=== PATIENT | female | born 1945 | race Caucasian/White ===

== ENCOUNTER → 2016-12-11 | Outpatient (CLI) | payer OTHER ==
[~2016-12-11] MED LIST: ASPI-113 PO; CEPH500C2 PO; CHOL100010 PO; COLC0.6T54 PO; DOCU-94 PO; DOXY100C76 PO; FURO80TA63 PO; HYDR-5688 PO; HYDR50TA3 PO; METO100T14 PO; OXYC-57 PO; POTA8CAP6 PO; SENN1TAB77 PO
[2016-12-11 12:27] LABS: CHOLESTEROL/HDL RATIO 3.4
[2016-12-11 12:33] LABS: BLOOD UREA NITROGEN 32 mg/dl (7-18); BUN/CREATININE RATIO 24.2 (10-20); CALCIUM 10.7 mg/dl (8.5-10.1); CARBON DIOXIDE 30 mmol/L (21-32); CHLORIDE 108 mmol/L (98-107); GLUCOSE 94 mg/dl (70-99); POTASSIUM 4.4 mmol/L (3.5-5.1); SODIUM 143 mmol/L (136-145)
[2016-12-11 12:39] LABS: MAGNESIUM 2.4 mg/dl (1.8-2.4); THYROID STIMULATING HORMONE 1.45 uIu/ml (0.300-4.500)
[2016-12-11 13:05] LABS: ESTIMATED AVERAGE GLUCOSE 91 mg/dl; HA1C FLAG Normal (Normal)
== END | disposition home or self-care (01) ==
LOC: C.LABPBG 08:52
PROVIDERS: ATTEND Family Medicine
DX: I25.10 Atherosclerotic heart disease of native coronary artery without angina pectoris (principal); I10 Essential (primary) hypertension; E66.9 Obesity, unspecified; R06.09 Other forms of dyspnea; I50.42 Chronic combined systolic (congestive) and diastolic (congestive) heart failure; E87.6 Hypokalemia; R73.9 Hyperglycemia, unspecified

== ENCOUNTER 2017-01-27 06:41 | Emergency (ER) | payer OTHER ==
[~2017-01-27] VITALS: Ht 152.4 cm; Wt 81.6 kg
[~2017-01-27 06:41] MED LIST changes: -CEPH500C2 PO; -DOCU-94 PO; -DOXY100C76 PO; -OXYC-57 PO; -SENN1TAB77 PO
[2017-01-27 06:50] VITALS: TEMP 36.7; Ht 152.4 cm; Wt 81.6 kg
[2017-01-27] MEDS ORDERED: MoRPHine SULFATE 4 MG/ML 1 ML CARP\\VIAL IV STA (06:58)
[2017-01-27] MEDS ORDERED: CEFTRIAXONE SOD INJ 1 GM ADDVIAL IV STA (06:58)
[2017-01-27] MEDS ORDERED: SODIUM CHLORIDE 0.9% 500ML 500 ML IV STA (06:58)
[2017-01-27] MEDS ORDERED: DOXYCYCLINE HYCLATE 100 MG CAP PO STA (06:58)
[2017-01-27] MEDS ORDERED: ONDANSETRON INJ 2 MG/ML 2 ML VIAL IV STA (06:58)
--- NOTE | 2017-01-27 06:59 | EMERGENCY ROOM VISIT NOTE ---
History Report prepared by Colt: Teri Marte Under the Supervision of: Dr. Chriss Gibbs M.D. First contact with patient: 06:53 Chief Complaint: ELBOW PAIN/INJURY Stated Complaint: RIGHT ELBOW PAIN History of Present Illness The patient is a 71 year old female who presents to the Emergency Room with complaints of persistent right elbow pain that began four days ago. She currently rates her discomfort as a 10/10 in severity. The patient states that her pain began [place] and since then has worsened. She denies any injury to the area. The patient states that movement of her elbow worsens her pain. She states that she has hydrocodone on hand for her chronic back pain, noting that she has taken those for her discomfort. The patient denies ever seeing an orthopedic doctor in the past. Source of History: patient Onset: four days ago Position: elbow (right) Symptom Intensity: 10/10 Timing: worsening, other (persistent) Modifying Factors (Worsening): movement (of right elebow) Review of Systems See HPI for pertinent positives & negatives. A total of 10 systems reviewed and were otherwise negative. Past Medical & Surgical Medical Problems: (1) CAD (coronary artery disease) (2) Dyslipidemia (3) GERD (gastroesophageal reflux disease) (4) Heart disease (5) History of coronary artery stent placement (6) HTN (hypertension) (7) Hypertension Nos (8) Osteoarthritis Surgical Problems: (1) History of arthroscopy of right shoulder (2) History of cholecystectomy (3) Hx of CABG Family History Cancer Diabetes mellitus Heart disease Hypertension Social History Smoking Status: Former Smoker Alcohol Use: none Housing Status: lives alone Occupation Status: employed Current/Historical Medications Scheduled Aspirin Enteric Coated (Ecotrin Or Generic), 325 MG PO DAILY Cephalexin Monohydrate (Keflex), 500 MG PO QID Cholecalciferol (Vitamin D), 2,000 INTER.UNIT PO DAILY Docusate Sodium (Colace), 1 CAP PO BID Doxycycline Monohydrate (Monodox), 100 MG PO BID Furosemide (Lasix), 40 MG PO DAILY Hydrochlorothiazide (Hctz), 1 TAB PO DAILY Metoprolol Tartrate (Lopressor) (Lopressor), 100 MG PO DAILY Potassium Chloride (Klor-Con Ext Rel), 20 MEQ PO DAILY Sennosides (Senokot), 8.6 MG PO HS Scheduled PRN Colchicine (Colchicine), 0.6 MG PO DIRECTED PRN for gout Hydrocodone/Acetaminophen 5MG/325MG ([place] 5MG/325MG), 1 TAB PO Q6H PRN for Pain Oxycodone/Acetaminophen 5MG/325MG (Percocet 5MG/325MG), 1-2 TAB PO Q4H PRN for Pain Allergies Coded Allergies: Sulfa Drugs (Verified Allergy, Mild, 03/11/16) Sulfamethoxazole (Verified Allergy, Mild, 03/11/16) Trimethoprim (Verified Allergy, Mild, 03/11/16) Latex1 -Allergic Contact Dermititis (Verified Adverse Reaction, Intermediate, "COUGH, SWEAT", 03/11/16) Physical Exam Vital Signs Date Time Temp Pulse Resp B/P Pulse Ox O2 Delivery O2 Flow Rate FiO2 01/27/17 08:56 64 20 182/81 94 01/27/17 08:00 58 20 135/95 95 Room Air 01/27/17 07:40 62 20 205/88 97 Room Air 01/27/17 06:50 36.7 67 16 182/94 99 Room Air Physical Exam GENERAL: Patient is a healthy-appearing well-nourished HEAD: Normocephalic atraumatic EYES: Ocular movements intact pupils equal and react to light OROPHARYNX mucous membranes are moist no exudates present no erythema or edema present NECK: Supple no nuchal rigidity CHEST: Good equal expansion LUNGS: Clear and equal to auscultation CARDIAC: Normal S1 and S2 ABDOMEN: Soft nontender no guarding BACK: No CVA tenderness EXTREMITIES: 2 inch area of redness to the olecranon bursa, but no evidence of fluctuance or evidence of an abscess to be drained. NEURO: Patient is following commands is answering questions appropriately. Alert and oriented x3 Cranial Nerves 2-12 grossly intact Medical Decision & Procedures ER Provider Diagnostic Interpretation: X-ray results as stated below per interpretation by me and the radiologist: RIGHT ELBOW 3 VIEWS CLINICAL HISTORY: Right elbow pain of several days' duration. FINDINGS: 3 views of the right elbow are obtained. No prior studies are available for comparison at the time of dictation. The skeletal structures are osteopenic. No acute fracture is identified. The joint spaces appear preserved. There are small enthesophytes arising from the humeral epicondyles. No joint effusion is identified. There is calcification of the distal triceps tendon at its insertion. Soft tissue edema is present dorsally. IMPRESSION: 1. Soft tissue swelling with no radiographic evidence of acute fracture. 2. Osteopenia and mild degenerative change as above. Electronically signed by: Johnny Willis M.D. 01/27/2017 7:42 AM Dictated Date/Time: 01/27/2017 7:41 AM Laboratory Results 01/27/17 07:10 Red Blood Count 5.38, Mean Corpuscular Volume 89.6, Mean Corpuscular Hemoglobin 30.3, Mean Corpuscular Hemoglobin Concent 33.8, Mean Platelet Volume 11.5, Neutrophils (%) (Auto) 75.9, Lymphocytes (%) (Auto) 12.6, Monocytes (%) (Auto) 10.3, Eosinophils (%) (Auto) 0.7, Basophils (%) (Auto) 0.2, Neutrophils # (Auto ) 8.90, Lymphocytes # (Auto) 1.48, Monocytes # (Auto) 1.21, Eosinophils # (Auto ) 0.08, Basophils # (Auto) 0.02 01/27/17 07:10 Test 01/27/17 07:10 White Blood Count 11.73 K/uL (4.8-10.8) Red Blood Count 5.38 M/uL (4.2-5.4) Hemoglobin 16.3 g/dL (12.0-16.0) Hematocrit 48.2 % (37-47) Mean Corpuscular Volume 89.6 fL (80-100) Mean Corpuscular Hemoglobin 30.3 pg (25-34) Mean Corpuscular Hemoglobin Concent 33.8 g/dl (32-36) Platelet Count 296 K/uL (130-400) Mean Platelet Volume 11.5 fL (7.4-10.4) Neutrophils (%) (Auto) 75.9 % Lymphocytes (%) (Auto) 12.6 % Monocytes (%) (Auto) 10.3 % Eosinophils (%) (Auto) 0.7 % Basophils (%) (Auto) 0.2 % Neutrophils # (Auto) 8.90 K/uL (1.4-6.5) Lymphocytes # (Auto) 1.48 K/uL (1.2-3.4) Monocytes # (Auto) 1.21 K/uL (0.11-0.59) Eosinophils # (Auto) 0.08 K/uL (0-0.5) Basophils # (Auto) 0.02 K/uL (0-0.2) RDW Standard Deviation 41.9 fL (36.4-46.3) RDW Coefficient of Variation 12.9 % (11.5-14.5) Immature Granulocyte % (Auto) 0.3 % Immature Granulocyte # (Auto) 0.04 K/uL (0.00-0.02) Erythrocyte Sedimentation Rate 8 mm/hr (0-21) Anion Gap 5.0 mmol/L (3-11) Est Creatinine Clear Calc Drug Dose 38.1 ml/min Estimated GFR () 48.1 Estimated GFR (Non- 41.5 BUN/Creatinine Ratio 27.4 (10-20) Uric Acid 10.1 mg/dl (2.6-7.2) Calcium Level 10.5 mg/dl (8.5-10.1) Total Bilirubin 0.8 mg/dl (0.2-1) Direct Bilirubin 0.2 mg/dl (0-0.2) Aspartate Amino Transf (AST/SGOT) 16 U/L (15-37) Alanine Aminotransferase (ALT/SGPT) 25 U/L (12-78) Alkaline Phosphatase 116 U/L (45-117) C-Reactive Protein 10.90 mg/dl (0-0.29) Total Protein 7.6 gm/dl (6.4-8.2) Albumin 3.3 gm/dl (3.4-5.0) Thyroid Stimulating Hormone (TSH) 1.230 uIu/ml (0.300-4.500) Lyme Disease IgG Antibody NEG (NEG) Anti-Streptolysin O Antibody Screen NEG IU/ml (<200 IU) Labs reviewed by ED physician. Medications Administered Medications (Trade) Dose Ordered Sig/Andrew Route Start Time Stop Time Status Last Admin Dose Admin Ceftriaxone Sodium (Rocephin Inj) 1 gm NOW STAT IV 01/27/17 06:58 01/27/17 07:02 DC 01/27/17 07:46 1 GM Doxycycline Hyclate 100 mg 100 mg ONE STAT PO 01/27/17 06:58 01/27/17 07:02 DC 01/27/17 07:57 100 MG Sodium Chloride (Nss 500ml) 500 ml @ 999 mls/hr Q31M STAT IV 01/27/17 06:58 01/27/17 07:28 DC 01/27/17 06:58 999 MLS/HR Morphine Sulfate (MoRPHine SULFATE INJ) 4 mg NOW STAT IV 01/27/17 06:58 01/27/17 07:02 DC 01/27/17 07:42 4 MG Ondansetron HCl (Zofran Inj) 4 mg NOW STAT IV 01/27/17 06:58 01/27/17 07:02 DC 01/27/17 07:41 4 MG ED Course 0654: Past medical records reviewed. The patient was evaluated in room A11B. A complete history and physical examination was performed. 0658: Ordered Zofran Inj 4 mg IV, Morphine Sulfate 4 mg IV, Sodium Chloride 500 ml @ 999 mls/hr IV, Vibramycin Cap 100 mg PO, Rocephin Inj 1 gm IV. 0805: I reevaluated the patient and she is resting comfortably. I discussed all the exam findings with her and I discussed the treatment plan. She verbalized complete understanding and agreement. She is ready to go home. Medical Decision Differential diagnosis: Etiologies such as cellulitis, abscess, MRSA infection, DVT, necrotizing fasciitis, dermatitis, drug eruption, as well as others were entertained. This is a 71-year-old female who presents emergency department complaining of right elbow pain. Patient has an area of cellulitis to the left elbow and I do not believe has a septic joint and she has full range of motion of the elbow. She does have a slight elevation in her white blood cell count however her ESR is normal. Based on these findings I will start the patient on Rocephin and doxycycline as she is allergic to Bactrim. The patient's x-rays do not show any evidence of fracture dislocation subluxation. Based on these findings I felt that the patient can be placed in a sling and I strongly recommended that the patient follow-up with orthopedics this week. Impression Primary Impression: Elbow pain, right Scribe Attestation The scribe's documentation has been prepared under my direction and personally reviewed by me in its entirety. I confirm that the note above accurately reflects all work, treatment, procedures, and medical decision making performed by me. Departure Information Dispostion Home / Self-Care Prescriptions Docusate Sodium (COLACE) 100 Mg Cap 1 CAP PO BID for 10 Days, #20 CAP Prov: Chriss Gibbs MD 01/27/17 Sennosides (SENOKOT) 8.6 Mg Tab 8.6 MG PO HS for 10 Days, #10 TAB Prov: Chriss Gibbs MD 01/27/17 Oxycodone/Acetaminophen 5MG/325MG (PERCOCET 5MG/325MG) Tab 1-2 TAB PO Q4H Y for Pain, #14 TAB Prov: Chriss Gibbs MD 01/27/17 Doxycycline Monohydrate (Monodox) 100 Mg Cap 100 MG PO BID for 10 Days, #20 CAP Prov: Chriss Gibbs MD 01/27/17 Cephalexin Monohydrate (KEFLEX) 500 Mg Cap 500 MG PO QID for 10 Days, #40 CAP Prov: Chriss Gibbs MD 01/27/17 Referrals Sabina Lilly MD (PCP) Forms HOME CARE DOCUMENTATION FORM, IMPORTANT VISIT INFORMATION, School Instructions, Work Instructions Patient Instructions Cellulitis - [facility], [facility] Additional Instructions Follow up with DR Sears's office this week You have been examined and treated today on an emergency basis only. This is not a substitute for, or an effort to provide, complete comprehensive medical care. It is impossible to recognize and treat all injuries or illnesses in a single emergency department visit. It is therefore important that you follow up closely with Dr Lilly. Call as soon as possible for an appointment. Thank you for your time and consideration. I look forward to speaking with you again soon. Please don't hesitate to call us if you have any questions.
[2017-01-27 07:22] LABS: BASO % 0.2 %; BASO ABS # 0.02 K/uL (0-0.2); COMPLETE YES; EOS % 0.7 %; HEMATOCRIT 48.2 % (37-47); IG% 0.3 %; LYMPH % 12.6 %; LYMPH ABS # 1.48 K/uL (1.2-3.4); MEAN CELL VOLUME 89.6 fL (80-100); MEAN CORPUSCULAR HEMOGLOBIN 30.3 pg (25-34); MEAN CORPUSCULAR HGB CONC 33.8 g/dl (32-36); MEAN PLATELET VOLUME 11.5 fL (7.4-10.4); MONO % 10.3 %; NEUT % 75.9 %; PLATELET COUNT 296 K/uL (130-400); RED BLOOD COUNT 5.38 M/uL (4.2-5.4); WHITE BLOOD COUNT 11.73 K/uL (4.8-10.8)
[2017-01-27 07:41] LABS: BUN/CREATININE RATIO 27.4 (10-20); CALCIUM 10.5 mg/dl (8.5-10.1); CREATININE 1.3 mg/dl (0.60-1.20); POTASSIUM 4.1 mmol/L (3.5-5.1); URIC ACID 10.1 mg/dl (2.6-7.2)
--- NOTE | 2017-01-27 07:44 | DIAGNOSTIC IMAGING REPORT ---
RIGHT ELBOW 3 VIEWS CLINICAL HISTORY: Right elbow pain of several days' duration. FINDINGS: 3 views of the right elbow are obtained. No prior studies are available for comparison at the time of dictation. The skeletal structures are osteopenic. No acute fracture is identified. The joint spaces appear preserved. There are small enthesophytes arising from the humeral epicondyles. No joint effusion is identified. There is calcification of the distal triceps tendon at its insertion. Soft tissue edema is present dorsally. IMPRESSION: 1. Soft tissue swelling with no radiographic evidence of acute fracture. 2. Osteopenia and mild degenerative change as above. Electronically signed by: Johnny Willis M.D. 01/27/2017 7:42 AM Dictated Date/Time: 01/27/2017 7:41 AM
[2017-01-27 07:51] LABS: C-REACTIVE PROTEIN 10.9 mg/dl (0-0.29); THYROID STIMULATING HORMONE 1.23 uIu/ml (0.300-4.500)
[2017-01-27] MEDS ORDERED: OXYC-57 PO (08:00)
[2017-01-27] MEDS ORDERED: CEPH500C2 PO (08:00)
[2017-01-27] MEDS ORDERED: DOXY100C76 PO (08:00)
[2017-01-27] MEDS ORDERED: DOCU-94 PO (08:02)
[2017-01-27] MEDS ORDERED: SENN1TAB77 PO (08:02)
[2017-01-27 08:14] LABS: ANTI-STREP O SCR: 5YRS OR > NEG IU/ml (<200 IU)
[2017-01-27 08:54] LABS: LYME DISEASE AB IGG NEG (NEG)
[2017-01-27 08:56] VITALS: BP 182/81; PULSE 64; O2SAT 94
[2017-01-27 09:17] LABS: LYME DISEASE AB IGM POS (NEG)
== END 2017-01-27 09:00 | disposition home or self-care (01) ==
LOC: C.EDB 06:42 → C.EDA 09:00
DX: M25.521 Pain in right elbow (principal); L03.114 Cellulitis of left upper limb; I25.10 Atherosclerotic heart disease of native coronary artery without angina pectoris; I10 Essential (primary) hypertension; M19.90 Unspecified osteoarthritis, unspecified site; Z95.1 Presence of aortocoronary bypass graft; Z98.61 Coronary angioplasty status; Z90.49 Acquired absence of other specified parts of digestive tract; Z98.890 Other specified postprocedural states; Z79.82 Long term (current) use of aspirin; Z79.899 Other long term (current) drug therapy

== ENCOUNTER → 2017-06-09 | Outpatient (CLI) | payer OTHER ==
[2017-06-09 18:13] LABS: ALT/SGPT 27 U/L (12-78); BLOOD UREA NITROGEN 30 mg/dl (7-18); BUN/CREATININE RATIO 22.8 (10-20); CALCIUM 11.2 mg/dl (8.5-10.1); CARBON DIOXIDE 27 mmol/L (21-32); CHLORIDE 103 mmol/L (98-107); GLUCOSE 94 mg/dl (70-99); POTASSIUM 3.1 mmol/L (3.5-5.1); SODIUM 140 mmol/L (136-145)
== END | disposition home or self-care (01) ==
LOC: C.LABPBG 15:48
PROVIDERS: ATTEND Podiatrist Foot & Ankle Surgery
DX: M10.072 Idiopathic gout, left ankle and foot (principal); I10 Essential (primary) hypertension; E87.6 Hypokalemia; R73.9 Hyperglycemia, unspecified

== ENCOUNTER → 2017-06-15 | Outpatient (CLI) | payer OTHER ==
[2017-06-15 12:01] LABS: CHOLESTEROL/HDL RATIO 3.6
== END | disposition home or self-care (01) ==
LOC: C.LABPBG 07:55
PROVIDERS: ATTEND Family Medicine
DX: I10 Essential (primary) hypertension (principal); E87.6 Hypokalemia; R73.9 Hyperglycemia, unspecified

== ENCOUNTER → 2017-07-22 | Outpatient (CLI) | payer OTHER ==
[2017-07-22 17:49] LABS: BLOOD UREA NITROGEN 26 mg/dl (7-18); BUN/CREATININE RATIO 19.6 (10-20); CREATININE 1.34 mg/dl (0.60-1.20)
== END | disposition home or self-care (01) ==
LOC: C.LABPBG 11:41
PROVIDERS: ATTEND Podiatrist Foot & Ankle Surgery
DX: M10.072 Idiopathic gout, left ankle and foot (principal); E87.6 Hypokalemia

== ENCOUNTER → 2017-07-23 | Outpatient (CLI) | payer OTHER | END | disposition home or self-care (01) | LOC: C.MAMM 09:22 | PROVIDERS: ATTEND Family Medicine | DX: M81.0 Age-related osteoporosis without current pathological fracture (principal) ==

== ENCOUNTER → 2017-07-23 | Outpatient (CLI) | payer OTHER ==
--- NOTE | 2017-07-23 10:57 | DIAGNOSTIC IMAGING REPORT ---
ULTRASOUND ABDOMINAL WALL CLINICAL HISTORY: Abdominal mass. COMPARISON STUDY: No priors. FINDINGS: Real-time grayscale sonography of the ventral abdominal wall is performed the indicator site of interest, located in the lower abdomen slightly right of midline. There is focal protuberance in this region which contains bowel loops. No discrete mass lesion is clearly identified and no focal hernia is seen. This likely represents laxity of the ventral abdominal wall with protrusion of abdominal contents. IMPRESSION: Suspect focal laxity of the abdominal wall at the indicated site of interest with protrusion of abdominal contents. Follow-up with a contrast-enhanced abdominal CT scan is recommended for further interrogation and to exclude underlying mass. Electronically signed by: Johnny Willis M.D. 07/23/2017 10:56 AM Dictated Date/Time: 07/23/2017 10:54 AM
== END | disposition home or self-care (01) ==
LOC: C.ULTR 10:16
PROVIDERS: ATTEND Family Medicine
DX: R19.00 Intra-abdominal and pelvic swelling, mass and lump, unspecified site (principal)

== ENCOUNTER → 2017-08-13 | Outpatient (CLI) | payer OTHER ==
[~2017-08-13] MED LIST changes: +OPTIRAY 320 IV PRN
--- NOTE | 2017-08-13 11:10 | DIAGNOSTIC IMAGING REPORT ---
ABDOMEN AND PELVIS CT WITH IV AND ORAL CONTRAST CT DOSE: 1082.19 mGy.cm HISTORY: Follow-up study to assess abdominal wall hernia AB MASS R/O ABDOMINAL HERNIA TECHNIQUE: Multiaxial CT images of the abdomen and pelvis were performed following the use of intravenous and oral contrast. A dose lowering technique was utilized adhering to the principles of ALARA. COMPARISON STUDY: Ultrasound of the abdomen 07/23/2017. FINDINGS: Subsegmental subpleural reticular opacities of the lung bases suggest areas of chronic scarring. Thin-walled cyst of the lung bases are also noted. There are patchy nodular opacities measuring up to 5 mm within the lung bases suspicious for pneumonitis. No pneumatosis or pneumoperitoneum identified. Imaged inferior cardiac chambers are mildly enlarged. Coronary arterial calcifications are noted. Prior cholecystectomy. The liver, spleen, and adrenal glands are within normal limits. There is moderate diffuse pancreatic atrophy. Nonspecific mildly prominent retroperitoneal lymph nodes are seen with a 7 mm short axis lymph node seen adjacent to the aorta on image 1:30 series 3 and retrocaval lymph node measuring 7 mm on image 113 series 3. There is moderate to severe atherosclerosis of the aorta with mild aortic tortuosity. Indeterminate 10 x 7 mm lesion of the lateral aspect interpolar left kidney appears to demonstrate internal enhancement. Nonobstructing 2 mm calculus of the inferior pole left kidney. Moderate scarring with parenchymal thinning involves interpolar right kidney. 3 mm calcification is seen adjacent to the area of probable scarring of the inferior pole kidney. No obstructive uropathy. The urinary bladder is within normal limits. Prior hysterectomy. Small sliding-type hiatal hernia. Moderate colonic diverticulosis without diverticulitis. The appendix is not seen and may be surgically absent. There is a large infraumbilical ventral midline abdominal wall hernia containing both mesenteric fat and nonobstructed loops of contrast-filled small bowel with diastases of the hernia sac measuring up to 4.3 x 5.2 cm. No associated inflammatory stranding. No acute soft tissue around the. The bones appear mildly demineralized. Multilevel degenerative changes of the spine. Lumbar levoscoliosis. IMPRESSION: 1. Large infraumbilical ventral midline abdominal wall hernia contains mesenteric fat and nonobstructed loops of contrast-filled small bowel. 2. Partially exophytic 10 x 7 mm lesion of the lateral aspect interpolar left kidney appears to demonstrate internal enhancement, suspicious for possible renal cell carcinoma. This could be confirmed with a follow-up renal protocol CT. 3. Patchy groundglass and nodular opacities of the lung bases, left greater then right are suspicious for pneumonitis. 4. Small sliding type hiatal hernia. 5. Moderate colonic diverticulosis without diverticulitis. 6. Prior hysterectomy and cholecystectomy. Electronically signed by: Ray Plata M.D. 08/13/2017 11:09 AM Dictated Date/Time: 08/13/2017 10:59 AM
== END | disposition home or self-care (01) ==
LOC: C.CTS 10:35
PROVIDERS: ATTEND Surgery
DX: R19.00 Intra-abdominal and pelvic swelling, mass and lump, unspecified site (principal); K43.9 Ventral hernia without obstruction or gangrene; K44.9 Diaphragmatic hernia without obstruction or gangrene; K57.90 Diverticulosis of intestine, part unspecified, without perforation or abscess without bleeding

== ENCOUNTER → 2017-08-24 | Outpatient (CLI) | payer OTHER ==
[~2017-08-24] MED LIST changes: -OPTIRAY 320 IV PRN
[2017-08-24 12:25] LABS: BASO % 0.9 %; BASO ABS # 0.08 K/uL (0-0.2); COMPLETE YES; HEMATOCRIT 46.7 % (37-47); IG% 0.2 %; LYMPH % 31.1 %; LYMPH ABS # 2.79 K/uL (1.2-3.4); MEAN CELL VOLUME 93.6 fL (80-100); MEAN CORPUSCULAR HEMOGLOBIN 31.3 pg (25-34); MEAN CORPUSCULAR HGB CONC 33.4 g/dl (32-36); MEAN PLATELET VOLUME 12.5 fL (7.4-10.4); MONO % 9.9 %; NEUT % 52.9 %; PLATELET COUNT 272 K/uL (130-400); RED BLOOD COUNT 4.99 M/uL (4.2-5.4); WHITE BLOOD COUNT 8.96 K/uL (4.8-10.8)
[2017-08-24 12:31] LABS: INR 0.9 (0.9-1.1); PARTIAL THROMBOPLASTIN RATIO 1.1; PROTHROMBIN TIME (PATIENT) 9.8 SECONDS (9.0-12.0)
[2017-08-24 12:39] LABS: URINE APPEARANCE CLOUDY (CLEAR); URINE COLOR DK YELLOW; URINE EPITHELIAL CELL AUTO >30 /lpf (0-5); URINE NITRITE NEG (NEG); URINE SPECIFIC GRAVITY 1.034 (1.000-1.030); UROBILINOGEN NEG (NEG)
[2017-08-24 12:44] LABS: MANUAL MICROSCOPIC REQUIRED? NO; REVIEW REQ? YES
[2017-08-24 12:45] LABS: URINE BILIRUBIN NEG (NEG)
[2017-08-24 12:56] LABS: BLOOD UREA NITROGEN 28 mg/dl (7-18); BUN/CREATININE RATIO 20.1 (10-20); CALCIUM 10.4 mg/dl (8.5-10.1); CARBON DIOXIDE 29 mmol/L (21-32); CHLORIDE 103 mmol/L (98-107); CREATININE 1.38 mg/dl (0.60-1.20); GLUCOSE 94 mg/dl (70-99); POTASSIUM 4.2 mmol/L (3.5-5.1); SODIUM 138 mmol/L (136-145)
== END | disposition home or self-care (01) ==
LOC: C.LABPBG 08:50
PROVIDERS: ATTEND Family Medicine
DX: Z01.818 Encounter for other preprocedural examination (principal)

== ENCOUNTER → 2018-01-15 | Outpatient (CLI) | payer OTHER ==
[~2018-01-15] MED LIST changes: -HYDR50TA3 PO; -POTA8CAP6 PO; +SPIR25TA PO
[2018-01-15 13:18] LABS: BLOOD UREA NITROGEN 25 mg/dl (7-18); CALCIUM 9.9 mg/dl (8.5-10.1); CARBON DIOXIDE 28 mmol/L (21-32); CREATININE 1.22 mg/dl (0.60-1.20); GLUCOSE 97 mg/dl (70-99); POTASSIUM 4.4 mmol/L (3.5-5.1); SODIUM 138 mmol/L (136-145)
[2018-01-15 14:00] LABS: ALT/SGPT 26 U/L (12-78); AST/SGOT 22 U/L (15-37); CHOLESTEROL 203 mg/dl (0-200); LDL CHOLESTEROL (DIRECT) 150 mg/dl
== END | disposition home or self-care (01) ==
LOC: C.LABPBG 08:46
PROVIDERS: ATTEND Internal Medicine Cardiovascular Disease
DX: I35.0 Nonrheumatic aortic (valve) stenosis (principal); I50.42 Chronic combined systolic (congestive) and diastolic (congestive) heart failure; E78.5 Hyperlipidemia, unspecified; I10 Essential (primary) hypertension

== ENCOUNTER → 2018-04-19 | Outpatient (CLI) | payer OTHER ==
--- NOTE | 2018-04-19 11:56 | DIAGNOSTIC IMAGING REPORT ---
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 TECHNIQUE: PET/CT was performed from the skull base through the proximal thighs following the intravenous administration of 10.879 mCi of F18-FDG. Blood glucose level 84 mg/dL. The injection was performed at 9:27 AM and imaging began at 10:[address] was performed for attenuation correction purposes and anatomic localization. COMPARISON: None. CT DOSE (mGy.cm): The estimated cumulative dose is 781.55. FINDINGS: Head and neck: No FDG-avid mass in the visualized portion of the head or neck. No FDG avid or enlarged lymph nodes in the neck. Surgical clips may be present in the region of the right cervical lymph node chain. Chest: Normal thyroid and thoracic inlet. Asymmetric parenchyma in the left breast (series 3 image 87). No evidence of a focal FDG avid mass. No FDG avid axillary, supraclavicular, hilar or mediastinal lymphadenopathy. Evaluation of the chito on anatomic imaging limited without intravenous contrast. Atherosclerosis of the aorta. Postsurgical changes of median sternotomy with coronary artery bypass grafting. Multichamber enlargement of the heart. Coronary artery calcification. No pericardial or pleural effusion. No FDG avid focal infiltrate or nodule. Mosaic attenuation suggest small airways disease. Scattered pulmonary cysts or emphysematous changes. Peripheral punctate nodularity in the left lower lobe, nonspecific and possibly postinfectious or postinflammatory. Less pronounced though similar changes evident in the right lower lobe. The largest focal nodule measures 4 mm (series 3 image 105). Airways patent. Abdomen and pelvis: Normal physiologic distribution of radiotracer in the gastrointestinal and genitourinary tracts. No FDG avid lymphadenopathy or mass lesion. Diverticulosis of the descending and sigmoid colon. Small hiatal hernia. Large small bowel containing ventral hernia with a relatively narrow neck. No bowel obstruction or associated inflammation to suggest strangulation. Atherosclerosis. Musculoskeletal: Focal FDG avidity at the origins of the hamstring muscle complex is, left greater than right, likely chronic injury. Asymmetric atrophy of right gluteal muscles. Degenerative changes of the spine. IMPRESSION: 1. Initial PET/CT demonstrates no focal FDG avidity to suggest a site of malignancy. No lymphadenopathy. 2. Nonspecific peripheral punctate nodularity in the bilateral lower lobes of the lungs, which may be postinfectious or postinflammatory. This could be followed with chest CT as clinically indicated. 3. Cardiomegaly with postsurgical changes of CABG. 4. Diverticulosis. 5. Large ventral hernia. Electronically signed by: Uriel Young M.D. 04/19/2018 11:54 AM Dictated Date/Time: 04/19/2018 11:44 AM
== END | disposition home or self-care (01) ==
LOC: C.PET 08:58
PROVIDERS: ATTEND Internal Medicine Hematology & Oncology
DX: C88.4 Extranodal marginal zone B-cell lymphoma of mucosa-associated lymphoid tissue [MALT-lymphoma] (principal)

== ENCOUNTER → 2018-04-22 | Outpatient (CLI) | payer OTHER ==
[2018-04-22 13:38] LABS: BASO % 0.8 %; BASO ABS # 0.05 K/uL (0-0.2); EOS % 3.2 %; HEMATOCRIT 45.1 % (37-47); HEMOGLOBIN 15.3 g/dL (12.0-16.0); IG# 0.01 K/uL (0.00-0.02); LYMPH % 30.2 %; LYMPH ABS # 1.91 K/uL (1.2-3.4); MEAN CELL VOLUME 93.2 fL (80-100); MEAN CORPUSCULAR HEMOGLOBIN 31.6 pg (25-34); MEAN CORPUSCULAR HGB CONC 33.9 g/dl (32-36); MEAN PLATELET VOLUME 12.7 fL (7.4-10.4); MONO % 10.1 %; MONO ABS # 0.64 K/uL (0.11-0.59); NEUT % 55.5 %; NEUT ABS # 3.51 K/uL (1.4-6.5); PLATELET COUNT 260 K/uL (130-400); RED CELL DISTRIBUTION WIDTH CV 13.8 % (11.5-14.5); WHITE BLOOD COUNT 6.32 K/uL (4.8-10.8)
[2018-04-22 13:49] LABS: ALBUMIN 3.5 gm/dl (3.4-5.0); ALKALINE PHOSPHATASE 92 U/L (45-117); ALT/SGPT 23 U/L (12-78); AST/SGOT 21 U/L (15-37); BLOOD UREA NITROGEN 36 mg/dl (7-18); CALCIUM 10.3 mg/dl (8.5-10.1); CARBON DIOXIDE 26 mmol/L (21-32); CREATININE 1.24 mg/dl (0.60-1.20); GLUCOSE 90 mg/dl (70-99); POTASSIUM 4.6 mmol/L (3.5-5.1); SODIUM 140 mmol/L (136-145); TOTAL PROTEIN 6.9 gm/dl (6.4-8.2)
== END | disposition home or self-care (01) ==
LOC: C.LABPBG 10:02
PROVIDERS: ATTEND Internal Medicine Hematology & Oncology
DX: C88.4 Extranodal marginal zone B-cell lymphoma of mucosa-associated lymphoid tissue [MALT-lymphoma] (principal)

== ENCOUNTER 2021-03-03 19:05 | Inpatient (IN) ==
--- NOTE | 2021-03-03 19:29 | Emergency Department Note ---
Impression & Plan Weakness, Debilitated, ELDON (acute kidney injury), Acute dehydration ED Provider Note NAME: GEMINI EDMONDS AGE: 75 SEX: F : 1945 ARRIVES VIA: Ambulance INFORMANT: [Patient][ems] ED PROVIDER(S): [Johnny Dhillon MD] CHIEF COMPLAINT: Weakness HISTORY OF PRESENT ILLNESS: Patient is a 75-year-old female who presents to the ER with about 2 weeks of weakness. Things have progressed to the point where she cannot even walk with her walker. The ambulance was called today. Patient denies any chest pain or shortness of breath. She has had some occasional nausea but there has been no vomiting. No diarrhea. No urinary complaints. She has not fallen, no syncope. The patient states that she is not sure why she is so weak. She states she does live alone. REVIEW OF SYSTEMS: See HPI for pertinent positives and negatives. A total of ten systems were reviewed and were otherwise negative. PMHx/PSHx: See Below SOCIAL HISTORY: See Below. PHYSICAL EXAM: GENERAL: Patient is in no acute distress. HEENT: No acute trauma, normocephalic atraumatic, mucous membranes moist, no nasal congestion, no scleral icterus. NECK: No stridor, no adenopathy, no meningismus, trachea is midline. LUNGS: Clear to auscultation bilaterally, no wheeze, no rhonchi, breath sounds equal. HEART: 2/6 systolic murmur, regular rate and rhythm. ABDOMEN: Soft, nontender, bowel sounds positive, nontender right sided abdominal wall hernia, no peritonitis. EXTREMITIES: No cyanosis or edema, full range of motion of all the joints without pain or difficulty, no signs for acute trauma. NEUROLOGIC: Oriented x 3, no acute motor or sensory deficits, no focal weakness. She does have pain in the left groin when she tries to lift her left leg but the left leg is not weak. SKIN: There is a erythematous yeast appearing rash in the groin creases, worse on the left. No jaundice, no diaphoresis. DIFFERENTIAL DIAGNOSIS: Infection, dehydration, metabolic abnormality, hypo/hyperglycemia, electrolyte disturbance, anemia, hypoxia, cardiac sources, intracerebral event, toxicologic issues, stroke, TIA, as well as other pathologies. EMERGENCY DEPARTMENT COURSE/PROCEDURES: ECG: Indication was weakness. The ECG shows a normal sinus rhythm with a right bundle branch block. The rate is 70. There is no ST elevation, no PVCs. QTC is 449. No old ECGs available for comparison. Continuous Cardiac Monitoring: An order was placed for continuous cardiac monitoring. The monitor shows a rate of 72 with normal sinus rhythm. MEDICAL DECISION MAKING: There is no leukocytosis or concerning anemia. There is a normal platelet count. There is a slight elevation to the creatinine consistent with some mild acute kidney injury. No significant electrolyte abnormality in need of emergent correction. No worrisome liver enzyme elevation. ECG shows a sinus rhythm, no acute ischemia. Cardiac enzyme testing x1 is not consistent with acute cardiac injury. Patient appears to be in a euthyroid state. Urinalysis does not show infection, some contamination was seen. Covid testing returned negative. Chest film did not show pneumonia or CHF. Brain CT shows no acute bleed or mass- effect. On exam, the patient is globally weak, no focal weakness found, no speech slur. The patient received IV saline, 1 L. The patient presents with progressive weakness over the last 1 to 2 weeks. She is now unable to get around even with a walker. She lives alone. As per our nursing staff, the patient was so weak, she could barely sit herself up in bed or even roll over in bed. The patient is not safe for discharge home. The cause for the profound weakness is unclear. Patient is likely going to require rehab. Possibly, inpatient rehab. I spoke to the patient and case assembler. The on-call hospitalist was consulted. Past Med/Surg History Medical History CAD (coronary artery disease) Cardiac murmur Chronic kidney disease Congestive heart failure Dyslipidemia GERD (gastroesophageal reflux disease) Gout Hypertension Lumbar radiculopathy Lumbar spinal stenosis MALT (mucosa associated lymphoid tissue) Osteoarthritis Surgical History Amputated toe of left foot History of cardiac cath 1995 [facility] - NO STENTS --> CABG History of carotid endarterectomy RT - 2016 - ULTRASOUND Q6M - LAST 12/2017 - NO ISSUES History of coronary artery bypass graft 1995 [facility] - NO ISSUES SINCE - FOLLOW DR. Cezar CAZARES History of lumpectomy of right breast (~2018) History of shoulder surgery Hx of cholecystectomy S/P REED-BSO Family History Brother Myocardial infarction Cardiac disorder Hypertension Grandmother Uterine cancer Uterine leiomyoma Daughter Breast cancer Denies family history of Ovarian cancer Prostate cancer Colorectal cancer Social History Smoking Status: Former smoker Age Started Using Tobacco: 18; Age Quit Using Tobacco: 50; packs per day: 1; Second Hand Exposure: No; Hx Alcohol Use: Yes Alcohol type: wine and hard liquor Alcohol Intake Frequency: Monthly or Less Hx Substance Use: No Preferred Language: Albanian Communication Ability: Effective Visual Impairment: Limited Hearing Ability: Normal Firewall Engineer Required: No Beliefs That Will Affect Care: None marital status: / Current Living Situation: Alone current occupational status: retired Other Information That Helps Us Care for You: No Feels Safe at Home: Yes Childhood Exposure to Second-Hand Smoke: Yes Dental Care, Regularly: Yes Physical Activity Frequency: Does not Exercise Seatbelt Use: always Sunscreen Use: Yes Assistive Devices: Cane, Denture - Upper, Denture - Lower and Glasses Allergies Allergies Allergy/AdvReac Type Severity Reaction Status Date / Time Sulfa (Sulfonamide Allergy Mild skin turns Verified 02/21/21 13:43 Antibiotics) red, itchy, throat swelling sulfamethoxazole Allergy Mild skin turns Verified 02/21/21 13:43 red trimethoprim Allergy Mild skin turns Verified 02/21/21 13:43 red atorvastatin Allergy Verified 02/21/21 13:43 grass pollen Allergy Verified 02/21/21 13:43 Home Meds Home Medications Medication Instructions Recorded Confirmed furosemide [Lasix] 40 mg PO QAM #0 03/29/07 03/03/21 cholecalciferol (vitamin D3) 2,000 unit PO QAM #0 08/04/11 03/03/21 [Vitamin D3] nitroglycerin 0.4 mg sublingual 0.4 mg SL Q5M PRN #25 tab 05/04/19 03/03/21 tablet allopurinol 300 mg tablet 300 mg PO QAM 06/29/19 03/03/21 aspirin 81 mg tablet,delayed 81 mg PO QAM 08/03/19 03/03/21 release cilostazol 100 mg PO BID 03/03/21 03/03/21 famotidine 40 mg PO HS 03/03/21 03/03/21 spironolactone 50 mg PO QAM 03/03/21 03/03/21 Previous Rx's Medication Instructions Recorded hydrocodone 5 mg-acetaminophen 325 1 tab PO Q6H PRN #90 tab 02/05/21 mg tablet metoprolol tartrate 50 mg tablet 50 mg PO BID #60 tab 03/01/21 Results & Data (ED) Vital Signs Vital Signs - 24 hr 03/03/21 19:19 03/03/21 19:27 03/03/21 21:00 Temperature 37.1 C Temperature Source Oral Pulse Rate 75 Pulse Rate [Apical] 70 Respiratory Rate 18 18 Respiratory Depth Normal Normal Blood Pressure 182/95 H Blood Pressure [Right Arm] 199/98 H Blood Pressure Mean 124 Blood Pressure Mean [Right Arm] 131 Pulse Oximetry 94 94 97 Oxygen Delivery Method Room Air Room Air Room Air Sepsis Recent Fever Within 48 Hours No Sepsis New/Unexplained Change in Mental Status N/A Sepsis Action Taken by Nursing No Action Required Home Medications Current Medication List: was personally reviewed by me Laboratory Data Attestation: I reviewed the patient's lab results. Result diagrams: 03/03/21 19:34 03/03/21 19:34 Lab Results 03/03/21 03/03/21 03/03/21 Range/Units 19:34 19:34 19:43 WBC 9.53 (4.8-10.8) K/uL RBC 4.51 (4.2-5.4) M/uL Hgb 15.2 (12.0-16.0) g/dL Hct 44.1 (37-47) % MCV 97.8 (80-100) fL MCH 33.7 (25-34) pg MCHC 34.5 (32-36) g/dL RDW Std Deviation 48.4 H (36.4-46.3) fL RDW Coeff of Phylicia 13.6 (11.5-14.5) % Plt Count 233 (130-400) K/uL MPV 12.0 H (7.4-10.4) fL Immature Gran % (Auto) 0.2 % Neut % (Auto) 74.5 % Lymph % (Auto) 11.6 % Luna % (Auto) 12.4 % Eos % (Auto) 1.0 % Baso % (Auto) 0.3 % Neut # (Auto) 7.09 H (1.4-6.5) K/uL Lymph # (Auto) 1.11 L (1.2-3.4) K/uL Luna # (Auto) 1.18 H (0.11-0.59) K/uL Eos # (Auto) 0.10 (0-0.5) K/uL Baso # (Auto) 0.03 (0-0.2) K/uL Immature Gran # (Auto) 0.02 (0.00-0.02) K/uL Sodium 138 (136-145) mmol/L Potassium 3.9 (3.5-5.1) mmol/L Chloride 104 (98-107) mmol/L Carbon Dioxide 29 (21-32) mmol/L Anion Gap 5.0 (3-11) BUN 27 H (7-18) mg/dl Creatinine 1.62 H (0.6-1.2) mg/dl Est Cr Clr Drug Dosing 28.4 ml/min Est GFR ( Amer) 35.9 ml/min Est GFR (Non-Af Amer) 30.9 ml/min BUN/Creatinine Ratio 16.5 (10-20) Glucose 114 H (70-99) mg/dl Calcium 10.8 H (8.5-10.1) mg/dl Magnesium 2.0 (1.8-2.4) mg/dl Total Bilirubin 1.2 H (0.2-1) mg/dl AST 18 (15-37) U/L ALT 15 (12-78) U/L Alkaline Phosphatase 101 (45-117) U/L Troponin I < 0.015 (0-0.045) ng/ml Total Protein 7.3 (6.4-8.2) gm/dl Albumin 3.7 (3.4-5.0) gm/dl Globulin 3.6 (2.5-4.0) gm/dl Albumin/Globulin Ratio 1.0 (0.9-2) TSH 2.880 (0.300-4.500) uIu/ml Urine Color Yellow Urine Appearance Clear (Clear) Urine pH 6.5 (4.5-7.5) Ur Specific [place] 1.011 (1.000-1.030) Urine Protein 3+ H (Negative) Urine Glucose (UA) Negative (Negative) Urine Ketones Negative (Negative) Urine Blood Trace H (Negative) Urine Nitrite Negative (Negative) Urine Bilirubin Negative (Negative) Urine Urobilinogen Negative (Negative) Ur Leukocyte Esterase Negative (Negative) Urine WBC (Auto) 1-5 (0-5) /hpf Urine RBC (Auto) 0-4 (0-4) /hpf U Hyaline Cast (Auto) 5-10 H (0-5) /lpf U Epithel Cells (Auto) >30 H (0-5) /lpf Urine Bacteria (Auto) Negative (Negative) Ur Renal Epithelial Cell Not Reportable COVID-19 Eval Order SARS-CoV-2 (PCR) (Negative) 03/03/21 03/03/21 Range/Units 21:43 21:43 WBC (4.8-10.8) K/uL RBC (4.2-5.4) M/uL Hgb (12.0-16.0) g/dL Hct (37-47) % MCV (80-100) fL MCH (25-34) pg MCHC (32-36) g/dL RDW Std Deviation (36.4-46.3) fL RDW Coeff of Phylicia (11.5-14.5) % Plt Count (130-400) K/uL MPV (7.4-10.4) fL Immature Gran % (Auto) % Neut % (Auto) % Lymph % (Auto) % Luna % (Auto) % Eos % (Auto) % Baso % (Auto) % Neut # (Auto) (1.4-6.5) K/uL Lymph # (Auto) (1.2-3.4) K/uL Luna # (Auto) (0.11-0.59) K/uL Eos # (Auto) (0-0.5) K/uL Baso # (Auto) (0-0.2) K/uL Immature Gran # (Auto) (0.00-0.02) K/uL Sodium (136-145) mmol/L Potassium (3.5-5.1) mmol/L Chloride (98-107) mmol/L Carbon Dioxide (21-32) mmol/L Anion Gap (3-11) BUN (7-18) mg/dl Creatinine (0.6-1.2) mg/dl Est Cr Clr Drug Dosing ml/min Est GFR ( Amer) ml/min Est GFR (Non-Af Amer) ml/min BUN/Creatinine Ratio (10-20) Glucose (70-99) mg/dl Calcium (8.5-10.1) mg/dl Magnesium (1.8-2.4) mg/dl Total Bilirubin (0.2-1) mg/dl AST (15-37) U/L ALT (12-78) U/L Alkaline Phosphatase (45-117) U/L Troponin I (0-0.045) ng/ml Total Protein (6.4-8.2) gm/dl Albumin (3.4-5.0) gm/dl Globulin (2.5-4.0) gm/dl Albumin/Globulin Ratio (0.9-2) TSH (0.300-4.500) uIu/ml Urine Color Urine Appearance (Clear) Urine pH (4.5-7.5) Ur Specific [place] (1.000-1.030) Urine Protein (Negative) Urine Glucose (UA) (Negative) Urine Ketones (Negative) Urine Blood (Negative) Urine Nitrite (Negative) Urine Bilirubin (Negative) Urine Urobilinogen (Negative) Ur Leukocyte Esterase (Negative) Urine WBC (Auto) (0-5) /hpf Urine RBC (Auto) (0-4) /hpf U Hyaline Cast (Auto) (0-5) /lpf U Epithel Cells (Auto) (0-5) /lpf Urine Bacteria (Auto) (Negative) Ur Renal Epithelial Cell COVID-19 Eval Order Covid19 at [facility] SARS-CoV-2 (PCR) NEGATIVE (Negative) Administered Medications Sodium Chloride (Nss 1000ml) 1,000 mls @ 80 mls/hr IV .[id number] SEVERO Stop: 03/04/21 12:45 Last Admin: 03/04/21 00:47 Dose: 80 mls/hr Documented by: [id number] Discontinued Medications Sodium Chloride (Nss) 500 mls @ 999 mls/hr IV .Q31M SEVERO Stop: 03/03/21 20:00 Last Infusion: 03/03/21 20:31 Dose: 0 mls/hr Documented by: [id number] Admin: 03/03/21 20:00 Dose: 999 mls/hr Documented by: [id number] Sodium Chloride (Nss 1000ml) 500 mls @ 999 mls/hr IV .Q31M ONE Stop: 03/03/21 21:35 Last Infusion: 03/03/21 21:45 Dose: 0 mls/hr Documented by: [id number] Admin: 03/03/21 21:14 Dose: 999 mls/hr Documented by: [id number] Metoprolol Tartrate (Metoprolol Tartrate 25 Mg Tab) 25 mg PO NOW STA Stop: 03/04/21 00:29 Last Admin: 03/04/21 00:47 Dose: 25 mg Documented by: [id number] Imaging Data Attestation: I personally reviewed and interpreted this imaging study as follows: My Impression: Chest x-ray: There are some chronic findings, I see no CHF or pneumonia. Radiologist's Impression: Brain CT: There is no acute intracranial hemorrhage. There is extensive small vessel ischemic change of the white matter. There are remote lacunar infarcts on the right. There is no mass-effect or midline shift. There is no evidence for large vessel acute infarct. Discharge Plan Visit Data Chief Complaint: Weakness Stated Complaint: weakness ED Provider: Johnny Dhillon Discharge Problem: Weakness, Debilitated, ELDON (acute kidney injury), Acute dehydration Patient Disposition: Admitted As Inpatient Condition: Fair Discharge Instructions Interventions: ED Discharge Assessment Last Done: 03/03/21 23:55
[2021-03-03] MEDS ORDERED: SODIUM CHLORIDE 0.9% 500 ML IV SCH (19:30)
[2021-03-03 20:14] LABS: Basophils # (auto) 0.03 K/uL (0-0.2); Basophils % (auto) 0.3 %; Hematocrit (blood only) 44.1 % (37-47); Hemoglobin 15.2 g/dL (12.0-16.0); Immature Granulocytes # (auto) 0.02 K/uL (0.00-0.02); Immature Granulocytes % (auto) 0.2 %; Lymphocytes # (auto) 1.11 K/uL (1.2-3.4); Lymphocytes % (auto) 11.6 %; Mean Corpuscular Hemoglobin 33.7 pg (25-34); Mean Corpuscular Hgb Conc 34.5 g/dL (32-36); Mean Corpuscular Volume 97.8 fL (80-100); Monocytes # (auto) 1.18 K/uL (0.11-0.59); Monocytes % (auto) 12.4 %; Neutrophils # (auto) 7.09 K/uL (1.4-6.5); Neutrophils % (auto) 74.5 %; Platelet Count 233 K/uL (130-400); RDW Coefficient of Variation 13.6 % (11.5-14.5); RDW Standard Deviation 48.4 fL (36.4-46.3); Red Blood Count 4.51 M/uL (4.2-5.4); White Blood Count 9.53 K/uL (4.8-10.8)
[2021-03-03 20:21] LABS: Appearance Urine Clear (Clear); Bacteria Urine Automated Negative (Negative); Bilirubin Urine Negative (Negative); Blood Urine Trace (Negative); Color Urine Yellow; Epithelial Cell Urine Auto >30 /lpf (0-5); Glucose Urine UA Negative (Negative); Ketones Urine Negative (Negative); Leukocyte Esterase Urine Negative (Negative); Nitrite Urine Negative (Negative); Protein Urine 3+ (Negative); RBC Urine Automated 0-4 /hpf (0-4); Specific Gravity Urine 1.011 (1.000-1.030); Urobilinogen Urine Negative (Negative); pH Urine 6.5 (4.5-7.5)
[2021-03-03 20:33] LABS: Alanine Aminotransferase 15 U/L (12-78); Albumin Level 3.7 gm/dl (3.4-5.0); Aspartate Aminotransferase 18 U/L (15-37); BUN Creatinine Ratio 16.5 (10-20); Blood Urea Nitrogen 27 mg/dl (7-18); Calcium 10.8 mg/dl (8.5-10.1); Carbon Dioxide 29 mmol/L (21-32); Chloride 104 mmol/L (98-107); Creatinine Clr Calc Pharmacy 28.4 ml/min; Est GFR (African American) 35.9 ml/min; Est GFR (Non-African American) 30.9 ml/min; Glucose 114 mg/dl (70-99); Potassium 3.9 mmol/L (3.5-5.1); Sodium 138 mmol/L (136-145)
[2021-03-03 20:44] LABS: Alkaline Phosphatase 101 U/L (45-117); Bilirubin,Total 1.2 mg/dl (0.2-1); Globulin 3.6 gm/dl (2.5-4.0); Total Protein 7.3 gm/dl (6.4-8.2); Troponin I < 0.015 ng/ml (0-0.045)
[2021-03-03] MEDS ORDERED: SODIUM CHLORIDE 0.9% 1000ML 500 ML IV ONE (21:05)
--- NOTE | 2021-03-03 22:33 | History & Physical Report ---
Date of Service March 03, 2021 Assessment & Plan (1) Weakness: Mrs. Thompson is a 75 yo woman with a PMHx of lumbar spinal stenosis and hyperparathyroidism who presents with progressive weakness. - Etiology uncertain: no apparent sign of infection. Hgb is normal, patient not anemic. Suspect this is secondary to deconditioning vs. sedation effects from increased narcotic use vs. hypercalcemia due to hyperparathyroidism. - Although patient had an elevated PTH level of 135 in 12/2020, along with elevated serum calcium level and low vitamin D level, it does not appear as though she has been completely worked up or diagnosed with hyperparathyroidism. I have ordered a phosphorus level. If low, patient should have a sestimibe scan. - I will order tylenol, hydrocodone and a K pad for her back pain. She likely needs to be re-evaluated by her pain management provider for a repeat injection - PT/OT ordered (2) Elevated serum creatinine: - Cr 1.62 on admission (baseline 1.2-09/09) - hx of underlying stage 3 CKD - gentle IV hydration - avoid renotoxic medications - repeat BMP in AM (3) Lumbar spinal stenosis: - follows with [facility] pain management- last injection was with Dr. Nael on 09/26/2020 - recommend patient be evaluated by Dr. Neal as an outpatient given report of increased discomfort recently - Tylenol, hydrocodone prn. K pad orderd (4) CAD (coronary artery disease): - continue home ASA, metoprolol, spironolactone (5) Elevated parathyroid hormone: - PTH last checked in 12/2020 at which time it was 135 - Vitamin D low in 12/2020 at 14 - Ca elevated to 10.8 on admission. - although it appears as though she has not been formally diagnosed, I suspect patient has hyperparathyroidism - check a phosphorus level - if low, patient should have a sestimibe scan - given associated low vitamin D, it is also possible hyperparathyroidism is secondary to her underlying kidney disease (6) Left groin pain: - differntial includes hip flexor muscle strain vs. L hip OA - Xrays ordered to assess for the latter - tylenol prn for discomfort. Topical voltaren gel is also an option (7) Low vitamin D level: - level was 14 in 12/4020 - recommend she start PO supplementation at 5,000 IU/daily (8) Leg length discrepancy: - history of - patient does not have a shoe lift: consider referral as outpatient to have one made (9) GERD (gastroesophageal reflux disease): - continue home famotidine DVT ppx: Heparin 5,000 units SQ q12 Dispo: Med/Surg Diet: Heart Healthy Code: DNR/DNI History of Present Illness Primary Care Provider: Sabina Lilly MD Mrs. Thompson is a 75 yo woman who presented to [facility] ED for progressive weakness over the past 7 days. She denies any inciting trigger or injury - but it has gotten to the point where she could no longer walk, even with the aid of her walker. She denies any preceding illness or cold symptoms. She does have a PMHx of lumbar spinal stenosis for which she follows with [facility] Pain Management. It sounds like her back pain has been more intense recently, as she is using her prn hydrocodone script nearly every 6 hours. She says she was evaluated by Dr. Shaw at [facility] who advised against a surgical intervention - he later sent her to somewhere in [place] for a second opinion, where the same recommendation was ultimately made. She also has a history of hyperparathyroidism - her next outpatient follow up visit is scheduled for May. She is supposed to be taking a vitamin D supplement (2,000 IU/daily) but when her first bottle ran out, she has not arranged to get a another (and thus has been without it for a period of time). She also reports a L groin pain - this just started in the last day or so. She thinks she pulled a muscle - it bothers her most when she changes positions. She does have a leg length discrepancy (R is shorter than L). Social Hx: She lives alone. In the ED, she was afebrile with a normal HR. Her CBC was normal. Blood cultures were drawn. Her UA showed no signs of infection. Her trop was undetectable. Her TSH was 2.8. Her creatinine was 1.62. Her electrolytes were WNL expect calcium, which was elevated to 10.8. Her CXR showed no signs of active disease. Head CT showed no acute bleeds, evidence of a remote lacunar infarct in the R basal ganglia, and extensive small vessel ischemic changes. She was given 1 liter of NSS. Allergies Allergy/AdvReac Type Severity Reaction Status Date / Time Sulfa (Sulfonamide Allergy Mild skin turns Verified 02/21/21 13:43 Antibiotics) red, itchy, throat swelling sulfamethoxazole Allergy Mild skin turns Verified 02/21/21 13:43 red trimethoprim Allergy Mild skin turns Verified 02/21/21 13:43 red atorvastatin Allergy Verified 02/21/21 13:43 grass pollen Allergy Verified 02/21/21 13:43 Home Medications Medication Instructions Recorded Confirmed Type furosemide [Lasix] 40 mg PO QAM #0 03/29/07 03/03/21 History cholecalciferol (vitamin D3) 2,000 unit PO QAM #0 08/04/11 03/03/21 History [Vitamin D3] nitroglycerin 0.4 mg sublingual 0.4 mg SL Q5M PRN #25 tab 05/04/19 03/03/21 History tablet allopurinol 300 mg tablet 300 mg PO QAM 06/29/19 03/03/21 History aspirin 81 mg tablet,delayed 81 mg PO QAM 08/03/19 03/03/21 History release hydrocodone 5 mg-acetaminophen 325 1 tab PO Q6H PRN #90 tab 02/05/21 03/03/21 Rx mg tablet metoprolol tartrate 50 mg tablet 50 mg PO BID #60 tab 03/01/21 03/03/21 Rx cilostazol 100 mg PO BID 03/03/21 03/03/21 History famotidine 40 mg PO HS 03/03/21 03/03/21 History spironolactone 50 mg PO QAM 03/03/21 03/03/21 History Past Med/Surg History Medical History (Updated 03/04/21 @ 18:34 by Chuck Eisenberg MD) CAD (coronary artery disease) Cardiac murmur Chronic kidney disease Congestive heart failure Dyslipidemia GERD (gastroesophageal reflux disease) Gout Hypertension Lumbar radiculopathy Lumbar spinal stenosis MALT (mucosa associated lymphoid tissue) Osteoarthritis Surgical History Amputated toe of left foot History of cardiac cath 1995 [facility] [place] - NO STENTS --> CABG History of carotid endarterectomy RT - 2016 - ULTRASOUND Q6M - LAST 12/2017 - NO ISSUES History of coronary artery bypass graft 1995 [facility] [place] - NO ISSUES SINCE - FOLLOW DR. Cezar CAZARES History of lumpectomy of right breast (~2018) History of shoulder surgery Hx of cholecystectomy S/P REED-BSO Family History Brother Myocardial infarction Cardiac disorder Hypertension Grandmother Uterine cancer Uterine leiomyoma Daughter Breast cancer Denies family history of Ovarian cancer Prostate cancer Colorectal cancer Social History Smoking Status: Former smoker Age Started Using Tobacco: 18; Age Quit Using Tobacco: 50; packs per day: 1; Second Hand Exposure: No; Hx Alcohol Use: Yes Alcohol type: wine and hard liquor Alcohol Intake Frequency: Monthly or Less Hx Substance Use: No Preferred Language: Ukrainian Communication Ability: Effective Visual Impairment: Limited Hearing Ability: Normal Room Service Manager Required: No Beliefs That Will Affect Care: None marital status: / Current Living Situation: Alone current occupational status: retired Other Information That Helps Us Care for You: No Feels Safe at Home: Yes Childhood Exposure to Second-Hand Smoke: Yes Dental Care, Regularly: Yes Physical Activity Frequency: Does not Exercise Seatbelt Use: always Sunscreen Use: Yes Assistive Devices: Denture - Upper, Denture - Lower and Walker Review of Systems Constitutional: + weakness; no fever, no chills and no sweats Ear, Nose, Mouth, Throat: no ear pain and no nasal congestion Respiratory: no cough Cardiovascular: no chest pain, no dyspnea and no syncope Gastrointestinal: no abdominal pain, no nausea, no vomiting and no diarrhea/loose stools Physical Exam Constitutional: WD/WN, vitals as above cooperative; no acute distress Eyes: + anicteric sclerae ENMT: external ear and nose normal, oropharynx normal Neck: normal visual inspection and trachea midline Respiratory: normal respiratory effort, lungs clear to auscultation Cardiovascular: Rate/Rhythm: regular rate and regular rhythm Heart Sounds: normal S1, normal S2 and + murmur (systolic ejection murmur ) Extremities: no pedal edema Gastrointestinal (Abdomen): normal bowel sounds, soft, nontender, no hepatosplenomegaly Skin: no rashes, warm and dry Neurologic: moves all extremities Strength is 5/5 with dorsiflexion and plantarflexion of ankles; 5/5 with knee abduction and adduction; 5/5 with hip flexion - although this motion reproduces pain in the left groin Psychiatric: A+Ox3, euthymic affect Results & Data Results & Data ([facility]) Vital Signs (Past 12 Hours) Vital Signs Temp Pulse Pulse Resp BP BP Pulse Ox 03/03/21 21:00 70 18 199/98 H 97 03/03/21 19:27 94 03/03/21 19:19 37.1 C 75 18 182/95 H 94 Supervising Physician Co-Signing Physician Notes Attending addendum: I have physically seen this patient, have supervised the medical residents activities, and agree with the H&P unless as otherwise noted. Assessment and Plan: Generalized weakness- Etiology unclear at this time Suspect general deconditioning versus hypercalcemia associated with decreased vitamin D and hyperparathyroidism, dehydration causing acute kidney injury, and others Acute kidney injury on CKD stage III- Creatinine 1.60 upon admission, with baseline 1.2-1.3 Gentle IV fluids Recheck laboratories in a.m. Lumbar spinal stenosis- Also pain management, Dr. Neal, receiving periodic injections Suspect part of her progressive weakness associated with relatively decreased ability to have physical activity and leading to generalized deconditioning Consult PT/OT Increase vitamin D supplementation from 2000 to 5000 international units daily She will need follow-up laboratories in several months. Remaining orders and notations as noted Resident Activity Tracking Resident Involvement: Resident Care Provided Care Provided: Adult Hospital Medicine
[2021-03-04] MEDS ORDERED: DICLOFENAC SOD 1% GEL 100 GM TUBE EXT PRN (00:16)
[2021-03-04] MEDS ORDERED: ACETAMINOPHEN 325 MG TAB PO PRN (00:16)
[2021-03-04] MEDS ORDERED: POLYETHYLENE (MIRALAX) 17 GM PACK PO PRN (00:16)
[2021-03-04] MEDS ORDERED: SODIUM CHLORIDE 0.9% 1000ML 1,000 ML IV SCH (00:16)
[2021-03-04] MEDS ORDERED: ONDANSETRON INJ 2 MG/ML 2 ML VIAL IV PRN (00:16)
[2021-03-04] MEDS ORDERED: METOPROLOL TARTRATE 25 MG TAB PO STA (00:28)
--- NOTE | 2021-03-04 06:51 | Hospitalist Progress Note ---
Date of Service March 04, 2021 Assessment & Plan (1) Left thigh pain: Ally Thompson is a 75 y/o F w/ PMHx of lumbar spinal stenosis and leg length discrepancy who presents with 1 week of L medial thigh pain and ?weakness. Left medial thigh pain: - Most likely from muscle strain vs lumbosacral radiculopathy - Other etiologies considered: no apparent sign of infection. Hgb is normal, patient not anemic. Considered deconditioning vs. sedation effects from increased narcotic use vs. hypercalcemia due to hyperparathyroidism. However, all three of these appear mild and less likely the main cause of the patient's symptoms. - denies groin pain on evaluation 03/04 - endorsed weakness at admission, but denies weakness on 03/[address] no acute changes - xr hip/pelvis osteopenia and degenerative changes; no acute findings - lack of risk factors for myopathy. check CK in AM - tylenol, hydrocodone and a K pad for back pain. She likely needs to be re- evaluated by her pain management provider for a repeat injection - PT/OT ordered. recommends inpatient rehab. will trial rehab and defer emergent MRI because of lack of red flag symptoms. consider outpatient MRI of back if symptoms continue - submitted request to obtain outside records (MRI and surg eval note from [facility]) Lumbar spinal stenosis: - follows with [place] [facility]- last injection was with Dr. Neal on 09/26/2020 - recommend patient be evaluated by Dr. Neal as an outpatient given report of increased discomfort recently Leg length discrepancy, chronic - per prior imaging, L leg is 1 cm longer than R - patient does not have a shoe lift: consider referral as outpatient to have one made - may be contributory to MSK etiology of thigh pain, but timing of onset is less consistent - PT/OT eval Elevated parathyroid hormone: - PTH last checked in 12/2020 at which time it was 135 - likely 2/2 vit D deficiency - Vitamin D low in 12/2020. address as outpatient - Ca elevated to 10.8 on admission, resolved - phos wnl at 2.8 Low vitamin D level: - level was 14 in 12/4020 - replete w/ 2000IU daily - f/u as outpatient Elevated blood pressures - noted. systolic 190s this AM. some component may be secondary to pain - most recent BP 172/79, will not treat w/ PRN antihypertensive given lack of symptoms. Elevated serum creatinine, resolved: - ELDON on CKD3 - daily BMP CAD (coronary artery disease): - continue home ASA, metoprolol, spironolactone Gastroesophageal reflux disease: - continue home famotidine DVT ppx: Heparin 5,000 units SQ q12 Dispo: Med/Surg. likely inpatient rehab Diet: Heart Healthy. No IVF. Code: DNR/DNI (2) Weakness: (3) Elevated serum creatinine: (4) Lumbar spinal stenosis: (5) CAD (coronary artery disease): (6) Elevated parathyroid hormone: (7) Left groin pain: (8) Low vitamin D level: (9) Leg length discrepancy: (10) GERD (gastroesophageal reflux disease): Admission and Anticipated Discharge Date Admission Date: March 03, 2021 Supervising Physician Co-Signing Physician Notes Resident Physician Supervision Note: I independently interviewed and examined the patient and verified the lance history and physical, reviewed labs and image studies and agree with resident Dr. Eisenberg findings and care plan. Subjective Patient states the weakness/pain is at L Medial thigh and that it is pain moreso than weakness. Denies inciting event, but states that she might have "pulled a muscle" during sleep without knowing. No numbness/tingling. No groin involvement. No incontinence. Urination is normal. Currently, no pain. Pain is brought on by movement. She has chronic low back pain and states she has had MRI and surgical eval in past and was told had sciatic nerve compression. Patient lives at home. Denies use of statin, steroids or thyroid medications. She was told needed thyroid eval by pcp. Denies tick bites/exposure. Review of Systems Review of Systems: Constitutional: Denies fever, chills, weight change Eyes: Denies blurry vision, Cardiovascular: Denies chest pain Respiratory: Denies shortness of breath Gastrointestinal: Denies abdominal pain, nausea, vomiting, constipation, diarrhea Genitourinary: Denies urinary symptoms including dysuria Musculoskeletal: Denies joint aches/pain Neurological: Denies headache, numbness, tingling Physical Exam Physical Exam: General: Grossly A&O. NAD. Cooperative. HEENT: Atraumatic, normocephalic. Pulm: CTAB. -wheezes, -rales, -rhonchi. No respiratory distress. Cardiac: RRR, -mrg. Radial pulses intact and symmetrical. No LE edema. Abdominal: Nontender, nondistended, soft. Neuro: + L straight leg raise. Strength and sensation of lower extremity intact. Able to transfer w/ assistance of walker and nurse from bed to wheelchair. Results & Data Results & Data ([facility]) Vital Signs (Past 12 Hours) Vital Signs Temp Pulse Pulse Pulse Resp BP BP 03/04/21 03:55 69 17 173/75 H 03/04/21 00:27 71 187/85 H 03/04/21 00:15 36.7 C 71 17 196/108 H 03/03/21 23:41 70 21 118/94 03/03/21 22:46 75 20 219/98 H 03/03/21 21:00 70 18 199/98 H 03/03/21 19:27 03/03/21 19:19 37.1 C 75 18 182/95 H Pulse Ox 03/04/21 03:55 96 03/04/21 00:27 03/04/21 00:15 95 03/03/21 23:41 97 03/03/21 22:46 91 03/03/21 21:00 97 03/03/21 19:27 94 03/03/21 19:19 94 Laboratory Results TSH 2.88 (wnl) on 03/03/21 Resident Activity Tracking Resident Involvement: Resident Care Provided Care Provided: Adult Hospital Medicine
--- NOTE | 2021-03-04 06:54 | XRay Report ---
XR chest 1V portable CLINICAL HISTORY: weakness COMPARISON STUDY: 08/04/2011 FINDINGS: There are postsurgical changes of midline sternotomy. The heart is borderline enlarged. The re is aortic tortuosity/ectasia. There is no focal pulmonary consolidation. There is a linear area of scar/atelectasis within the left midlung zone. There are no pleural effusions.[ IMPRESSION: No active disease in the chest. ACT 112: Negative or not required by law. Electronically signed by: Jonas Soriano M.D. 03/04/2021 6:53 AM
--- NOTE | 2021-03-04 07:09 | CT Scan Report ---
CT OF THE HEAD WITHOUT CONTRAST CLINICAL HISTORY: weakness COMPARISON STUDY: PET/CT April 19, 2018. CT DOSE: 537.48 mGy.cm TECHNIQUE: Helical axial images of the head were obtained without IV contrast. Automated exposure con trol was utilized for the study. A dose lowering technique was utilized adhering to the principles o f ALARA. FINDINGS: No acute intracranial hemorrhage, midline shift or mass effect is present. The ventricular system is unremarkable. White matter hypodensity suggests small vessel disease. There are suspected o ld lacunar infarcts within the bilateral basal ganglia. The basal cisterns are patent. No extra-axial collections are present. There are no findings to suggest acute dural sinus thrombosis or acute terr itorial infarct. No significant calvarial abnormalities are present. Visualized portions of the sinus es and mastoid air cells are clear. IMPRESSION: 1. No acute intracranial findings. 2. White matter hypodensity suggestive of small vessel disease. 3. Suspected old lacunar infarcts within the bilateral basal ganglia. ACT 112: Negative or not required by law. Electronically signed by: Irvin Liriano M.D. 03/04/2021 7:08 AM
[2021-03-04] MEDS: HYDROCODONE/ACETAMOPHEN 5/325MG TAB PO PRN ×3 (07:16→21:05)
[2021-03-04 07:27] LABS: BUN Creatinine Ratio 21.4 (10-20); Calcium 9.5 mg/dl (8.5-10.1); Creatinine Clr Calc Pharmacy 40.7 ml/min; Est GFR (African American) 55.4 ml/min; Est GFR (Non-African American) 47.8 ml/min; Potassium 3.5 mmol/L (3.5-5.1)
[2021-03-04 07:28] LABS: Phosphorus 2.8 mg/dl (2.5-4.9)
[2021-03-04] MEDS: FUROSEMIDE 40 MG TAB PO SCH (08:30)
[2021-03-04] MEDS: SPIRONOLACTONE 25 MG TAB PO SCH (08:30)
[2021-03-04] MEDS: METOPROLOL TARTRATE 50 MG TAB PO SCH ×2 (08:30→21:02)
[2021-03-04] MEDS: cilostazoL 100 MG TAB PO SCH ×2 (08:31→21:01)
[2021-03-04] MEDS: allopurinoL 300 MG TAB PO SCH (08:31)
[2021-03-04] MEDS: ASPIRIN 81 MG ECTAB PO SCH (08:31)
[2021-03-04] MEDS: HEPARIN SOD 5,000 UNIT/0.5 ML VIAL SQ SCH ×2 (08:31→21:02)
[2021-03-04] MEDS ORDERED: CHOLECALCIFEROL 1,000 UNITS 25 MCG TAB PO SCH (09:00)
--- NOTE | 2021-03-04 09:32 | XRay Report ---
SINGLE VIEW PELVIS; 2 VIEWS LEFT HIP CLINICAL HISTORY: Left groin pain. FINDINGS: An AP view of the pelvis with AP and frog-leg views of the left hip are correlated with pel nicole CT dated 08/13/2017. The skeletal structures are osteopenic. No fracture is seen involving the hip s or bony pelvis. Moderate degenerative joint space narrowing and arthritic change is present in the hips. Sclerotic change is noted in the sacroiliac joints and pubic symphysis. Lumbosacral spondylosis is partially imaged. The overlying soft tissues are normal as visualized. There is advanced atherosc lerotic calcification of the femoral arteries. Phleboliths are noted in the pelvis. There is no evide nce of bowel obstruction. IMPRESSION: Osteopenia and degenerative change as above with no acute bony abnormality identified. Electronically signed by: Johnny Willis M.D. 03/04/2021 9:31 AM
[2021-03-04] MEDS: FAMOTIDINE 40 MG TABLET PO SCH (21:01)
--- NOTE | 2021-03-05 01:11 | Billing Data ---
Date of Service March 05, 2021 Coding Level of Care Code 19806 OBS Care - Level 3
[2021-03-05 06:29] LABS: Basophils # (auto) 0.03 K/uL (0-0.2); Basophils % (auto) 0.4 %; Eosinophils # (auto) 0.21 K/uL (0-0.5); Eosinophils % (auto) 2.7 %; Hematocrit (blood only) 42.3 % (37-47); Hemoglobin 14.5 g/dL (12.0-16.0); Immature Granulocytes # (auto) 0.01 K/uL (0.00-0.02); Immature Granulocytes % (auto) 0.1 %; Lymphocytes # (auto) 1.96 K/uL (1.2-3.4); Lymphocytes % (auto) 25.6 %; Mean Corpuscular Hemoglobin 33.3 pg (25-34); Mean Corpuscular Hgb Conc 34.3 g/dL (32-36); Monocytes # (auto) 0.89 K/uL (0.11-0.59); Monocytes % (auto) 11.6 %; Neutrophils # (auto) 4.57 K/uL (1.4-6.5); Neutrophils % (auto) 59.6 %; Platelet Count 244 K/uL (130-400); RDW Coefficient of Variation 13.5 % (11.5-14.5); RDW Standard Deviation 48.1 fL (36.4-46.3); Red Blood Count 4.36 M/uL (4.2-5.4); White Blood Count 7.67 K/uL (4.8-10.8)
[2021-03-05 06:46] LABS: BUN Creatinine Ratio 26.8 (10-20); Calcium 9.9 mg/dl (8.5-10.1); Creatinine Clr Calc Pharmacy 33.8 ml/min; Est GFR (African American) 44.3 ml/min; Est GFR (Non-African American) 38.2 ml/min; Potassium 3.8 mmol/L (3.5-5.1)
--- NOTE | 2021-03-05 07:41 | Hospitalist Progress Note ---
Date of Service March 05, 2021 Assessment & Plan (1) Left thigh pain: Ally Thompson is a 75 y/o F w/ PMHx of lumbar spinal stenosis and leg length discrepancy who presents with 1 week of L medial thigh pain and ?weakness. Stable. Left medial thigh pain: - Most likely from muscle strain vs lumbosacral radiculopathy - xr hip/pelvis osteopenia and degenerative changes; no acute findings - tylenol, hydrocodone and a K pad for back pain. She likely needs to be re-eval uated by her pain management provider for a repeat injection - PT/OT ordered. recommends inpatient rehab. will trial rehab and defer emergent MRI because of lack of red flag symptoms. consider outpatient MRI of back if symptoms continue - submitted request to obtain outside records (MRI and surg eval note from [facility]) Lumbar spinal stenosis: - follows with [place] [facility]- last injection was with Dr. Neal on 09/26/2020 - recommend patient be evaluated by Dr. Neal as an outpatient given report of increased discomfort recently Leg length discrepancy, chronic - per prior imaging, L leg is 1 cm longer than R - patient does not have a shoe lift: consider referral as outpatient to have one made - may be contributory to MSK etiology of thigh pain, but timing of onset is less consistent - PT/OT Elevated blood pressures - noted. mostly 160s-190s systolic. some component may be secondary to pain - will not treat w/ PRN antihypertensive given lack of symptoms chronic kidney disease - ELDON (resolved) on CKD3 - 03/05 Cr (1.36) and egfr (38.2) ~baseline - daily BMP congestive heart failure, per chart history - no echo in our system. patient likely has outside records - 03/02-03/04 daily weights stable at 82.6kg - cumulative Is/Os 2L in, 500mL out (incomplete recording) - no SOB at this time and is saturating well on room air. will follow clinically. Elevated parathyroid hormone: - PTH last checked in 12/2020 at which time it was 135 - likely 2/2 vit D deficiency - Vitamin D low in 12/2020. address as outpatient - Ca elevated to 10.8 on admission, resolved - phos wnl at 2.8 Low vitamin D level: - level was 14 in 12/4020 - replete w/ 2000IU daily - f/u as outpatient CAD (coronary artery disease): - continue home ASA, metoprolol, spironolactone Gastroesophageal reflux disease: - continue home famotidine DVT ppx: Heparin 5,000 units SQ q12 Dispo: Med/Surg. dispo to [facility] on 03/06. initially considered home w/ home health, but upon further discussion w/ family, inpatient rehab felt to be more appropriate Diet: Heart Healthy. No IVF. Code: DNR/DNI (2) Weakness: (3) Elevated serum creatinine: (4) Lumbar spinal stenosis: (5) CAD (coronary artery disease): (6) Elevated parathyroid hormone: (7) Left groin pain: (8) Low vitamin D level: (9) Leg length discrepancy: (10) GERD (gastroesophageal reflux disease): Admission and Anticipated Discharge Date Admission Date: March 03, 2021 Supervising Physician Co-Signing Physician Notes Resident Physician Supervision Note: I independently interviewed and examined the patient and verified the lance history and physical, reviewed labs and image studies and agree with resident Dr. Eisenberg findings and care plan. Subjective Pain level w/ movement is 5/10, about same as yesterday. Pain feels muscular as opposed to bone-related. Back pain is 4/10, but has not yet received her usual opioid meds. Patient states her back MRI was not performed at [facility], but does not remember name of location. Review of Systems Review of Systems: Constitutional: Denies fever, chills, weight change Eyes: Denies blurry vision, vision changes Cardiovascular: Denies chest pain, palpitations Respiratory: Denies shortness of breath Gastrointestinal: Denies abdominal pain, nausea, vomiting, constipation, diarrhea Genitourinary: Denies urinary symptoms including dysuria Musculoskeletal: Denies weakness Neurological: Denies headache, numbness, tingling, focal weakness Physical Exam Physical Exam: General: Grossly A&O. NAD. Cooperative. Sitting in chair. HEENT: Atraumatic, normocephalic. Pulm: CTAB. -wheezes, -rales, -rhonchi. No respiratory distress. Cardiac: RRR, -rg. 2/6 holostysolic murmur at aortic region Radial pulses intact and symmetrical. Abdominal: Nontender, nondistended, soft. Neuro: Neg SLR. Pain at L thigh/groin w/ leg raise, but no radiation/shooting down leg. Normal strength and sensation of LE. 2+ patellar reflexes. Results & Data Results & Data ([facility]) Vital Signs (Past 12 Hours) Vital Signs Temp Pulse Resp BP Pulse Ox 03/04/21 23:04 37.0 C 76 18 169/81 H 94 Resident Activity Tracking Resident Involvement: Resident Care Provided Care Provided: Adult Hospital Medicine
[2021-03-05] MEDS: HYDROCODONE/ACETAMOPHEN 5/325MG TAB PO PRN ×3 (08:28→20:32)
[2021-03-05] MEDS: HEPARIN SOD 5,000 UNIT/0.5 ML VIAL SQ SCH ×2 (08:29→20:31)
[2021-03-05] MEDS: SPIRONOLACTONE 25 MG TAB PO SCH (08:30)
[2021-03-05] MEDS: CHOLECALCIFEROL 1,000 UNITS 25 MCG TAB PO SCH (08:30)
[2021-03-05] MEDS: ASPIRIN 81 MG ECTAB PO SCH (08:30)
[2021-03-05] MEDS: FUROSEMIDE 40 MG TAB PO SCH (08:30)
[2021-03-05] MEDS: allopurinoL 300 MG TAB PO SCH (08:30)
[2021-03-05] MEDS: METOPROLOL TARTRATE 50 MG TAB PO SCH ×2 (08:30→20:31)
[2021-03-05] MEDS: cilostazoL 100 MG TAB PO SCH ×2 (08:30→20:32)
--- NOTE | 2021-03-05 11:17 | Electrocardiogram Report ---
Test Reason : Blood Pressure : / mmHG Vent. Rate : 070 BPM Atrial Rate : 070 BPM P-R Int : 196 ms QRS Dur : 128 ms QT Int : 416 ms P-R-T Axes : 068 -52 011 degrees QTc Int : 449 ms Normal sinus rhythm Right bundle branch block Left anterior fascicular block Bifascicular block Possible Lateral infarct , age undetermined Abnormal ECG No previous ECGs available Confirmed by Surya Solano ([id number]) on 03/05/2021 11:17:16 AM Referred By: REFERRED SELF Confirmed By:Surya Solano
[2021-03-05] MEDS: FAMOTIDINE 40 MG TABLET PO SCH (20:31)
[2021-03-06 06:24] LABS: Basophils # (auto) 0.04 K/uL (0-0.2); Basophils % (auto) 0.6 %; Eosinophils % (auto) 4.5 %; Hematocrit (blood only) 36.3 % (37-47); Hemoglobin 12.5 g/dL (12.0-16.0); Immature Granulocytes # (auto) 0.02 K/uL (0.00-0.02); Immature Granulocytes % (auto) 0.3 %; Lymphocytes # (auto) 1.49 K/uL (1.2-3.4); Lymphocytes % (auto) 22.3 %; Mean Corpuscular Hemoglobin 32.9 pg (25-34); Mean Corpuscular Hgb Conc 34.4 g/dL (32-36); Mean Corpuscular Volume 95.5 fL (80-100); Mean Platelet Volume 12.1 fL (7.4-10.4); Monocytes # (auto) 1.01 K/uL (0.11-0.59); Monocytes % (auto) 15.1 %; Neutrophils # (auto) 3.83 K/uL (1.4-6.5); Neutrophils % (auto) 57.2 %; Platelet Count 241 K/uL (130-400); RDW Coefficient of Variation 13.4 % (11.5-14.5); RDW Standard Deviation 46.7 fL (36.4-46.3); White Blood Count 6.69 K/uL (4.8-10.8)
[2021-03-06 06:41] LABS: BUN Creatinine Ratio 26.5 (10-20); Calcium 9.9 mg/dl (8.5-10.1); Creatinine Clr Calc Pharmacy 26.6 ml/min; Est GFR (African American) 33.1 ml/min; Est GFR (Non-African American) 28.6 ml/min; Potassium 3.7 mmol/L (3.5-5.1)
--- NOTE | 2021-03-06 09:34 | Hospitalist Progress Note ---
Date of Service March 06, 2021 Assessment & Plan (1) Left thigh pain: Ally Thompson is a 75 y/o F w/ PMHx of lumbar spinal stenosis and leg length discrepancy who presents with 1 week of L medial thigh pain and ?weakness. Stable. Left medial thigh pain: - Most likely from muscle strain vs lumbosacral radiculopathy - xr hip/pelvis osteopenia and degenerative changes; no acute findings - tylenol, hydrocodone and a K pad for back pain. She likely needs to be re-eval uated by her pain management provider for a repeat injection - PT/OT ordered. recommends inpatient rehab. will trial rehab and defer emergent MRI because of lack of red flag symptoms. consider outpatient MRI of back if symptoms continue - submitted request to obtain outside records (MRI and surg eval note from [facility]) Lumbar spinal stenosis: - follows with [place] [facility]- last injection was with Dr. Neal on 09/26/2020 - recommend patient be evaluated by Dr. Neal as an outpatient given report of increased discomfort recently Leg length discrepancy, chronic - per prior imaging, L leg is 1 cm longer than R - patient does not have a shoe lift: consider referral as outpatient to have one made - may be contributory to MSK etiology of thigh pain, but timing of onset is less consistent - PT/OT Elevated blood pressures - noted. mostly 160s-190s systolic. some component may be secondary to pain - will not treat w/ PRN antihypertensive given lack of symptoms chronic kidney disease - ELDON (resolved) on CKD3 - 03/05 Cr (1.36) and egfr (38.2) ~baseline - daily BMP congestive heart failure, per chart history - no echo in our system. patient likely has outside records - 03/02-03/04 daily weights stable at 82.6kg - cumulative Is/Os 2L in, 500mL out (incomplete recording) - no SOB at this time and is saturating well on room air. will follow clinically. Elevated parathyroid hormone: - PTH last checked in 12/2020 at which time it was 135 - likely 2/2 vit D deficiency - Vitamin D low in 12/2020. address as outpatient - Ca elevated to 10.8 on admission, resolved - phos wnl at 2.8 Low vitamin D level: - level was 14 in 12/4020 - replete w/ 2000IU daily - f/u as outpatient CAD (coronary artery disease): - continue home ASA, metoprolol, spironolactone Gastroesophageal reflux disease: - continue home famotidine DVT ppx: Heparin 5,000 units SQ q12 Dispo: Med/Surg. dispo to [facility] on 03/06. initially considered home w/ home health, but upon further discussion w/ family, inpatient rehab felt to be more appropriate Diet: Heart Healthy. No IVF. Code: DNR/DNI (2) Weakness: Mrs. Thompson is a 75 yo woman with a PMHx of lumbar spinal stenosis leg length discrepancy who presents with L medial thigh pain. - Etiology uncertain: no apparent sign of infection. Hgb is normal, patient not anemic. Suspect this is secondary to deconditioning vs. sedation effects from increased narcotic use vs. hypercalcemia due to hyperparathyroidism. lower suspicion myopathy. can check ck - Although patient had an elevated PTH level of 135 in 12/2020, along with elevated serum calcium level and low vitamin D level, it does not appear as though she has been completely worked up or diagnosed with hyperparathyroidism. I have ordered a phosphorus level. If low, patient should have a sestimibe scan. - I will order tylenol, hydrocodone and a K pad for her back pain. She likely needs to be re-evaluated by her pain management provider for a repeat injection - PT/OT ordered (2) Elevated serum creatinine, resolved - Cr 1.62 on admission (baseline 1.2-1/) - hx of underlying stage 3 CKD - gentle IV hydration - avoid renotoxic medications - repeat BMP in AM (3) Lumbar spinal stenosis: - follows with [place] [facility]- last injection was with Dr. Neal on 09/26/2020 - recommend patient be evaluated by Dr. Neal as an outpatient given report of increased discomfort recently - Tylenol, hydrocodone prn. K pad orderd (4) CAD (coronary artery disease): - continue home ASA, metoprolol, spironolactone (5) Elevated parathyroid hormone. f/u as outpatient - PTH last checked in 12/2020 at which time it was 135 - Vitamin D low in 12/2020 at 1- address as outpatient. replete vit D 2000 daily. - Ca elevated to 10.8 on admission. - although it appears as though she has not been formally diagnosed, I suspect patient has hyperparathyroidism - check a phosphorus level - if low, patient should have a sestimibe scan - given associated low vitamin D, it is also possible hyperparathyroidism is secondary to her underlying kidney disease (6) Left groin pain: - differntial includes hip flexor muscle strain vs. L hip OA - Xrays ordered to assess for the latter - tylenol prn for discomfort. Topical voltaren gel is also an option (7) Low vitamin D level: - level was 14 in 12/4020 - recommend she start PO supplementation at 5,000 IU/daily (8) Leg length discrepancy: - history of - patient does not have a shoe lift: consider referral as outpatient to have one made (9) GERD (gastroesophageal reflux disease): - continue home famotidine await pt/ot eval shoe lift? DVT ppx: Heparin 5,000 units SQ q12 Dispo: Med/Surg Diet: Heart Healthy Code: DNR/DNI (3) Elevated serum creatinine: - Cr 1.62 on admission (baseline 1.2-1) - hx of underlying stage 3 CKD - gentle IV hydration - avoid renotoxic medications - repeat BMP in AM (4) Lumbar spinal stenosis: - follows with [place] [facility]- last injection was with Dr. Neal on 09/26/2020 - recommend patient be evaluated by Dr. Neal as an outpatient given report of increased discomfort recently - Tylenol, hydrocodone prn. K pad orderd (5) CAD (coronary artery disease): - continue home ASA, metoprolol, spironolactone (6) Elevated parathyroid hormone: - PTH last checked in 12/2020 at which time it was 135 - Vitamin D low in 12/2020 at 14 - Ca elevated to 10.8 on admission. - although it appears as though she has not been formally diagnosed, I suspect patient has hyperparathyroidism - check a phosphorus level - if low, patient should have a sestimibe scan - given associated low vitamin D, it is also possible hyperparathyroidism is secondary to her underlying kidney disease (7) Left groin pain: - differntial includes hip flexor muscle strain vs. L hip OA - Xrays ordered to assess for the latter - tylenol prn for discomfort. Topical voltaren gel is also an option (8) Low vitamin D level: - level was 14 in 12/4020 - recommend she start PO supplementation at 5,000 IU/daily (9) Leg length discrepancy: - history of - patient does not have a shoe lift: consider referral as outpatient to have one made (10) GERD (gastroesophageal reflux disease): - continue home famotidine DVT ppx: Heparin 5,000 units SQ q12 Dispo: Med/Surg Diet: Heart Healthy Code: DNR/DNI Admission and Anticipated Discharge Date Admission Date: March 05, 2021 Review of Systems Review of Systems: Constitutional: Denies fever, chills, weight change Eyes: Denies blurry vision, vision changes ENT: Denies sore throat, sinus pain Cardiovascular: Denies chest pain, palpitations Respiratory: Denies shortness of breath Gastrointestinal: Denies abdominal pain, nausea, vomiting, constipation, diarrhea Genitourinary: Denies urinary symptoms including dysuria Musculoskeletal: + L thigh pain Neurological: Denies headache, numbness, tingling, focal weakness Physical Exam Physical Exam: General: Grossly A&O. NAD. Cooperative. HEENT: Atraumatic, normocephalic. E Pulm: CTAB. -wheezes, -rales, -rhonchi. No respiratory distress. Cardiac: RRR, -mrg. No LE edema. Abdominal: Nontender, nondistended, soft. Msk: ttp at L medial thigh. Pain w/ leg raise on L. Results & Data Results & Data ([facility]) Vital Signs (Past 12 Hours) Vital Signs Temp Pulse Pulse Resp BP BP Pulse Ox 03/06/21 07:29 142/84 H 03/06/21 07:19 36.5 C 79 20 198/98 H 97 03/06/21 00:00 03/05/21 21:54 36.5 C 80 16 156/69 H 93 Pulse Ox 03/06/21 07:29 03/06/21 07:19 03/06/21 00:00 96 03/05/21 21:54
[2021-03-06] MEDS: cilostazoL 100 MG TAB PO SCH (09:43)
[2021-03-06] MEDS: allopurinoL 300 MG TAB PO SCH (09:43)
[2021-03-06] MEDS: ASPIRIN 81 MG ECTAB PO SCH (09:43)
[2021-03-06] MEDS: METOPROLOL TARTRATE 50 MG TAB PO SCH (09:43)
[2021-03-06] MEDS: CHOLECALCIFEROL 1,000 UNITS 25 MCG TAB PO SCH (09:43)
[2021-03-06] MEDS: SPIRONOLACTONE 25 MG TAB PO SCH (09:44)
[2021-03-06] MEDS: HEPARIN SOD 5,000 UNIT/0.5 ML VIAL SQ SCH (09:44)
[2021-03-06] MEDS: FUROSEMIDE 40 MG TAB PO SCH (09:44)
[2021-03-06] MEDS: HYDROCODONE/ACETAMOPHEN 5/325MG TAB PO PRN (09:48)
--- NOTE | 2021-03-06 11:30 | Discharge Summary ---
Date of Service March 06, 2021 Admission HPI Per Admitting Provider Mrs. Thompson is a 75 yo woman who presented to [facility] ED for progressive weakness over the past 7 days. She denies any inciting trigger or injury - but it has gotten to the point where she could no longer walk, even with the aid of her walker. She denies any preceding illness or cold symptoms. She does have a PMHx of lumbar spinal stenosis for which she follows with [facility]. It sounds like her back pain has been more intense recently, as she is using her prn hydrocodone script nearly every 6 hours. She says she was evaluated by Dr. Shaw at [facility] who advised against a surgical intervention - he later sent her to somewhere in [place] for a second opinion, where the same recommendation was ultimately made. She also has a history of hyperparathyroidism - her next outpatient follow up visit is scheduled for May. She is supposed to be taking a vitamin D supplement (2,000 IU/daily) but when her first bottle ran out, she has not arranged to get a another (and thus has been without it for a period of time). She also reports a L groin pain - this just started in the last day or so. She thinks she pulled a muscle - it bothers her most when she changes positions. She does have a leg length discrepancy (R is shorter than L). Social Hx: She lives alone. In the ED, she was afebrile with a normal HR. Her CBC was normal. Blood cultures were drawn. Her UA showed no signs of infection. Her trop was undetectable. Her TSH was 2.8. Her creatinine was 1.62. Her electrolytes were WNL expect calcium, which was elevated to 10.8. Her CXR showed no signs of active disease. Head CT showed no acute bleeds, evidence of a remote lacunar infarct in the R basal ganglia, and extensive small vessel ischemic changes. She was given 1 liter of NSS. Admission Exam Per Admitting Provider Constitutional: WD/WN, vitals as above cooperative; no acute distress Eyes: + anicteric sclerae ENMT: external ear and nose normal, oropharynx normal Neck: normal visual inspection and trachea midline Respiratory: normal respiratory effort, lungs clear to auscultation Cardiovascular: Rate/Rhythm: regular rate and regular rhythm Heart Sounds: normal S1, normal S2 and + murmur (systolic ejection murmur ) Extremities: no pedal edema Gastrointestinal (Abdomen): normal bowel sounds, soft, nontender, no hepatosplenomegaly Skin: no rashes, warm and dry Neurologic: moves all extremities Strength is 5/5 with dorsiflexion and plantarflexion of ankles; 5/5 with knee abduction and adduction; 5/5 with hip flexion - although this motion reproduces pain in the left groin Psychiatric: A+Ox3, euthymic affect Principal Diagnosis left thigh pain and weakness Discharge Exam General: Grossly A&O. NAD. Cooperative. HEENT: Atraumatic, normocephalic. Pulm: CTAB. -wheezes, -rales, -rhonchi. No respiratory distress. Cardiac: RRR, -mrg. No LE edema. Abdominal: Nontender, nondistended, soft. Msk: TTP at L medial thigh. Pain w/ leg raise on L. Discharge Data Allergies Allergy/AdvReac Type Severity Reaction Status Date / Time Sulfa (Sulfonamide Allergy Mild skin turns Verified 02/21/21 13:43 Antibiotics) red, itchy, throat swelling sulfamethoxazole Allergy Mild skin turns Verified 02/21/21 13:43 red trimethoprim Allergy Mild skin turns Verified 02/21/21 13:43 red atorvastatin Allergy Verified 02/21/21 13:43 grass pollen Allergy Verified 02/21/21 13:43 Consultations 03/03/21 21:27 ED Decision to Admit Stat 03/04/21 11:59 Consult Health Information Management Routine Ordered Studies 03/03/21 CT head/brain wo con 1. No acute intracranial findings. 2. White matter hypodensity suggestive of small vessel disease. 3. Suspected old lacunar infarcts within the bilateral basal ganglia. 03/03/21 XR L hip FINDINGS: An AP view of the pelvis with AP and frog-leg views of the left hip are correlated with pelvic CT dated 08/13/2017. The skeletal structures are osteopenic. No fracture is seen involving the hips or bony pelvis. Moderate de generative joint space narrowing and arthritic change is present in the hips. Sclerotic change is noted in the sacroiliac joints and pubic symphysis. Lumbosacral spondylosis is partially imaged. The overlying soft tissues are normal as visualized. There is advanced atherosclerotic calcification of the femoral arteries. Phleboliths are noted in the pelvis. There is no evidence of bowel obstruction. IMPRESSION: Osteopenia and degenerative change as above with no acute bony abnormality identified. Hospital Course (1) Left thigh pain: Ally Thompson is a 75 y/o F w/ PMHx of lumbar spinal stenosis and leg length discrepancy who presented with 1 week of L medial thigh pain and ?weakness. Stable. Dispo is to [facility] because of deconditioning and decreased mobility from L thigh pain. follow up w/ PCP in 1 week Left medial thigh pain: - Most likely from muscle strain vs lumbosacral radiculopathy - xr hip/pelvis osteopenia and degenerative changes; no acute findings - tylenol, hydrocodone and a K pad for back pain. She likely needs to be re- evaluated by her pain management provider for a repeat injection - 03/03/21 blood cultures no growth (final result) - PT/OT ordered. recommends inpatient rehab. will trial rehab and defer emergent MRI because of lack of red flag symptoms. consider outpatient MRI of back if symptoms continue Lumbar spinal stenosis: - follows with [facility]- last injection was with Dr. Neal on 09/26/2020 - recommend patient be evaluated by Dr. Neal as an outpatient given report of increased discomfort recently Leg length discrepancy, chronic - per prior imaging, L leg is 1 cm longer than R - patient does not have a shoe lift: consider referral as outpatient to have one made - may be contributory to MSK etiology of thigh pain, but timing of onset is less consistent - PT/OT Hypertension with elevated BP readings - noted. mostly 160s-190s systolic. some component may be secondary to pain - during this admission, did not treat w/ IV PRN antihypertensive given lack of symptoms - continue home PO regimen chronic kidney disease - ELDON on CKD3 - 03/05 Cr (1.36) and egfr (38.2) ~baseline - 03/06 Cr 1.76 - check BMP in 1 week. encourage PO fluid intake Chronic congestive heart failure, per chart history - no echo in our system. patient likely has outside records - stable and w/o SOB during this admission - continue home PO lasix Elevated parathyroid hormone: - PTH last checked in 12/2020 at which time it was 135 - likely 2/2 vit D deficiency - Vitamin D low in 12/2020. address as outpatient - Ca elevated to 10.8 on admission, resolved - phos wnl at 2.8 Low vitamin D level: - level was 14 in 12/4020 - replete w/ 2000IU daily - f/u as outpatient CAD (coronary artery disease): - continue home ASA, metoprolol, spironolactone Gastroesophageal reflux disease: - continue home famotidine code status during this admission: DNR/DNI (2) Weakness: (3) Elevated serum creatinine: (4) Lumbar spinal stenosis: (5) CAD (coronary artery disease): (6) Elevated parathyroid hormone: (7) Left groin pain: (8) Low vitamin D level: (9) Leg length discrepancy: (10) GERD (gastroesophageal reflux disease): Total Time Total Time Spent Total Time Spent (In Minutes): See attending documentation. Discharge Plan Discharge Items Patient Disposition: Transfer Inpatient Rehab Fac Reason For Visit: weakness Discharge Diagnosis: left thigh pain Activity: Per Instructions section Non-emergency contact: Primary Care Provider Call non-emergency contact if: you have any medication questions Follow-up/Referrals: Sabina Lilly MD [Primary Care Provider] - Diet: Regular Addtl Attending Provider Instructions: Ally Thompson is a 75 y/o F w/ PMHx of lumbar spinal stenosis and leg length discrepancy who presented with 1 week of L medial thigh pain and ?weakness. Stable. Dispo is to [facility] because of deconditioning and decreased mobility from L thigh pain. follow up w/ PCP in 1 week Left medial thigh pain: - Most likely from muscle strain vs lumbosacral radiculopathy - xr hip/pelvis osteopenia and degenerative changes; no acute findings - tylenol, hydrocodone and a K pad for back pain. She likely needs to be re- evaluated by her pain management provider for a repeat injection - PT/OT ordered. recommends inpatient rehab. will trial rehab and defer emergent MRI because of lack of red flag symptoms. consider outpatient MRI of back if symptoms continue Lumbar spinal stenosis: - follows with [facility]- last injection was with Dr. Neal on 09/26/2020 - recommend patient be evaluated by Dr. Neal as an outpatient given report of increased discomfort recently Leg length discrepancy, chronic - per prior imaging, L leg is 1 cm longer than R - patient does not have a shoe lift: consider referral as outpatient to have one made - may be contributory to MSK etiology of thigh pain, but timing of onset is less consistent - PT/OT Elevated blood pressures, hypertension - noted. mostly 160s-190s systolic. some component may be secondary to pain - during this admission, did not treat w/ IV PRN antihypertensive given lack of symptoms - continue home PO regimen chronic kidney disease - ELDON on CKD3 - 03/05 Cr (1.36) and egfr (38.2) ~baseline - 03/06 Cr 1.76 - check BMP in 1 week. encourage PO fluid intake congestive heart failure, per chart history - no echo in our system. patient likely has outside records - stable and w/o SOB during this admission - continue home PO lasix Elevated parathyroid hormone: - PTH last checked in 12/2020 at which time it was 135 - likely 2/2 vit D deficiency - Vitamin D low in 12/2020. address as outpatient - Ca elevated to 10.8 on admission, resolved - phos wnl at 2.8 Low vitamin D level: - level was 14 in 12/4020 - replete w/ 1999IU daily - f/u as outpatient CAD (coronary artery disease): - continue home ASA, metoprolol, spironolactone Gastroesophageal reflux disease: - continue home famotidine DNR/DNI Pending Studies at Discharge: No Stand-Alone Forms: My [facility] [employer] Skilled Items Patient informed of condition?: Yes DNR: Yes Discharge Level of Care: Acute rehab Communicable Disease: No Discharge Prognosis: Stable Lines: None Urinary Catheter: No Medications and DC Order Prescriptions: Continued allopurinol 300 mg tablet 300 mg PO QAM RF: 0 furosemide [Lasix] 40 mg Tablet 40 mg PO QAM Qty: 0 RF: 0 cholecalciferol (vitamin D3) [Vitamin D3] 2,000 unit Capsule 2,000 unit PO QAM Qty: 0 RF: 0 hydrocodone-acetaminophen 5-325 mg tablet 1 tab PO Q6H PRN (Reason: Pain) Qty: 90 RF: 0 metoprolol tartrate 50 mg tablet 50 mg PO BID Qty: 60 RF: 11 aspirin 81 mg tablet,delayed release (DR/EC) 81 mg PO QAM RF: 0 nitroglycerin 0.4 mg tablet, sublingual 0.4 mg SL Q5M PRN (Reason: chest pain) Qty: 25 RF: 0 cilostazol 100 mg tablet 100 mg PO BID RF: 0 famotidine 40 mg tablet 40 mg PO HS RF: 0 spironolactone 50 mg tablet 50 mg PO QAM RF: 0 Discharge Orders: Discharge Order (Routine); Ordered 03/06/21 Ordered By: Chuck Eisenberg Admission Data Admit Date/Time: 03/05/21 09:20 Attending Provider: Libby Branch Admit Provider: Shell Cummings Primary Care Provider: Sabina Lilly Other Providers: Zachary Bell ; [facility] Other Interventions: Discharge Summary Assessment (RN) Last Done: 03/06/21 14:28 Supervising Physician Co-Signing Physician Notes Resident Physician Supervision Note: I independently interviewed and examined the patient and verified the lance his tory and physical, reviewed labs and image studies and agree with resident Dr. Eisenberg findings and care plan. Resident Activity Tracking Resident Involvement: Resident Care Provided Care Provided: Adult Hospital Medicine
== END 2021-03-06 15:36 | DRG 537 ==
LOC: 3N 19:05 → ED 19:05 → SUATTDRO 22:28 → 3N 23:55

== ENCOUNTER 2021-05-20 09:05 | Inpatient (IN) ==
[2021-05-20] MEDS ORDERED: ONDANSETRON INJ 2 MG/ML 2 ML VIAL IV STA (09:33)
--- NOTE | 2021-05-20 09:38 | Emergency Department Note ---
History of Present Illness General Chief Complaint: Abdominal Pain Stated Complaint: ABDOMINAL PAIN Time Seen by Provider: 05/20/21 09:24 History of Present Illness Provider Complaint: abdominal pain Onset (ago): 1 week(s) Pain Consistency: constant Location: RLQ Severity: moderate Maximum Pain Intensity: 8 Current Pain Intensity: 8 Quality: + stabbing, + aching, + sharp and + dull Relieved By: + nothing Exacerbated By: + nothing Associated Symptoms: + nausea and + vomiting; no diarrhea, no fever, no chills, no constipation, no dysuria, no hematemesis, no hematochezia, no melena, no hematuria, no anorexia, no syncope, no headache, no neck pain, no back pain, no chest pain, no weakness, no breathing difficulty and no numbness Related Data Patient Confirmed : No Home Medications Medication Instructions Recorded Confirmed Type furosemide 40 mg tablet (Lasix) 40 mg PO QAM #0 03/29/07 05/20/21 History cholecalciferol (vitamin D3) 50 6,000 unit PO QAM #0 08/04/11 05/20/21 History mcg (2,000 unit) capsule (Vitamin D3) nitroglycerin 0.4 mg sublingual 0.4 mg SL Q5M PRN #25 tab 05/04/19 05/20/21 History tablet allopurinol 300 mg tablet 300 mg PO QAM 06/29/19 05/20/21 History aspirin 81 mg tablet,delayed 81 mg PO QAM 08/03/19 05/20/21 History release cilostazol 100 mg tablet 100 mg PO BID 03/03/21 05/20/21 History famotidine 40 mg tablet 40 mg PO HS 03/03/21 05/20/21 History spironolactone 50 mg tablet 50 mg PO QAM 03/03/21 05/20/21 History diclofenac sodium 1 % topical gel 2 g TOPICAL QID PRN 03/22/21 05/20/21 History metoprolol tartrate 50 mg tablet 50 mg PO BID #60 tab 05/01/21 05/20/21 Rx acetaminophen 500 mg tablet 1,000 mg PO Q6H PRN 05/02/21 05/20/21 History (Tylenol Extra Strength) colchicine 0.6 mg tablet 0.6 mg PO QAM 05/02/21 05/20/21 History escitalopram oxalate 5 mg tablet 5 mg PO QAM 05/02/21 05/20/21 History warfarin 5 mg tablet See Rx Instructions PO DAILY tab 05/15/21 05/20/21 History Shower Chair #1 ea 05/16/21 Rx Allergies Allergy/AdvReac Type Severity Reaction Status Date / Time Sulfa (Sulfonamide Allergy Mild skin turns Verified 05/20/21 09:59 Antibiotics) red, itchy, throat swelling sulfamethoxazole Allergy Mild skin turns Verified 05/20/21 09:59 red trimethoprim Allergy Mild skin turns Verified 05/20/21 09:59 red atorvastatin Allergy Verified 05/20/21 09:59 grass pollen Allergy Verified 05/20/21 09:59 latex Allergy unsure ?? Verified 05/20/21 09:59 Past Med/Surg History Medical History ELDON (acute kidney injury) Asymptomatic hyperuricemia Bronchitis CAD (coronary artery disease) Cardiac murmur Chronic kidney disease Congestive heart failure Dyslipidemia Edema GERD (gastroesophageal reflux disease) Gout HTN, goal below 140/90 Hx of blood clots Hx of deep venous thrombosis Hyperglycemia Hypertension Kidney failure Lumbar radiculopathy Lumbar spinal stenosis Lymphoma MALT (mucosa associated lymphoid tissue) Metabolic syndrome Osteoarthritis Osteoporosis, senile Statin intolerance Surgical History Amputated toe of left foot History of cardiac cath 1995 [facility] [place] - NO STENTS --> CABG History of carotid endarterectomy RT - 2016 - ULTRASOUND Q6M - LAST 12/2017 - NO ISSUES History of coronary artery bypass graft 1995 [facility] [place] - NO ISSUES SINCE - FOLLOW DR. Cezar CAZARES History of lumpectomy of right breast (~2017) History of shoulder surgery Hx of cholecystectomy S/P REED-BSO Family History Brother Myocardial infarction Cardiac disorder Hypertension Heart disease Grandmother Uterine cancer Uterine leiomyoma Cancer Daughter Breast cancer Son Diabetes Denies family history of Ovarian cancer Prostate cancer Colorectal cancer Social History Smoking Status: Former smoker Age Started Using Tobacco: 18; Age Quit Using Tobacco: 50; packs per day: 1; Second Hand Exposure: No; Hx Alcohol Use: Yes Alcohol type: wine and hard liquor Alcohol Intake Frequency: Monthly or Less Alcohol Intake Frequency Comment: 10 of March only Hx Substance Use: No Preferred Language: Latvian Communication Ability: Effective Visual Impairment: Limited Hearing Ability: Normal Email Marketing Manager Required: No Beliefs That Will Affect Care: None marital status: / Current Living Situation: Alone current occupational status: retired Feels Safe at Home: Yes Childhood Exposure to Second-Hand Smoke: Yes caffeine: Yes (1 cup coffee daily) during the past year weight has: remained stable Dental Care, Regularly: Yes Physical Activity Frequency: Does not Exercise Seatbelt Use: always Sunscreen Use: Yes Gender Identity: Female Assistive Devices: Cane and Glasses Review of Systems A total of 10 systems reviewed and were otherwise negative Physical Exam Vital Signs: Vital Signs - 24 hr 05/20/21 09:09 05/20/21 09:14 05/20/21 09:30 Temperature 36.6 C Temperature Source Oral Pulse Rate 88 92 H 99 H Pulse Rate from Sp O2 Sensor 90 91 H Pulse Rhythm Regular Pulse Strength Normal Respiratory Rate 22 18 22 Respiratory Effort / Characteristics Non-Labored Sponta neous Respiratory Depth Normal Respiratory Patter n Regular Blood Pressure 156/79 H 156/79 H 152/84 H Blood Pressure Bella n 104 104 106 Blood Pressure Pos ition Sitting Pulse Oximetry 97 98 95 Oxygen Delivery Me thod Room Air Room Air Room Air Sepsis Recent Feve r Within 48 Hours No Sepsis New/Unexpla ined Change in Men richard Status No Sepsis Action Take n by Nursing No Action Required 05/20/21 10:00 05/20/21 10:05 05/20/21 10:30 Temperature Temperature Source Pulse Rate 90 94 H Pulse Rate from Sp O2 Sensor 90 92 H Pulse Rhythm Pulse Strength Respiratory Rate 18 16 Respiratory Effort / Characteristics Respiratory Depth Respiratory Patter n Blood Pressure 163/98 H 157/80 H Blood Pressure Bella n 119 105 Blood Pressure Pos ition Pulse Oximetry 97 97 95 Oxygen Delivery Me thod Room Air Room Air Room Air Sepsis Recent Feve r Within 48 Hours Sepsis New/Unexpla ined Change in Men richard Status Sepsis Action Take n by Nursing 05/20/21 11:00 05/20/21 11:30 05/20/21 12:01 Temperature Temperature Source Pulse Rate 92 H 99 H 102 H Pulse Rate from Sp O2 Sensor 89 97 H 101 H Pulse Rhythm Pulse Strength Respiratory Rate 16 20 18 Respiratory Effort / Characteristics Respiratory Depth Respiratory Patter n Blood Pressure 154/81 H 146/74 H 166/90 H Blood Pressure Bella n 105 98 115 Blood Pressure Pos ition Pulse Oximetry 95 95 95 Oxygen Delivery Me thod Room Air Room Air Room Air Sepsis Recent Feve r Within 48 Hours Sepsis New/Unexpla ined Change in Men richard Status Sepsis Action Take n by Nursing 05/20/21 13:06 05/20/21 13:30 05/20/21 14:00 Temperature Temperature Source Pulse Rate 94 H 101 H 101 H Pulse Rate from Sp O2 Sensor 102 H 101 H 101 H Pulse Rhythm Pulse Strength Respiratory Rate 20 18 18 Respiratory Effort / Characteristics Respiratory Depth Respiratory Patter n Blood Pressure 107/81 84/37 L 112/46 L Blood Pressure Bella n 89 52 68 Blood Pressure Pos ition Pulse Oximetry 95 93 94 Oxygen Delivery Me thod Room Air Room Air Room Air Sepsis Recent Feve r Within 48 Hours Sepsis New/Unexpla ined Change in Men richard Status Sepsis Action Take n by Nursing Physical Exam: Physical Exam GENERAL: She is oriented to person, place, and time. She appears well-developed and well-nourished. She does not appear distressed. HENT: Exam performed. -Head: Normocephalic and atraumatic. -Right Ear: External ear normal. No mastoid tenderness. -Left Ear: External ear normal. No mastoid tenderness. -Mouth/Throat: The oropharynx is clear and moist. No trismus in the jaw. No dental abscesses or uvula swelling. No oropharyngeal exudate or tonsillar abscesses. EYES: Conjunctivae and EOM are normal. Pupils are equal, round, and reactive to light. Right eye exhibits no discharge. Left eye exhibits no discharge. No scleral icterus. NECK: Normal range of motion. Neck supple. No JVD present. No spinous process tenderness present. No carotid bruit present. No rigidity. No tracheal deviation and normal range of motion present. No Brudzinski's sign and no Kernig's sign noted. CV: Normal rate, regular rhythm, normal heart sounds and intact distal pulses. There is no peripheral edema. Palpable radial pulses bue. PULM/CHEST: Effort normal and breath sounds normal. No respiratory distress. No stridor. She has no wheezes. She has no rales. -Chest Wall: She exhibits no tenderness. ABD: The abdomen is soft. There is distention and swelling over the right lower quadrant. Pain on palpation of the right lower quadrant. There is an abdominal wall wound in the left lower quadrant with no surrounding erythema or discharge and appears to be healing appropriately. MUSC/SKEL: Normal range of motion. There is no peripheral edema, tenderness or deformity. LYMPH: No cervical adenopathy. NEURO: She is alert and oriented to person, place, and time. She has normal strength. No cranial nerve deficit or sensory deficit. Coordination and gait n ormal. GCS eye subscore is 4. GCS verbal subscore is 5. GCS motor subscore is 6. Cerebellar tests wnl. SKIN: Skin is warm and dry. She is not diaphoretic. PSYCH: She has a normal mood and affect. Behavior is normal. Judgment and thought content normal. Course Course 923: The patient was evaluated in room A3. A complete history and physical exam was performed Cardiac monitoring: An order was placed for continuous cardiac monitoring. The monitor shows a rate of 90 with sinus rhythm. 1407: Vital signs stable. Labs within normal limits. CT shows a large hernia in the inferior anterior abdominal wall without obstruction or strangulation. There is a development of collection which could represent blood products per CT read. Interval development of a cluster in the hernia sac with a hypoattenuating center in the surrounding fat stranding which CT read by radiologist reports might represent a developing abscess. I did discuss the case with general surgery Kiel QUICK for Dr. Vásquez on site coordinator [facility] surgery a ssociate of Dr. Vogel patient's [facility] surgeon who states he will evaluate the patient. 1512: Vital signs stable. Patient was evaluate general surgery. They see no surgical intervention at this time but they do recommend inpatient observation. They are asking the patient be admitted to the medicine team and they will follow the patient. Antibiotics recommended by surgery. Nafisa ordered. Pat ient will be admitted to the [facility] hospitalist team Dr. Sánchez. Administered Medications Discontinued Medications Ondansetron HCl (Ondansetron Inj 2 Mg/Ml 2 Ml Vial) 4 mg IV NOW STA Stop: 05/20/21 09:34 Last Admin: 05/20/21 10:03 Dose: 4 mg Documented by: [id number] Medical Decision Making Laboratory Data Result diagrams: 05/20/21 09:49 05/20/21 09:49 Lab Results 05/20/21 05/20/21 05/20/21 Range/Units 09:49 09:49 09:49 WBC 11.97 H (4.8-10.8) K/uL RBC 3.03 L (4.2-5.4) M/uL Hgb 9.8 L (12.0-16.0) g/dL Hct 29.5 L (37-47) % MCV 97.4 (80-100) fL MCH 32.3 (25-34) pg MCHC 33.2 (32-36) g/dL RDW Std Deviation 53.2 H (36.4-46.3) fL RDW Coeff of Phylicia 15.0 H (11.5-14.5) % Plt Count 413 H (130-400) K/uL MPV 10.7 H (7.4-10.4) fL Immature Gran % (Auto) 0.3 % Neut % (Auto) 79.2 % Lymph % (Auto) 9.7 % Overton % (Auto) 10.6 % Eos % (Auto) 0.1 % Baso % (Auto) 0.1 % Neut # (Auto) 9.49 H (1.4-6.5) K/uL Lymph # (Auto) 1.16 L (1.2-3.4) K/uL Overton # (Auto) 1.27 H (0.11-0.59) K/uL Eos # (Auto) 0.01 (0-0.5) K/uL Baso # (Auto) 0.01 (0-0.2) K/uL Immature Gran # (Auto) 0.03 H (0.00-0.02) K/uL Sodium 133 L (136-145) mmol/L Potassium 4.0 (3.5-5.1) mmol/L Chloride 100 (98-107) mmol/L Carbon Dioxide 26 (21-32) mmol/L Anion Gap 7.0 (3-11) BUN 42 H (7-18) mg/dl Creatinine 1.88 H (0.6-1.2) mg/dl Est Cr Clr Drug Dosing 23.3 ml/min Est GFR ( Amer) 30.0 ml/min Est GFR (Non-Af Amer) 25.9 ml/min BUN/Creatinine Ratio 22.6 H (10-20) Glucose 93 (70-99) mg/dl Lactate 1.3 (0.4-2.0) mmol/L Calcium 9.9 (8.5-10.1) mg/dl Total Bilirubin 0.8 (0.2-1) mg/dl Direct Bilirubin 0.3 H (0-0.2) mg/dl AST 27 (15-37) U/L ALT 14 (12-78) U/L Alkaline Phosphatase 106 (45-117) U/L Total Protein 6.5 (6.4-8.2) gm/dl Albumin 2.5 L (3.4-5.0) gm/dl Lipase 77 (73-393) U/L Imaging Data Radiologist's Impression: Abdomen/Pelvis CT 05/20/21 10:34 CT SCAN OF THE ABDOMEN AND PELVIS WITHOUT CONTRAST CLINICAL HISTORY: rlq pain swelling hernia COMPARISON STUDY: May 02, 2021 TECHNIQUE: CT scan of the abdomen and pelvis was performed from the lung bases to the proximal femurs. Images are reviewed in the axial, sagittal, and coronal planes. IV contrast was not administered for this examination. A dose lowering technique was utilized adhering to the principles of ALARA. CT DOSE: 1001.66 mGy.cm FINDINGS: Lower chest: Mild atelectasis at dependent portions of bilateral lower lobes. There are few pneumocytes are seen within right and left lower lungs. Liver: The unenhanced liver is normal in size, contour, and attenuation. There is no intrahepatic biliary ductal dilatation. Gallbladder: Is not well seen, probably surgically absent. Stable punctate calculus is seen within common bile duct (3/109) Spleen: Is normal in size and attenuation. Splenic vessels calculi are again seen. Pancreas: Unremarkable. Adrenal glands: Nodularity of the right adrenal gland is seen. There is 1.7 cm left adrenal nodule with poorly defined borders is seen and measuring attenuation of 19 Hounsfield units, was seen on prior study; also there is additional stable 7 mm left adrenal nodule which is unchanged in size since August 13, 2017 exam. Please correlate above-mentioned findings with prior history of of adrenal nodules and clinical presentation of adrenal a bnormalities.. Kidneys: The unenhanced kidneys are normal in size without hydronephrosis. There is no contour deforming renal mass lesion. No renal calculi on the right. Punctate nonobstructive calculus is seen within left renal parenchyma. Bowel: Moderate hiatal hernia. Bowel loops are nondilated. Appendix is not seen. Diverticulosis of sigmoid colon is seen without evidence of diverticulitis. Redemonstration of the large hernia within inferior anterior abdominal wall with ostium measuring 6.7 cm, containing nondilated loops of small bowel. Interval development of heterogeneous collection at the peripheral l aspect of the hernia sac which might represent blood products as well as few clustered focal collection: largest is measured 2.7 cm and show hypoattenuating center concerning for developing abscess. Also fat stranding is seen within the hernia sac. Peritoneum: Intra-abdominal portion of the peritoneum, outside of the hernia sac shows no evidence of free fluid collection or gas. Vasculature: Abdominal aorta is normal in caliber, tortuous with extensive wall calcifications within its distal aspect and within iliac arteries. Adenopathy: None. Pelvic viscera: Urinary bladder is partially decompressed. Uterus is surgically absent. Skeletal structures: Osteopenia. Healing fracture of the right ischial bone. Extensive degenerative changes of the spine are again seen. Previously seen focal area of fat is stranding within left inferior abdominal wall is improving since prior. IMPRESSION: 1. Large hernia within inferior anterior abdominal wall containing nondilated loops of bowel without evidence of obstruction or strangulation. Interval development of collection at the peripheral aspect of the hernia sac which shows areas of increased and decreased attenuation which might represent blood products. Interval development of cluster collection within the hernia sac, largest is showing hypoattenuating center, and surrounding fat stranding which might represent developing abscess. Report will be sent to emergency Department. 2. Moderate hiatal hernia. 3. Diverticulosis of sigmoid colon without evidence of diverticulitis. 4. Atherosclerosis. 5. Left adrenal nodule. Please see discussion above. 6. The rest of findings as above. ACT 112: Negative or not required by law. The above report was generated using voice recognition software. It may contain grammatical, syntax or spelling errors. Electronically signed by: Maine Abad DO 05/20/2021 1:39 PM ECG Data Indication: abdominal pain Rate (beats per minute): 98 Rhythm: normal sinus Findings: no ST depression, no ST elevation or no prolonged QT Additional Comments: [place] QRS and QTc intervals are within normal limits. Bifascicular block present. No significant change from the EKG done on March 03, 2021. [facility] Narrative 0924: The patient was evaluated in room A3. A complete history and physical exam was performed Cardiac monitoring: An order was placed for continuous cardiac monitoring. The monitor shows a rate of 90 with sinus rhythm. 1407: Vital signs stable. Labs within normal limits. CT shows a large hernia in the inferior anterior abdominal wall without obstruction or strangulation. There is a development of collection which could represent blood products per CT read. Interval development of a cluster in the hernia sac with a hypoattenuating center in the surrounding fat stranding which CT read by radiologist reports might represent a developing abscess. I did discuss the case with general surgery Kiel QUICK for Dr. Vásquez on site coordinator [facility] surgery associate of Dr. Vogel patient's [facility] surgeon who states he will evaluate the patient. 1512: Vital signs stable. Patient was evaluate general surgery. They see no surgical intervention at this time but they do recommend inpatient observation. They are asking the patient be admitted to the medicine team and they will follow the patient. Antibiotics recommended by surgery. Nafisa ordered. Patient will be admitted to the [facility] hospitalist team Dr. Sánchez. Impression & Plan Hernia Discharge Plan Visit Data Chief Complaint: Abdominal Pain Stated Complaint: ABDOMINAL PAIN ED Provider: Marcelo Cabral Prescriptions Prescriptions: No Action allopurinol 300 mg tablet 300 mg PO QAM RF: 0 warfarin 5 mg tablet See Rx Instructions PO DAILY RF: 0 furosemide [Lasix] 40 mg Tablet 40 mg PO QAM Qty: 0 RF: 0 cholecalciferol (vitamin D3) [Vitamin D3] 2,000 unit Capsule 6,000 unit PO QAM Qty: 0 RF: 0 diclofenac sodium 1 % gel 2 g topical QID PRN (Reason: joint pain) RF: 0 (DME) Shower Chair Misc See Rx Instructions .Route Qty: 1 RF: 0 metoprolol tartrate 50 mg tablet 50 mg PO BID Qty: 60 RF: 11 aspirin 81 mg tablet,delayed release (DR/EC) 81 mg PO QAM RF: 0 nitroglycerin 0.4 mg tablet, sublingual 0.4 mg SL Q5M PRN (Reason: chest pain) Qty: 25 RF: 0 cilostazol 100 mg tablet 100 mg PO BID RF: 0 famotidine 40 mg tablet 40 mg PO HS RF: 0 spironolactone 50 mg tablet 50 mg PO QAM RF: 0 acetaminophen [Tylenol Extra Strength] 500 mg Tablet 1,000 mg PO Q6H PRN (Reason: Pain) RF: 0 colchicine 0.6 mg tablet 0.6 mg PO QAM RF: 0 escitalopram oxalate 5 mg tablet 5 mg PO QAM RF: 0
[2021-05-20 09:58] LABS: Basophils # (auto) 0.01 K/uL (0-0.2); Basophils % (auto) 0.1 %; Eosinophils # (auto) 0.01 K/uL (0-0.5); Eosinophils % (auto) 0.1 %; Hematocrit (blood only) 29.5 % (37-47); Hemoglobin 9.8 g/dL (12.0-16.0); Immature Granulocytes # (auto) 0.03 K/uL (0.00-0.02); Immature Granulocytes % (auto) 0.3 %; Lymphocytes # (auto) 1.16 K/uL (1.2-3.4); Lymphocytes % (auto) 9.7 %; Mean Corpuscular Hemoglobin 32.3 pg (25-34); Mean Corpuscular Hgb Conc 33.2 g/dL (32-36); Mean Corpuscular Volume 97.4 fL (80-100); Mean Platelet Volume 10.7 fL (7.4-10.4); Monocytes # (auto) 1.27 K/uL (0.11-0.59); Monocytes % (auto) 10.6 %; Neutrophils # (auto) 9.49 K/uL (1.4-6.5); Neutrophils % (auto) 79.2 %; Platelet Count 413 K/uL (130-400); RDW Standard Deviation 53.2 fL (36.4-46.3); Red Blood Count 3.03 M/uL (4.2-5.4); White Blood Count 11.97 K/uL (4.8-10.8)
[2021-05-20 10:16] LABS: Albumin Level 2.5 gm/dl (3.4-5.0); BUN Creatinine Ratio 22.6 (10-20); Calcium 9.9 mg/dl (8.5-10.1); Creatinine Clr Calc Pharmacy 23.3 ml/min; Est GFR (Non-African American) 25.9 ml/min
[2021-05-20 10:18] LABS: Bilirubin Direct 0.3 mg/dl (0-0.2); Bilirubin,Total 0.8 mg/dl (0.2-1); Total Protein 6.5 gm/dl (6.4-8.2)
--- NOTE | 2021-05-20 13:40 | CT Scan Report ---
CT SCAN OF THE ABDOMEN AND PELVIS WITHOUT CONTRAST CLINICAL HISTORY: rlq pain swelling hernia COMPARISON STUDY: May 02, 2021 TECHNIQUE: CT scan of the abdomen and pelvis was performed from the lung bases to the proximal femurs . Images are reviewed in the axial, sagittal, and coronal planes. IV contrast was not administered fo r this examination. A dose lowering technique was utilized adhering to the principles of ALARA. CT DOSE: 1001.66 mGy.cm FINDINGS: Lower chest: Mild atelectasis at dependent portions of bilateral lower lobes. There are few pneumocyt es are seen within right and left lower lungs. Liver: The unenhanced liver is normal in size, contour, and attenuation. There is no intrahepatic didi iary ductal dilatation. Gallbladder: Is not well seen, probably surgically absent. Stable punctate calculus is seen within co mmon bile duct (3/109) Spleen: Is normal in size and attenuation. Splenic vessels calculi are again seen. Pancreas: Unremarkable. Adrenal glands: Nodularity of the right adrenal gland is seen. There is 1.7 cm left adrenal nodule wi th poorly defined borders is seen and measuring attenuation of 19 Hounsfield units, was seen on prior study; also there is additional stable 7 mm left adrenal nodule which is unchanged in size since Aug exam. Please correlate above-mentioned findings with prior history of of adrenal nodule s and clinical presentation of adrenal abnormalities.. Kidneys: The unenhanced kidneys are normal in size without hydronephrosis. There is no contour deform ing renal mass lesion. No renal calculi on the right. Punctate nonobstructive calculus is seen within left renal parenchyma. Bowel: Moderate hiatal hernia. Bowel loops are nondilated. Appendix is not seen. Diverticulosis of si gmoid colon is seen without evidence of diverticulitis. Redemonstration of the large hernia within inferior anterior abdominal wall with ostium measuring 6.7 cm, containing nondilated loops of small bowel. Interval development of heterogeneous collection at the peripheral l aspect of the hernia sac which might represent blood products as well as few cluster ed focal collection: largest is measured 2.7 cm and show hypoattenuating center concerning for develo ping abscess. Also fat stranding is seen within the hernia sac. Peritoneum: Intra-abdominal portion of the peritoneum, outside of the hernia sac shows no evidence of free fluid collection or gas. Vasculature: Abdominal aorta is normal in caliber, tortuous with extensive wall calcifications within its distal aspect and within iliac arteries. Adenopathy: None. Pelvic viscera: Urinary bladder is partially decompressed. Uterus is surgically absent. Skeletal structures: Osteopenia. Healing fracture of the right ischial bone. Extensive degenerative c hanges of the spine are again seen. Previously seen focal area of fat is stranding within left inferior abdominal wall is improving since prior. IMPRESSION: 1. Large hernia within inferior anterior abdominal wall containing nondilated loops of bowel without evidence of obstruction or strangulation. Interval development of collection at the peripheral aspec t of the hernia sac which shows areas of increased and decreased attenuation which might represent bl ood products. Interval development of cluster collection within the hernia sac, largest is showing hy poattenuating center, and surrounding fat stranding which might represent developing abscess. Report will be sent to emergency Department. 2. Moderate hiatal hernia. 3. Diverticulosis of sigmoid colon without evidence of diverticulitis. 4. Atherosclerosis. 5. Left adrenal nodule. Please see discussion above. 6. The rest of findings as above. ACT 112: Negative or not required by law. The above report was generated using voice recognition software. It may contain grammatical, syntax o r spelling errors. Electronically signed by: Maine Abad DO 05/20/2021 1:39 PM
[2021-05-20] MEDS ORDERED: PIPERACILLIN/TAZOBACTAM 4.5 GM/120 ML BAG IV ONE (15:11)
--- NOTE | 2021-05-20 15:22 | Surgery Consultation ---
Date of Consultation May 20, 2021 Assessment & Plan (1) Incisional hernia: No obstructive changes related to hernia but appears she has bled into the hernia. INR is pending. Hgb down from 13.5 in April to 9.8 now. Will continue to trend H&H and start IV antibiotics given WBC 12. No indication for exploration or hernia repair at this time but will continue to follow. History of Present Illness History of Present Illness 75 y/o female with right lower abdominal pain that began on Thursday with some N/V. Was able to eat yogurt last night. Has been having normal bowel movements. Has large hernia, feels it may be slightly larger than normal. Was seen in surgery clinic on Thursday by Dr. Vogel for unrelated LLQ chronic wound from Lovenox injections. Most recent INR 1.3, she does not think she has been mixing up any of her pills. Allergies Allergy/AdvReac Type Severity Reaction Status Date / Time Sulfa (Sulfonamide Allergy Mild skin turns Verified 05/20/21 09:59 Antibiotics) red, itchy, throat swelling sulfamethoxazole Allergy Mild skin turns Verified 05/20/21 09:59 red trimethoprim Allergy Mild skin turns Verified 05/20/21 09:59 red atorvastatin Allergy Verified 05/20/21 09:59 grass pollen Allergy Verified 05/20/21 09:59 latex Allergy unsure ?? Verified 05/20/21 09:59 Home Medications Medication Instructions Recorded Confirmed Type furosemide 40 mg tablet (Lasix) 40 mg PO QAM #0 03/29/07 05/20/21 History cholecalciferol (vitamin D3) 50 6,000 unit PO QAM #0 08/04/11 05/20/21 History mcg (2,000 unit) capsule (Vitamin D3) nitroglycerin 0.4 mg sublingual 0.4 mg SL Q5M PRN #25 tab 05/04/19 05/20/21 History tablet allopurinol 300 mg tablet 300 mg PO QAM 06/29/19 05/20/21 History aspirin 81 mg tablet,delayed 81 mg PO QAM 08/03/19 05/20/21 History release cilostazol 100 mg tablet 100 mg PO BID 03/03/21 05/20/21 History famotidine 40 mg tablet 40 mg PO HS 03/03/21 05/20/21 History spironolactone 50 mg tablet 50 mg PO QAM 03/03/21 05/20/21 History diclofenac sodium 1 % topical gel 2 g TOPICAL QID PRN 03/22/21 05/20/21 History metoprolol tartrate 50 mg tablet 50 mg PO BID #60 tab 05/01/21 05/20/21 Rx acetaminophen 500 mg tablet 1,000 mg PO Q6H PRN 05/02/21 05/20/21 History (Tylenol Extra Strength) colchicine 0.6 mg tablet 0.6 mg PO QAM 05/02/21 05/20/21 History escitalopram oxalate 5 mg tablet 5 mg PO QAM 05/02/21 05/20/21 History warfarin 5 mg tablet See Rx Instructions PO DAILY tab 05/15/21 05/20/21 History Shower Chair #1 ea 05/16/21 Rx Patient History Medical History ELDON (acute kidney injury) Asymptomatic hyperuricemia Bronchitis CAD (coronary artery disease) Cardiac murmur Chronic kidney disease Congestive heart failure Dyslipidemia Edema GERD (gastroesophageal reflux disease) Gout HTN, goal below 140/90 Hx of blood clots Hx of deep venous thrombosis Hyperglycemia Hypertension Kidney failure Lumbar radiculopathy Lumbar spinal stenosis Lymphoma MALT (mucosa associated lymphoid tissue) Metabolic syndrome Osteoarthritis Osteoporosis, senile Statin intolerance Surgical History Amputated toe of left foot History of cardiac cath 1995 [facility] [place] - NO STENTS --> CABG History of carotid endarterectomy RT - 2016 - ULTRASOUND Q6M - LAST 12/2017 - NO ISSUES History of coronary artery bypass graft 1995 [facility] [place] - NO ISSUES SINCE - FOLLOW DR. Cezar CAZARES History of lumpectomy of right breast (~2018) History of shoulder surgery Hx of cholecystectomy S/P REED-BSO Family History Brother Myocardial infarction Cardiac disorder Hypertension Heart disease Grandmother Uterine cancer Uterine leiomyoma Cancer Daughter Breast cancer Son Diabetes Denies family history of Ovarian cancer Prostate cancer Colorectal cancer Social History Smoking Status: Former smoker Age Started Using Tobacco: 18; Age Quit Using Tobacco: 50; packs per day: 1; Second Hand Exposure: No; Hx Alcohol Use: No Hx Substance Use: No Preferred Language: Kiswahili Communication Ability: Effective Visual Impairment: Limited Hearing Ability: Normal Head Refrigerating Engineer Required: No Beliefs That Will Affect Care: None marital status: / Current Living Situation: Alone current occupational status: retired Other Information That Helps Us Care for You: No Feels Safe at Home: Yes Childhood Exposure to Second-Hand Smoke: Yes caffeine: Yes (1 cup coffee daily) during the past year weight has: remained stable Dental Care, Regularly: Yes Physical Activity Frequency: Does not Exercise Seatbelt Use: always Sunscreen Use: Yes Gender Identity: Female Assistive Devices: Denture - Upper, Denture - Lower and Walker Review of Systems Constitutional: no fever, no chills and no malaise Gastrointestinal: + abdominal pain, + nausea and + vomiting; no heartburn, no change in bowel habits, no change in stools, no diarrhea/loose stools, no blood in stools and no melena Physical Exam Constitutional: WD/WN, vitals as above Respiratory: normal respiratory effort; no respiratory distress Cardiovascular: Rate/Rhythm: + tachycardic Gastrointestinal (Abdomen): Inspection/Auscultation: + visible herniation (large incisional hernia just right of midline ) Percussion/Palpation: + abdomen tender (mild over hernia), abdomen soft and + hernia (cantaloupe sized) LLQ wound covered with duoderm Results & Data ([facility]) Vital Signs (Past 12 Hours) Vital Signs Temp Pulse Resp BP Pulse Ox 05/20/21 14:00 101 H 18 112/46 L 94 05/20/21 13:30 101 H 18 84/37 L 93 05/20/21 13:06 94 H 20 107/81 95 05/20/21 12:01 102 H 18 166/90 H 95 05/20/21 11:30 99 H 20 146/74 H 95 05/20/21 11:00 92 H 16 154/81 H 95 05/20/21 10:30 94 H 16 157/80 H 95 05/20/21 10:05 97 05/20/21 10:00 90 18 163/98 H 97 05/20/21 09:30 99 H 22 152/84 H 95 05/20/21 09:14 36.6 C 92 H 18 156/79 H 98 05/20/21 09:09 88 22 156/79 H 97 PG Care Time/CCT Total # of Minutes Spent Total Time Spent with Patient: Total time spent is greater than 50% in coordination of care (as documented) at patient's floor/unit and/or counseling patient: Coding Level of Care Code 43318 Initial Inpt Care Lvl 3 Diagnoses Incisional hernia K43.2
--- NOTE | 2021-05-20 15:54 | Electrocardiogram Report ---
Test Reason : Blood Pressure : / mmHG Vent. Rate : 098 BPM Atrial Rate : 098 BPM P-R Int : 166 ms QRS Dur : 116 ms QT Int : 380 ms P-R-T Axes : 034 -46 014 degrees QTc Int : 485 ms Normal sinus rhythm Right bundle branch block Left anterior fascicular block Possible Lateral infarct (cited on or before 03-MAR-2021) Abnormal ECG When compared with ECG of 03-MAR-2021 19:13, No significant change was found Confirmed by Bipin Mendoza ([id number]) on 05/20/2021 3:54:07 PM Referred By: REFERRED SELF Confirmed By:Bipin Mendoza
[2021-05-20 16:13] LABS: INR 3.8 (0.9-1.1); Prothrombin Time 34.9 Seconds (9.0-12.0)
--- NOTE | 2021-05-20 16:19 | History & Physical Report ---
Date of Service May 20, 2021 Assessment & Plan (1) Hernia: Plan: Consideration that this is an incisional hernia with a discrete collection of blood and surrounding fat stranding indicating inflammation. For now we will place a monitored observation. Consult general surgery. They did recommend antibiotics, Zosyn is already been given in the emergency room and we can continue this. Hemoglobin is down to 9.8 from 13.5 last month. Will need to monitor. Keep off of blood thinners (coumadin, ASA) for now, as noted below. (2) Dyslipidemia: Plan: Check fasting lipids, patient is not on a statin (3) Congestive heart failure: Plan: No acute component, continue Lasix and spironolactone as ordered. Defer further treatment (4) CAD (coronary artery disease): Plan: As noted above (5) CKD (chronic kidney disease) stage 3, GFR 30-59 ml/min: Plan: Continue to monitor renal function (6) GERD (gastroesophageal reflux disease): Plan: Famotidine 40 mg daily chest, can continue (7) DVT (deep venous thrombosis): Plan: As patient hemoglobin is dropped significantly, will need to discontinue Coumadin and Lovenox. Monitor H&H every 8 hours. Check lower extremity Dopplers, if negative can consider SCDs for DVT prophylaxis. History of Present Illness Chief Complaint: Abdominal pain Primary Care Provider: Sabina Lilly MD This is a 75-year-old female with past medical history of large abdominal hernia, previous DVT now on Coumadin, dyslipidemia, CAD, CKD stage III. Patient is a somewhat limited historian but has family member in room with her. Patient has had ongoing issues with a large hernia in her lower abdomen. She was apparently doing well with this and following with general surgery. Starting 2 days ago she started to have some nausea vomiting. She had diminished appetite was only able to tolerate small amount of yogurt last night. She did have a bowel movements that were normal. Pain became more severe. She does deny any fevers or chills. She was unable to tolerate any food or liquid and this is what prompted her to come to the emergency room. In the ER, she underwent a CT scan of the belly. This showed a large hernia without evidence of obstruction or strangulation. There was a fluid collection that was concerning for abscess. The patient is already been seen by general surgery and was felt that this may represent a collection of blood, possible brought on by her ongoing use of blood thinners. They recommended antibiotics and observation overnight but had no plans for immediate surgical intervention. Allergies Allergy/AdvReac Type Severity Reaction Status Date / Time Sulfa (Sulfonamide Allergy Mild skin turns Verified 05/20/21 09:59 Antibiotics) red, itchy, throat swelling sulfamethoxazole Allergy Mild skin turns Verified 05/20/21 09:59 red trimethoprim Allergy Mild skin turns Verified 05/20/21 09:59 red atorvastatin Allergy Verified 05/20/21 09:59 grass pollen Allergy Verified 05/20/21 09:59 latex Allergy unsure ?? Verified 05/20/21 09:59 Home Medications Medication Instructions Recorded Confirmed Type furosemide 40 mg tablet (Lasix) 40 mg PO QAM #0 03/29/07 05/20/21 History cholecalciferol (vitamin D3) 50 6,000 unit PO QAM #0 08/04/11 05/20/21 History mcg (2,000 unit) capsule (Vitamin D3) nitroglycerin 0.4 mg sublingual 0.4 mg SL Q5M PRN #25 tab 05/04/19 05/20/21 History tablet allopurinol 300 mg tablet 300 mg PO QAM 06/29/19 05/20/21 History aspirin 81 mg tablet,delayed 81 mg PO QAM 08/03/19 05/20/21 History release cilostazol 100 mg tablet 100 mg PO BID 03/03/21 05/20/21 History famotidine 40 mg tablet 40 mg PO HS 03/03/21 05/20/21 History spironolactone 50 mg tablet 50 mg PO QAM 03/03/21 05/20/21 History diclofenac sodium 1 % topical gel 2 g TOPICAL QID PRN 03/22/21 05/20/21 History metoprolol tartrate 50 mg tablet 50 mg PO BID #60 tab 05/01/21 05/20/21 Rx acetaminophen 500 mg tablet 1,000 mg PO Q6H PRN 05/02/21 05/20/21 History (Tylenol Extra Strength) colchicine 0.6 mg tablet 0.6 mg PO QAM 05/02/21 05/20/21 History escitalopram oxalate 5 mg tablet 5 mg PO QAM 05/02/21 05/20/21 History warfarin 5 mg tablet See Rx Instructions PO DAILY tab 05/15/21 05/20/21 History Shower Chair #1 ea 05/16/21 Rx Past Med/Surg History Medical History ELDON (acute kidney injury) Asymptomatic hyperuricemia Bronchitis CAD (coronary artery disease) Cardiac murmur Chronic kidney disease Congestive heart failure Dyslipidemia Edema GERD (gastroesophageal reflux disease) Gout HTN, goal below 140/90 Hx of blood clots Hx of deep venous thrombosis Hyperglycemia Hypertension Kidney failure Lumbar radiculopathy Lumbar spinal stenosis Lymphoma MALT (mucosa associated lymphoid tissue) Metabolic syndrome Osteoarthritis Osteoporosis, senile Statin intolerance Surgical History Amputated toe of left foot History of cardiac cath 1995 [facility]- [place] - NO STENTS --> CABG History of carotid endarterectomy RT - 2016 - ULTRASOUND Q6M - LAST 12/2017 - NO ISSUES History of coronary artery bypass graft 1995 [facility] [place] - NO ISSUES SINCE - FOLLOW DR. Cezar CAZARES History of lumpectomy of right breast (~2017) History of shoulder surgery Hx of cholecystectomy S/P REED-BSO Family History Brother Myocardial infarction Cardiac disorder Hypertension Heart disease Grandmother Uterine cancer Uterine leiomyoma Cancer Daughter Breast cancer Son Diabetes Denies family history of Ovarian cancer Prostate cancer Colorectal cancer Social History Smoking Status: Former smoker Age Started Using Tobacco: 18; Age Quit Using Tobacco: 50; packs per day: 1; Second Hand Exposure: No; Hx Alcohol Use: Yes Alcohol type: wine and hard liquor Alcohol Intake Frequency: Monthly or Less Alcohol Intake Frequency Comment: 10 of March only Hx Substance Use: No Preferred Language: Bolivian Communication Ability: Effective Visual Impairment: Limited Hearing Ability: Normal Cement Loader Required: No Beliefs That Will Affect Care: None marital status: / Current Living Situation: Alone current occupational status: retired Feels Safe at Home: Yes Childhood Exposure to Second-Hand Smoke: Yes caffeine: Yes (1 cup coffee daily) during the past year weight has: remained stable Dental Care, Regularly: Yes Physical Activity Frequency: Does not Exercise Seatbelt Use: always Sunscreen Use: Yes Gender Identity: Female Assistive Devices: Cane and Glasses Review of Systems Constitutional: no fever, no chills, no weakness, no weight loss and no weight gain Eyes: as per Subjective / HPI Respiratory: no cough, no chest congestion, no dyspnea and no dyspnea on exertion Cardiovascular: no chest pain, no orthopnea, no palpitations, no lightheadedness and no edema Gastrointestinal: + abdominal pain, + nausea and + vomiting; no dysphagia, no change in bowel habits, no constipation and no diarrhea/loose stools Genitourinary: no dysuria, no difficulty urinating, no urinary frequency, no urinary hesitancy, no urinary urgency and no flank pain Musculoskeletal: no back pain, no neck pain, no joint pain, no stiffness and no myalgia Integumentary: no rash Neurologic: no gait abnormality, no unsteadiness, no falls and no generalized weakness Physical Exam Constitutional: cooperative; no acute distress Neck: trachea midline, no thyromegaly Respiratory: normal respiratory effort Auscultation: lungs clear to auscultation bilaterally; no crackles, no rales, no rhonchi and no wheezes Cardiovascular: Rate/Rhythm: regular rate and regular rhythm Heart Sounds: normal S1 and normal S2 Gastrointestinal (Abdomen): Inspection/Auscultation: abdomen normal to inspection Percussion/Palpation: abdomen soft (Large abdominal area just inferior to the umbilicus. Minimally tender.); abdomen nontender, no guarding, abdomen not rigid and no hepatosplenomegaly Skin: no rashes, warm and dry Results & Data Results & Data ([facility]) Vital Signs (Past 12 Hours) Vital Signs Temp Pulse Resp BP Pulse Ox 05/20/21 14:00 101 H 18 112/46 L 94 05/20/21 13:30 101 H 18 84/37 L 93 05/20/21 13:06 94 H 20 107/81 95 05/20/21 12:01 102 H 18 166/90 H 95 05/20/21 11:30 99 H 20 146/74 H 95 05/20/21 11:00 92 H 16 154/81 H 95 05/20/21 10:30 94 H 16 157/80 H 95 05/20/21 10:05 97 09/13/21 10:00 90 18 163/98 H 97 05/20/21 09:30 99 H 22 152/84 H 95 05/20/21 09:14 36.6 C 92 H 18 156/79 H 98 05/20/21 09:09 88 22 156/79 H 97 Laboratory Results Laboratory Results WBC 11.97 K/uL (4.8-10.8) H 05/20/21 09:49 RBC 3.03 M/uL (4.2-5.4) L 05/20/21 09:49 Hgb 9.8 g/dL (12.0-16.0) L 05/20/21 09:49 Hct 29.5 % (37-47) L 05/20/21 09:49 MCV 97.4 fL (80-100) 05/20/21 09:49 MCH 32.3 pg (25-34) 05/20/21 09:49 MCHC 33.2 g/dL (32-36) 05/20/21 09:49 RDW Std Deviation 53.2 fL (36.4-46.3) H 05/20/21 09:49 RDW Coeff of Phylicia 15.0 % (11.5-14.5) H 05/20/21 09:49 Plt Count 413 K/uL (130-400) H 05/20/21 09:49 MPV 10.7 fL (7.4-10.4) H 05/20/21 09:49 Immature Gran % (Auto) 0.3 % 05/20/21 09:49 Neut % (Auto) 79.2 % 05/20/21 09:49 Lymph % (Auto) 9.7 % 05/20/21 09:49 Pepin % (Auto) 10.6 % 05/20/21 09:49 Eos % (Auto) 0.1 % 05/20/21 09:49 Baso % (Auto) 0.1 % 05/20/21 09:49 Neut # (Auto) 9.49 K/uL (1.4-6.5) H 05/20/21 09:49 Lymph # (Auto) 1.16 K/uL (1.2-3.4) L 05/20/21 09:49 Pepin # (Auto) 1.27 K/uL (0.11-0.59) H 05/20/21 09:49 Eos # (Auto) 0.01 K/uL (0-0.5) 05/20/21 09:49 Baso # (Auto) 0.01 K/uL (0-0.2) 05/20/21 09:49 Immature Gran # (Auto) 0.03 K/uL (0.00-0.02) H 05/20/21 09:49 Sodium 133 mmol/L (136-145) L 05/20/21 09:49 Potassium 4.0 mmol/L (3.5-5.1) 05/20/21 09:49 Chloride 100 mmol/L (98-107) 05/20/21 09:49 Carbon Dioxide 26 mmol/L (21-32) 05/20/21 09:49 Anion Gap 7.0 (3-11) 05/20/21 09:49 BUN 42 mg/dl (7-18) H 05/20/21 09:49 Creatinine 1.88 mg/dl (0.6-1.2) H 05/20/21 09:49 Est Cr Clr Drug Dosing 23.3 ml/min 05/20/21 09:49 Est GFR ( Amer) 30.0 ml/min 05/20/21 09:49 Est GFR (Non-Af Amer) 25.9 ml/min 05/20/21 09:49 BUN/Creatinine Ratio 22.6 (10-20) H 05/20/21 09:49 Glucose 93 mg/dl (70-99) 05/20/21 09:49 Lactate 1.3 mmol/L (0.4-2.0) 05/20/21 09:49 Calcium 9.9 mg/dl (8.5-10.1) 05/20/21 09:49 Total Bilirubin 0.8 mg/dl (0.2-1) 05/20/21 09:49 Direct Bilirubin 0.3 mg/dl (0-0.2) H 05/20/21 09:49 AST 27 U/L (15-37) 05/20/21 09:49 ALT 14 U/L (12-78) 05/20/21 09:49 Alkaline Phosphatase 106 U/L (45-117) 05/20/21 09:49 Total Protein 6.5 gm/dl (6.4-8.2) 05/20/21 09:49 Albumin 2.5 gm/dl (3.4-5.0) L 05/20/21 09:49 Lipase 77 U/L (73-393) 05/20/21 09:49 COVID-19 Eval Order Covid19 at [facility] 05/20/21 15:20 Impressions Abdomen/Pelvis CT 05/20/21 10:34 CT SCAN OF THE ABDOMEN AND PELVIS WITHOUT CONTRAST CLINICAL HISTORY: rlq pain swelling hernia COMPARISON STUDY: May 02, 2021 TECHNIQUE: CT scan of the abdomen and pelvis was performed from the lung bases to the proximal femurs. Images are reviewed in the axial, sagittal, and coronal planes. IV contrast was not administered for this examination. A dose lowering technique was utilized adhering to the principles of ALARA. CT DOSE: 1001.66 mGy.cm FINDINGS: Lower chest: Mild atelectasis at dependent portions of bilateral lower lobes. There are few pneumocytes are seen within right and left lower lungs. Liver: The unenhanced liver is normal in size, contour, and attenuation. There is no intrahepatic biliary ductal dilatation. Gallbladder: Is not well seen, probably surgically absent. Stable punctate calculus is seen within common bile duct (3/109) Spleen: Is normal in size and attenuation. Splenic vessels calculi are again seen. Pancreas: Unremarkable. Adrenal glands: Nodularity of the right adrenal gland is seen. There is 1.7 cm left adrenal nodule with poorly defined borders is seen and measuring attenuation of 19 Hounsfield units, was seen on prior study; also there is additional stable 7 mm left adrenal nodule which is unchanged in size since August 13, 2017 exam. Please correlate above-mentioned findings with prior history of of adrenal nodules and clinical presentation of adrenal abnormalities.. Kidneys: The unenhanced kidneys are normal in size without hydronephrosis. There is no contour deforming renal mass lesion. No renal calculi on the right. Punctate nonobstructive calculus is seen within left renal parenchyma. Bowel: Moderate hiatal hernia. Bowel loops are nondilated. Appendix is not seen. Diverticulosis of sigmoid colon is seen without evidence of diverticulitis. Redemonstration of the large hernia within inferior anterior abdominal wall with ostium measuring 6.7 cm, containing nondilated loops of small bowel. Interval development of heterogeneous collection at the peripheral l aspect of the hernia sac which might represent blood products as well as few clustered focal collection: largest is measured 2.7 cm and show hypoattenuating center concerning for developing abscess. Also fat stranding is seen within the hernia sac. Peritoneum: Intra-abdominal portion of the peritoneum, outside of the hernia sac shows no evidence of free fluid collection or gas. Vasculature: Abdominal aorta is normal in caliber, tortuous with extensive wall calcifications within its distal aspect and within iliac arteries. Adenopathy: None. Pelvic viscera: Urinary bladder is partially decompressed. Uterus is surgically absent. Skeletal structures: Osteopenia. Healing fracture of the right ischial bone. Extensive degenerative changes of the spine are again seen. Previously seen focal area of fat is stranding within left inferior abdominal wall is improving since prior. IMPRESSION: 1. Large hernia within inferior anterior abdominal wall containing nondilated loops of bowel without evidence of obstruction or strangulation. Interval development of collection at the peripheral aspect of the hernia sac which shows areas of increased and decreased attenuation which might represent blood products. Interval development of cluster collection within the hernia sac, largest is showing hypoattenuating center, and surrounding fat stranding which might represent developing abscess. Report will be sent to emergency Department. 2. Moderate hiatal hernia. 3. Diverticulosis of sigmoid colon without evidence of diverticulitis. 4. Atherosclerosis. 5. Left adrenal nodule. Please see discussion above. 6. The rest of findings as above. ACT 112: Negative or not required by law. The above report was generated using voice recognition software. It may contain grammatical, syntax or spelling errors. Electronically signed by: Maine Abad DO 05/20/2021 1:39 PM PG Care Time/CCT Total # of Minutes Spent Total Time Spent with Patient: Total time spent is greater than 50% in coordin ation of care (as documented) at patient's floor/unit and/or counseling patient: Coding Level of Care Code INT OBSERVATION CARE 70M LVL 3 Diagnoses Hernia K46.9 Dyslipidemia E78.5 Congestive heart failure I50.9 CAD (coronary artery disease) I25.10 CKD (chronic kidney disease) stage 3, GFR 30-59 ml/min N18.3 GERD (gastroesophageal reflux disease) K21.9 DVT (deep venous thrombosis) I82.409
--- NOTE | 2021-05-20 19:40 | Ultrasound Report ---
BILATERAL LOWER EXTREMITY VENOUS DOPPLER CLINICAL HISTORY: edema COMPARISON STUDY: No previous studies for comparison. TECHNIQUE: Sonography of the deep venous system of the bilateral lower extremities was performed. Co mpression and augmentation were evaluated. FINDINGS: The bilateral common femoral, superficial femoral and popliteal veins were compressible. A ugmentation was normal. Flow was shown within the deep calf vessels. IMPRESSION: No evidence of deep venous thrombus within the bilateral lower extremities. ACT 112: Negative or not required by law. Electronically signed by: Irvin Liriano M.D. 05/20/2021 7:39 PM
[2021-05-20] MEDS ORDERED: PIPERACILL/TAZOBAC CONSULT ACTIVE PRN (20:40)
[2021-05-20 21:44] LABS: Hematocrit (blood only) 27.8 % (37-47); Hemoglobin 9.2 g/dL (12.0-16.0)
[2021-05-20] MEDS: FAMOTIDINE 40 MG TABLET PO SCH (22:00)
[2021-05-20] MEDS: cilostazoL 100 MG TAB PO SCH (22:00)
[2021-05-20] MEDS: PIPERACILLIN/TAZOBACTAM 3.375 GM in DEXTROSE 5% 100 ML IV SCH (22:01)
[2021-05-20] MEDS: METOPROLOL TARTRATE 50 MG TAB PO SCH (22:01)
[2021-05-20] MEDS: ACETAMINOPHEN 500 MG TAB PO PRN (22:14)
[2021-05-21] MEDS: PIPERACILLIN/TAZOBACTAM 3.375 GM in DEXTROSE 5% 100 ML IV SCH ×3 (05:03→21:22)
[2021-05-21 07:50] LABS: Basophils # (auto) 0.01 K/uL (0-0.2); Basophils % (auto) 0.1 %; Eosinophils # (auto) 0.05 K/uL (0-0.5); Eosinophils % (auto) 0.5 %; Hematocrit (blood only) 25.8 % (37-47); Hemoglobin 8.5 g/dL (12.0-16.0); Immature Granulocytes # (auto) 0.02 K/uL (0.00-0.02); Immature Granulocytes % (auto) 0.2 %; Lymphocytes # (auto) 0.86 K/uL (1.2-3.4); Lymphocytes % (auto) 8.8 %; Mean Corpuscular Hemoglobin 31.5 pg (25-34); Mean Corpuscular Hgb Conc 32.9 g/dL (32-36); Mean Corpuscular Volume 95.6 fL (80-100); Mean Platelet Volume 10.7 fL (7.4-10.4); Monocytes # (auto) 1.38 K/uL (0.11-0.59); Monocytes % (auto) 14.1 %; Neutrophils # (auto) 7.44 K/uL (1.4-6.5); Neutrophils % (auto) 76.3 %; Platelet Count 387 K/uL (130-400); RDW Coefficient of Variation 15.1 % (11.5-14.5); RDW Standard Deviation 52.1 fL (36.4-46.3); White Blood Count 9.76 K/uL (4.8-10.8)
--- NOTE | 2021-05-21 08:26 | Surgery Progress Note ---
Date of Service May 21, 2021 Assessment & Plan (1) Abdominal hernia: (2) Abdominal wall cellulitis: (3) Hematoma: Plan: Suspect hematoma within hernia sac which is likely infected. I believe this is the majority of the problem. Correct INR which was 3.8 yesterday. Continue antibiotics for what I suspect is an infected hematoma. The hernia does not need acutely repaired but I do believe should be repaired in the near future. The plan would be to treat the infection for several weeks. I will see the patient in the office to discuss elective repair of the large hernia. Of course we would have to hold her anticoagulation prior to any such procedure. For now she is improving we will continue to follow along. We can advance her diet. Clinically she is improving and her white blood cell count is now in the normal range. She is afebrile. Her vitals look better. Admission and Anticipated Discharge Date Admission Date: May 20, 2021 Subjective Patient seen. Some improvement from yesterday. No nausea or vomiting. No abdominal pain just sitting in bed. Physical Exam Constitutional: WD/WN, vitals as above no acute distress and not ill appearing Eyes: PERRL, conjunctivae normal, anicteric sclerae EOM intact bilaterally ENMT: external ear and nose normal, oropharynx normal Ears: no hearing impairment Neck: trachea midline, no thyromegaly Respiratory: normal respiratory effort; no respiratory distress and does not use accessory muscles Cardiovascular: Rate/Rhythm: regular rate and regular rhythm Gastrointestinal (Abdomen): Soft. Large incarcerated lower abdominal hernia. Nonreducible. No erythema or warmth today. Minimal tenderness. Skin: no rashes, warm and dry Psychiatric: Orientation: alert, oriented x 3 and cooperative Results & Data ([facility]) Vital Signs (Past 12 Hours) Vital Signs Temp Pulse Pulse Resp BP Pulse Ox 05/21/21 07:17 88 05/21/21 06:52 36.3 C L 82 18 125/73 92 05/20/21 23:38 113 H 05/20/21 21:58 36.6 C 97 H 18 150/86 H 96 05/20/21 21:00 100 H 05/20/21 20:27 36.8 C 93 H 18 144/80 H 94 05/20/21 20:26 36.8 C 93 H 18 144/80 H 94 PG Care Time/CCT Total # of Minutes Spent Total Time Spent with Patient: Total time spent is greater than 50% in coordination of care (as documented) at patient's floor/unit and/or counseling patient: Coding Level of Care Code 58547 Subseq Hosp Care Lvl 3 Diagnoses Abdominal hernia K46.9 Abdominal wall cellulitis L03.311 Hematoma T14.8XXA
[2021-05-21 08:27] LABS: Calcium 9.2 mg/dl (8.5-10.1); Creatinine Clr Calc Pharmacy 21.3 ml/min; Est GFR (Non-African American) 23.3 ml/min; Potassium 3.6 mmol/L (3.5-5.1)
[2021-05-21] MEDS: FUROSEMIDE 40 MG TAB PO SCH (09:06)
[2021-05-21] MEDS: cilostazoL 100 MG TAB PO SCH ×2 (09:06→21:36)
[2021-05-21] MEDS: SPIRONOLACTONE 25 MG TAB PO SCH (09:06)
[2021-05-21] MEDS: allopurinoL 300 MG TAB PO SCH (09:06)
[2021-05-21] MEDS: ESCITALOPRAM OXALATE 10 MG TAB PO SCH (09:06)
[2021-05-21] MEDS: COLCHICINE 0.6 MG TAB PO SCH (09:06)
[2021-05-21] MEDS: METOPROLOL TARTRATE 50 MG TAB PO SCH ×2 (09:06→21:36)
--- NOTE | 2021-05-21 09:08 | Surgery Progress Note ---
Date of Service May 21, 2021 Assessment & Plan (1) Abdominal hernia: Admission and Anticipated Discharge Date Admission Date: May 20, 2021 Subjective feels a little better, some pain from hernia Physical Exam Gastrointestinal (Abdomen): Inspection/Auscultation: + visible herniation Percussion/Palpation: + abdomen tender (minimal) and abdomen soft Results & Data ([facility]) Vital Signs (Past 12 Hours) Vital Signs Temp Pulse Pulse Resp BP Pulse Ox 05/21/21 07:17 88 05/21/21 06:52 36.3 C L 82 18 125/73 92 05/20/21 23:38 113 H 05/20/21 21:58 36.6 C 97 H 18 150/86 H 96 PG Care Time/CCT Total # of Minutes Spent Total Time Spent with Patient: Total time spent is greater than 50% in coordination of care (as documented) at patient's floor/unit and/or counseling patient: Coding Diagnoses Abdominal hernia K46.9
[2021-05-21 09:17] LABS: INR 4.2 (0.9-1.1); Prothrombin Time 37.9 Seconds (9.0-12.0)
[2021-05-21] MEDS ORDERED: PHYTONADIONE 5 MG TAB PO STA (13:02)
--- NOTE | 2021-05-21 18:09 | Hospitalist Progress Note ---
Date of Service May 21, 2021 Assessment & Plan (1) Hernia: Plan: Abdominal pain appears to be from infected hematoma in the hernia sacfortunately no incarceration, no clear need for surgical intervention at this time. Held Coumadin, will give a little bit of vitamin K given that she had a degree of acute blood loss anemia. Follow CBC and INR, continue antibiotics, serial exams. Appreciate surgical input as well. (2) Dyslipidemia: Plan: Outpatient management n (3) Congestive heart failure: Plan: Clinically compensated at this time (4) CAD (coronary artery disease): Plan: No angina (5) CKD (chronic kidney disease) stage 3, GFR 30-59 ml/min: Plan: Kidney function slightly worse than her baselinelikely related to the acute blood loss anemia, follow, IV fluids if neededgiven her CHF, would prefer watchful waiting as long as her creatinine stabilizes and starts to improve. (6) GERD (gastroesophageal reflux disease): Plan: no complaints of this today (7) DVT (deep venous thrombosis): Plan: DVT was about 4 months agoobviously would be better off with ongoing anticoagulation from a clotting standpoint, but currently the bleeding is the acute issueanticoagulation on hold/reversed. Once it is clear the abdominal situation has improved, then we can resume Coumadin. Fortunately venous Doppler negative. Admission and Anticipated Discharge Date Admission Date: May 20, 2021 Subjective Pain still reasonably significant, although better than yesterday. Still lower abdominal pain. Hernia size does not seem to have changed much to her. No nausea or vomiting. Review of Systems Review of Systems: All systems reviewed & are unremarkable except as noted in HPI & below Physical Exam Physical Exam: In general she is awake and alert pleasant no distress. HEENT normocephalic atraumatic mucous membranes moist. Breathing unlabored no accessory muscle use good effort. Skin shows no rashes no pallor or icterus. Abdomen is soft, she has a very large palpable bulge consistent with a hernia right middle/lower abdomen it is soft, although the skin itself feels a little bit indurated and tender, no firmness to the hernia sac itself. There is a little bit of bruising on the skin. She notes this is new. Results & Data Results & Data ([facility]) Vital Signs (Past 12 Hours) Vital Signs Temp Pulse Pulse Resp BP Pulse Ox 05/21/21 15:43 87 05/21/21 15:39 98.2 F 83 20 129/69 95 05/21/21 11:00 98.4 F 69 20 123/63 94 05/21/21 07:17 88 05/21/21 06:52 97.3 F L 82 18 125/73 92 PG Care Time/CCT Total # of Minutes Spent Total Time Spent with Patient: Total time spent is greater than 50% in coordination of care (as documented) at patient's floor/unit and/or counseling patient: Coding Level of Care Code 80080 Subseq Hosp Care Lvl 3 Diagnoses Hernia K46.9 Dyslipidemia E78.5 Congestive heart failure I50.9 CAD (coronary artery disease) I25.10 CKD (chronic kidney disease) stage 3, GFR 30-59 ml/min N18.3 GERD (gastroesophageal reflux disease) K21.9 DVT (deep venous thrombosis) I82.409
--- NOTE | 2021-05-21 18:13 | Billing Data ---
Date of Service May 21, 2021 Coding Level of Care Code 16600 Subseq Obs Care Lvl 3 Comment disregard 233, thanks
[2021-05-21] MEDS: FAMOTIDINE 40 MG TABLET PO SCH (21:36)
[2021-05-21] MEDS: ACETAMINOPHEN 500 MG TAB PO PRN (21:38)
[2021-05-21 22:07] LABS: Hemoglobin 8.1 g/dL (12.0-16.0)
[2021-05-22] MEDS ORDERED: SODIUM CHLORIDE 0.9% 250 ML IV PRN (02:27)
--- NOTE | 2021-05-22 02:31 | Communication Note ---
Date of Service: May 22, 2021 Subjective: nursing notified that the patient was pale and weak and confused today. Objective: BP 96/59 HR 80's General: pale Cardiac: regular rate Abdomen: soft, no guarding A/P: 75 yo F w/ pMHx. of CAD and hematoma and downtrending HGB symptomatic and soft BP - ordered H&H - 8.1 - consented and ordered for 1U of blood - ordered to hold 1U of blood - no current abdominal pain - low threshold to CT a/p if worsening vitals or develops abdominal pain
[2021-05-22 03:58] LABS: Basophils # (auto) 0.01 K/uL (0-0.2); Basophils % (auto) 0.1 %; Eosinophils # (auto) 0.14 K/uL (0-0.5); Eosinophils % (auto) 1.6 %; Hematocrit (blood only) 23.5 % (37-47); Hemoglobin 7.7 g/dL (12.0-16.0); Immature Granulocytes # (auto) 0.03 K/uL (0.00-0.02); Immature Granulocytes % (auto) 0.3 %; Lymphocytes # (auto) 1.28 K/uL (1.2-3.4); Lymphocytes % (auto) 14.4 %; Mean Corpuscular Hemoglobin 30.9 pg (25-34); Mean Corpuscular Hgb Conc 32.8 g/dL (32-36); Mean Corpuscular Volume 94.4 fL (80-100); Mean Platelet Volume 10.2 fL (7.4-10.4); Monocytes # (auto) 1.18 K/uL (0.11-0.59); Monocytes % (auto) 13.3 %; Neutrophils # (auto) 6.26 K/uL (1.4-6.5); Neutrophils % (auto) 70.3 %; Platelet Count 366 K/uL (130-400); RDW Coefficient of Variation 14.9 % (11.5-14.5); RDW Standard Deviation 51.5 fL (36.4-46.3); Red Blood Count 2.49 M/uL (4.2-5.4)
[2021-05-22 04:07] LABS: INR 1.3 (0.9-1.1); Prothrombin Time 12.6 Seconds (9.0-12.0)
[2021-05-22 04:34] LABS: Polychromasia 1+
[2021-05-22 04:36] LABS: BUN Creatinine Ratio 23.6 (10-20); Calcium 8.5 mg/dl (8.5-10.1); Creatinine Clr Calc Pharmacy 23.9 ml/min; Est GFR (Non-African American) 26.7 ml/min; Potassium 3.2 mmol/L (3.5-5.1)
[2021-05-22] MEDS: PIPERACILLIN/TAZOBACTAM 3.375 GM in DEXTROSE 5% 100 ML IV SCH ×3 (04:38→21:37)
[2021-05-22] MEDS: METOPROLOL TARTRATE 50 MG TAB PO SCH ×2 (07:53→21:37)
[2021-05-22] MEDS: FUROSEMIDE 40 MG TAB PO SCH (07:53)
[2021-05-22] MEDS: COLCHICINE 0.6 MG TAB PO SCH (07:53)
[2021-05-22] MEDS: SPIRONOLACTONE 25 MG TAB PO SCH (07:54)
[2021-05-22] MEDS: ESCITALOPRAM OXALATE 10 MG TAB PO SCH (07:54)
[2021-05-22] MEDS: cilostazoL 100 MG TAB PO SCH ×2 (07:55→21:37)
[2021-05-22] MEDS: allopurinoL 300 MG TAB PO SCH (07:55)
--- NOTE | 2021-05-22 10:08 | Surgery Progress Note ---
Date of Service May 22, 2021 Assessment & Plan (1) Hematoma: Plan: Clinically she is improving. Her INR is now corrected. My plan would be to complete a course of antibiotics for at least 2 weeks. I can see her in the office to discuss elective repair of her large hernia. (2) Abdominal hernia: Admission and Anticipated Discharge Date Admission Date: May 20, 2021 Subjective Patient with no new complaints. Her abdominal pain is improving. Physical Exam Physical Exam: Alert. No acute distress Abdomen is soft with large lower abdominal hernia. This is nonreducible. It is not tender at this point. There is no warmth or erythema. Results & Data ([facility]) Vital Signs (Past 12 Hours) Vital Signs Temp Pulse Pulse Resp BP BP Pulse Ox 05/22/21 09:10 36.6 C 80 18 120/68 92 05/22/21 08:10 36.7 C 79 18 116/72 91 05/22/21 07:23 74 05/22/21 07:10 36.8 C 82 20 124/73 92 05/22/21 06:10 36.6 C 74 20 125/74 97 05/22/21 05:40 36.6 C 76 20 125/74 97 05/22/21 05:39 36.8 C 73 18 136/78 93 05/22/21 05:25 36.8 C 76 16 140/70 95 05/22/21 05:06 36.7 C 74 16 124/74 96 05/22/21 03:55 36.9 C 75 18 122/68 97 05/22/21 02:22 121/71 05/22/21 00:08 81 05/21/21 23:43 36.8 C 83 20 96/59 L 93 PG Care Time/CCT Total # of Minutes Spent Total Time Spent with Patient: Total time spent is greater than 50% in coordination of care (as documented) at patient's floor/unit and/or counseling patient: Coding Level of Care Code 79708 Subseq Hosp Care Lvl 3 Diagnoses Hematoma T14.8XXA Abdominal hernia K46.9
[2021-05-22 14:23] LABS: Basophils # (auto) 0.01 K/uL (0-0.2); Basophils % (auto) 0.1 %; Eosinophils # (auto) 0.11 K/uL (0-0.5); Hematocrit (blood only) 30.5 % (37-47); Hemoglobin 9.9 g/dL (12.0-16.0); Immature Granulocytes # (auto) 0.02 K/uL (0.00-0.02); Immature Granulocytes % (auto) 0.2 %; Lymphocytes # (auto) 0.96 K/uL (1.2-3.4); Lymphocytes % (auto) 8.9 %; Mean Corpuscular Hemoglobin 30.9 pg (25-34); Mean Corpuscular Hgb Conc 32.5 g/dL (32-36); Mean Corpuscular Volume 95.3 fL (80-100); Mean Platelet Volume 10.7 fL (7.4-10.4); Monocytes # (auto) 1.64 K/uL (0.11-0.59); Monocytes % (auto) 15.3 %; Neutrophils # (auto) 8.01 K/uL (1.4-6.5); Neutrophils % (auto) 74.5 %; Platelet Count 420 K/uL (130-400); RDW Coefficient of Variation 15.3 % (11.5-14.5); RDW Standard Deviation 53.3 fL (36.4-46.3); White Blood Count 10.75 K/uL (4.8-10.8)
[2021-05-22] MEDS ORDERED: POTASSIUM CHLORIDE CRTAB 20 MEQ TABCR PO ONE (18:18)
--- NOTE | 2021-05-22 18:21 | Billing Data ---
Date of Service May 22, 2021 Coding Level of Care Code 52075 Subseq Obs Care Lvl 3 Comment 226, not 233, please disregard 233
--- NOTE | 2021-05-22 18:21 | Hospitalist Progress Note ---
Date of Service May 22, 2021 Assessment & Plan (1) Hernia: Plan: Abdominal pain appears to be from infected hematoma in the hernia sacfortunately no incarceration, no clear need for surgical intervention at this time. Anticoagulation reversed, continue antibiotics, hopefully home soonjust wants to ensure that she is clearly showing progressespecially given that she had a little bit of acute blood loss anemia and was given a transfusion overnight. (2) Dyslipidemia: Plan: Outpatient management (3) Congestive heart failure: Plan: Clinically compensated at this time, supplement K for hypokalemia (4) CAD (coronary artery disease): Plan: No angina (5) CKD (chronic kidney disease) stage 3, GFR 30-59 ml/min: Plan: Kidney function slightly worse than her baselinelikely related to the acute blood loss anemia, but is improving, anticipate further improvement with transfusion which was given for the acute blood loss anemia. (6) GERD (gastroesophageal reflux disease): Plan: no complaints of this today (7) DVT (deep venous thrombosis): Plan: DVT was about 4 months agoobviously would be better off with ongoing anticoagulation from a clotting standpoint, but currently the bleeding is the acute issueanticoagulation on hold/reversed. Once it is clear the abdominal situation has improved, then we can resume Coumadin. Fortunately venous Doppler negative. Admission and Anticipated Discharge Date Admission Date: May 20, 2021 Subjective Feeling a little better. 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 No nausea vomiting or abdominal pain otherwise. Eating okay. Surgery input appreciated. Review of Systems Review of Systems: All systems reviewed & are unremarkable except as noted in HPI & below Physical Exam Physical Exam: General she is awake and alert pleasant no distress. HEENT normocephalic atraumatic mucous membranes moist. Breathing unlabored no accessory muscle use good effort. Skin shows no rashes no pallor or icterus. Neuro without focal deficits. Abdomen soft less bruised than yesterday, hernia soft is somewhat tender but no guarding rebound or rigidity, no fluctuance, no open lesions no skin erythema. Results & Data Results & Data ([facility]) Vital Signs (Past 12 Hours) Vital Signs Temp Pulse Pulse Resp BP BP Pulse Ox 05/22/21 17:31 86 05/22/21 16:00 99.0 F 88 20 149/80 H 92 05/22/21 09:10 97.9 F 80 18 120/68 92 05/22/21 08:10 98.1 F 79 18 116/72 91 05/22/21 07:23 74 05/22/21 07:10 98.2 F 82 20 124/73 92 PG Care Time/CCT Total # of Minutes Spent Total Time Spent with Patient: Total time spent is greater than 50% in coordination of care (as documented) at patient's floor/unit and/or counseling patient: Coding Level of Care Code 79218 Subseq Hosp Care Lvl 3 Diagnoses Hernia K46.9 Dyslipidemia E78.5 Congestive heart failure I50.9 CAD (coronary artery disease) I25.10 CKD (chronic kidney disease) stage 3, GFR 30-59 ml/min N18.3 GERD (gastroesophageal reflux disease) K21.9 DVT (deep venous thrombosis) I82.409
[2021-05-22] MEDS: FAMOTIDINE 40 MG TABLET PO SCH (21:37)
[2021-05-23] MEDS: PIPERACILLIN/TAZOBACTAM 3.375 GM in DEXTROSE 5% 100 ML IV SCH ×3 (04:42→21:14)
[2021-05-23 06:22] LABS: Basophils # (auto) 0.01 K/uL (0-0.2); Basophils % (auto) 0.1 %; Eosinophils # (auto) 0.14 K/uL (0-0.5); Eosinophils % (auto) 1.5 %; Hematocrit (blood only) 29.7 % (37-47); Hemoglobin 9.9 g/dL (12.0-16.0); Immature Granulocytes # (auto) 0.05 K/uL (0.00-0.02); Immature Granulocytes % (auto) 0.5 %; Lymphocytes # (auto) 1.19 K/uL (1.2-3.4); Lymphocytes % (auto) 12.6 %; Mean Corpuscular Hgb Conc 33.3 g/dL (32-36); Mean Corpuscular Volume 93.1 fL (80-100); Mean Platelet Volume 10.7 fL (7.4-10.4); Monocytes # (auto) 1.12 K/uL (0.11-0.59); Monocytes % (auto) 11.8 %; Neutrophils # (auto) 6.95 K/uL (1.4-6.5); Neutrophils % (auto) 73.5 %; Platelet Count 393 K/uL (130-400); RDW Coefficient of Variation 15.3 % (11.5-14.5); RDW Standard Deviation 51.7 fL (36.4-46.3); Red Blood Count 3.19 M/uL (4.2-5.4); White Blood Count 9.46 K/uL (4.8-10.8)
[2021-05-23 07:07] LABS: BUN Creatinine Ratio 20.8 (10-20); Calcium 9.6 mg/dl (8.5-10.1); Est GFR (African American) 37.5 ml/min; Est GFR (Non-African American) 32.4 ml/min; Potassium 3.9 mmol/L (3.5-5.1)
[2021-05-23] MEDS: FUROSEMIDE 40 MG TAB PO SCH (07:37)
[2021-05-23] MEDS: METOPROLOL TARTRATE 50 MG TAB PO SCH ×2 (07:37→21:10)
[2021-05-23] MEDS: SPIRONOLACTONE 25 MG TAB PO SCH (07:37)
[2021-05-23] MEDS: ESCITALOPRAM OXALATE 10 MG TAB PO SCH (07:37)
[2021-05-23] MEDS: COLCHICINE 0.6 MG TAB PO SCH (07:37)
[2021-05-23] MEDS: allopurinoL 300 MG TAB PO SCH (07:37)
[2021-05-23] MEDS: cilostazoL 100 MG TAB PO SCH ×2 (07:37→21:10)
--- NOTE | 2021-05-23 19:44 | Billing Data ---
Date of Service May 23, 2021 Coding Level of Care Code 10492 Prolonged Care (int'l)
--- NOTE | 2021-05-23 19:44 | Hospitalist Progress Note ---
Date of Service May 23, 2021 Assessment & Plan (1) Hernia: Plan: Abdominal pain appears to be from infected hematoma in the hernia sacfortunately no incarceration, no clear need for surgical intervention at this time. Anticoagulation reversed, continue antibiotics, appears stable for discharge in this regard Did have a degree of acute blood loss anemia with thisrequired 1 unit transfusion, has appeared stable since. (2) Dyslipidemia: Plan: Outpatient management (3) Congestive heart failure: Plan: Clinically compensated at this time, supplement K for hypokalemia. To clarifyall of her cardiology care appears to take place at outside facilities, and we do not have records to clarify what type of CHF she has. Fortunately most importantly, it is compensated (4) CAD (coronary artery disease): Plan: No angina (5) CKD (chronic kidney disease) stage 3, GFR 30-59 ml/min: Plan: As expected, kidney function improved with transfusion (6) GERD (gastroesophageal reflux disease): Plan: no complaints of this today (7) DVT (deep venous thrombosis): Plan: DVT was about 4 months agoobviously would be better off with ongoing anticoagulation from a clotting standpoint, but currently the bleeding is the acute issueanticoagulation on hold/reversed. Once it is clear the abdominal situation has improved, then we can resume Coumadin. Fortunately venous Doppler negative. (8) Open abdominal wall wound: Plan: Brought to my attention in discussion with daughter that patient was scheduled for debridement next week. I have not seen anything notably worrisome, although I did discuss with the daughter that it was mostly focused on the hernia, and that immediately surrounding area. Surgery also has not commented on anything that would appear to need debridement. Wound care photos reviewed as well, will reevaluate tomorrow, and discussed with surgery tomorrow. If debridement was needed, obviously it would make sense to do this prior to resuming Coumadin since she is off it right now already. (9) Weakness: Plan: Very weak, and appears quite unsafe for homeespecially given that she lives at home alone and does not have the ability for 24/7 supervision. Patient herself seems to have a degree of emotional denial about how weak she is, clinging to the idea of being able to go home, and not really being able to have a rational discourse about this. I discussed with the patient, especially after watching her try to walk, that I would not at all feel ethical having her go home in her current state of weakness. I did discuss further that she is free to make her own decisions, but that I felt strongly enough about her weakness that if she chose to go home she would have to leave AGAINST MEDICAL ADVICE. Fortunately her daughter is in agreement with the patient needing rehab, and would not come to pick her up if the patient opted to leave against advice. Continue PT/OT eval and treat, continue discussions, hopefully patient will consent for rehab. (10) Discharge planning issues: Plan: See above, would be most appropriate for SNF/rehab emphasis or rehab. See case management notes as wellfamily requested referral to [facility] (11) DVT prophylaxis: Plan: Pharmacologic contraindicated due to her bleeding into her hernia sac and acute blood loss anemia. Mechanical of dubious benefit, and possible risk as far as skin breakdown or falls. Continued vigilance, given that she did have a DVT about 4 months agoalthough fortunately most recent venous Dopplers this hospital stay are negative Plan: time in ~12p, time out ~1230p, additionally 15min call w dtr (unable to have face to face given pandemic related visitor restrictions) >30mins face to face/coordinating care/etc Admission and Anticipated Discharge Date Admission Date: May 22, 2021 Subjective Abdominal pain up and down, although definitely more tolerable than before. Otherwise generally feeling better. Is unfortunately quite weak. Saw patient before PTreturned after PT, patient adamant that she does not want to go anywhere but home. Extensive discussions, had patient try to walk (which was quite weak and unsteady) discussed after this, and in spite of all of this she was adamant that she would not go anywhere but home. Later updated daughter over the phone as well. Review of Systems Review of Systems: All systems reviewed & are unremarkable except as noted in HPI & below Physical Exam Physical Exam: In general she is awake and alert no distress. HEENT normocephalic atraumatic mucous membranes are moist. Breathing unlabored no accessory muscle use good effort. Abdomen is soft nondistended, hernia still pr esent it is soft, no clear bruising or erythema, still a little bit tender but no guarding rebound or rigidity, it is not firmit is much better than before. Her strength is quite poorI had her try to get up on her own with a walker, it probably took her 30 seconds of unsteady efforts to even be able to get to a standing position, then she walked about 5 feet to the foot of the bed, trying to turn about 90 degrees at the foot of the bed became a point at which she really seem to lose the ability to move/control herself well, and before she lost her balance or had a fall, I moved the chair behind her and had her sit back down. No focal neuro deficits. Results & Data Results & Data ([facility]) Vital Signs (Past 12 Hours) Vital Signs Temp Pulse Resp BP Pulse Ox 05/23/21 15:33 97.7 F 82 18 157/88 H 98 05/23/21 10:19 95 PG Care Time/CCT Total # of Minutes Spent Total Time Spent with Patient: Total time spent is greater than 50% in coordination of care (as documented) at patient's floor/unit and/or counseling patient: Coding Level of Care Code 78232 Subseq Hosp Care Lvl 3 Diagnoses Hernia K46.9 Dyslipidemia E78.5 Congestive heart failure I50.9 CAD (coronary artery disease) I25.10 CKD (chronic kidney disease) stage 3, GFR 30-59 ml/min N18.3 GERD (gastroesophageal reflux disease) K21.9 DVT (deep venous thrombosis) I82.409 Open abdominal wall wound S31.109A Weakness R53.1 Discharge planning issues Z02.9 DVT prophylaxis Z29.9
[2021-05-23] MEDS: FAMOTIDINE 40 MG TABLET PO SCH (21:10)
[2021-05-24] MEDS: PIPERACILLIN/TAZOBACTAM 3.375 GM in DEXTROSE 5% 100 ML IV SCH ×3 (05:54→21:57)
[2021-05-24] MEDS: COLCHICINE 0.6 MG TAB PO SCH (07:51)
[2021-05-24] MEDS: cilostazoL 100 MG TAB PO SCH ×2 (07:52→21:57)
[2021-05-24] MEDS: allopurinoL 300 MG TAB PO SCH (07:52)
[2021-05-24] MEDS: ESCITALOPRAM OXALATE 10 MG TAB PO SCH (07:52)
[2021-05-24] MEDS: SPIRONOLACTONE 25 MG TAB PO SCH (07:52)
[2021-05-24] MEDS: FUROSEMIDE 40 MG TAB PO SCH (07:52)
[2021-05-24] MEDS: METOPROLOL TARTRATE 50 MG TAB PO SCH ×2 (07:52→22:00)
--- NOTE | 2021-05-24 08:07 | Surgery Progress Note ---
Date of Service May 24, 2021 Assessment & Plan (1) Hematoma: Plan: h/h stable after transfusion yesterday...todays labs pending continue antibiotics for 2 weeks regarding LLQ wound.... nothing I see needs debridement. may tunnel to hernia sac....will need to address during hernia surgery in the future... can restart anticoagulation and can be d/c'd to rehab from my standpoint. 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 (2) Abdominal hernia: (3) Open abdominal wall wound: Admission and Anticipated Discharge Date Admission Date: May 22, 2021 Subjective pt seen. apparently mildly confused last night. denies pain . Physical Exam Physical Exam: alert. oriented but flat affect abd: soft. hernia unchanged. non-tender. LLQ wound small with tunnelling . no eschar. no drainage or erythema. Results & Data ([facility]) Vital Signs (Past 12 Hours) Vital Signs Temp Pulse Resp BP Pulse Ox 05/24/21 07:19 36.5 C 73 16 180/78 H 96 05/23/21 22:22 36.6 C 80 17 167/84 H 94 05/23/21 21:09 91 H 168/81 H PG Care Time/CCT Total # of Minutes Spent Total Time Spent with Patient: Total time spent is greater than 50% in coordination of care (as documented) at patient's floor/unit and/or counseling patient: Coding Level of Care Code 63648 Subseq Hosp Care Lvl 3 Diagnoses Hematoma T14.8XXA Abdominal hernia K46.9 Open abdominal wall wound S31.109A
[2021-05-24 08:50] LABS: Basophils # (auto) 0.01 K/uL (0-0.2); Basophils % (auto) 0.1 %; Eosinophils # (auto) 0.15 K/uL (0-0.5); Eosinophils % (auto) 1.7 %; Hematocrit (blood only) 28.8 % (37-47); Hemoglobin 9.6 g/dL (12.0-16.0); Immature Granulocytes # (auto) 0.06 K/uL (0.00-0.02); Immature Granulocytes % (auto) 0.7 %; Lymphocytes # (auto) 1.31 K/uL (1.2-3.4); Lymphocytes % (auto) 14.6 %; Mean Corpuscular Hemoglobin 31.1 pg (25-34); Mean Corpuscular Hgb Conc 33.3 g/dL (32-36); Mean Corpuscular Volume 93.2 fL (80-100); Mean Platelet Volume 10.4 fL (7.4-10.4); Monocytes # (auto) 1.36 K/uL (0.11-0.59); Monocytes % (auto) 15.1 %; Neutrophils % (auto) 67.8 %; Platelet Count 419 K/uL (130-400); RDW Coefficient of Variation 15.2 % (11.5-14.5); Red Blood Count 3.09 M/uL (4.2-5.4); White Blood Count 8.99 K/uL (4.8-10.8)
[2021-05-24 09:19] LABS: Est GFR (African American) 41.7 ml/min; Potassium 3.7 mmol/L (3.5-5.1)
[2021-05-24 09:20] LABS: BUN Creatinine Ratio 19.2 (10-20); Calcium 9.8 mg/dl (8.5-10.1); Creatinine Clr Calc Pharmacy 30.5 ml/min
[2021-05-24] MEDS: ACETAMINOPHEN 500 MG TAB PO PRN (19:58)
--- NOTE | 2021-05-24 20:31 | Hospitalist Progress Note ---
Date of Service May 24, 2021 Assessment & Plan (1) Hernia: Plan: Abdominal pain appears to be from infected hematoma in the hernia sacfortunately no incarceration, no clear need for surgical intervention at this time. Anticoagulation reversed, continue antibiotics, appears stable for discharge in this regardwe will switch to oral antibiotics Did have a degree of acute blood loss anemia with thisrequired 1 unit transfusion, has appeared stable since. (2) Dyslipidemia: Plan: Outpatient management (3) Congestive heart failure: Plan: Clinically compensated at this time. To clarifyall of her cardiology care appears to take place at outside facilities, and we do not have records to clarify what type of CHF she has. Fortunately most importantly, it is compensated (4) CAD (coronary artery disease): Plan: No angina (5) CKD (chronic kidney disease) stage 3, GFR 30-59 ml/min: Plan: As expected, kidney function improved with transfusion (6) GERD (gastroesophageal reflux disease): Plan: no complaints of this today (7) DVT (deep venous thrombosis): Plan: DVT was about 4 months agoobviously would be better off with ongoing anticoagulation from a clotting standpoint, but currently the bleeding is the acute issueanticoagulation on hold/reversed. Once it is clear the abdominal situation has improved, then we can resume Coumadin. Fortunately venous Doppler negative. (8) Open abdominal wall wound: Plan: Appreciate surgery inputno need for urgent debridement. Continue local wound care (9) Weakness: [facility]. (10) Discharge planning issues: Plan: Thursday. (11) DVT prophylaxis: Plan: Pharmacologic contraindicated due to her bleeding into her hernia sac and acute blood loss anemia. Mechanical of dubious benefit, and possible risk as far as skin breakdown or falls. Continued vigilance, given that she did have a DVT about 4 months agoalthough fortunately most recent venous Dopplers this hospital stay are negative Plan: time in ~12p, time out ~1230p, additionally 15min call w dtr (unable to have face to face given pandemic related visitor restrictions) >30mins face to face/coordinating care/etc Admission and Anticipated Discharge Date Admission Date: May 22, 2021 Subjective Feeling reasonable. No new complaints. Abdominal pain still present but not that bad. Case discussed with surgeryinput appreciated. Updated daughter and answered all questions. Review of Systems Review of Systems: All systems reviewed & are unremarkable except as noted in HPI & below Physical Exam Physical Exam: In general she is awake and alert pleasant no distress. HEENT normocephalic atraumatic mucous membranes moist. Breathing unlabored no accessory muscle use good effort. Right lower abdomen with ongoing large hernia, appears nearly identical to yesterday without much bruising it is minimally tender no guarding rebound or rigidity is not firm, there is no tracking erythema. Left lower abdominal wounds are dressed, they do not appear purulent or with any tracking erythema when I look under the dressing. Results & Data Results & Data ([facility]) Vital Signs (Past 12 Hours) Vital Signs Temp Pulse Resp BP Pulse Ox 05/24/21 15:16 97.7 F 81 16 150/83 H 97 PG Care Time/CCT Total # of Minutes Spent Total Time Spent with Patient: Total time spent is greater than 50% in coordina tion of care (as documented) at patient's floor/unit and/or counseling patient: Coding Level of Care Code 47909 Subseq Hosp Care Lvl 2 Diagnoses Hernia K46.9 Dyslipidemia E78.5 Congestive heart failure I50.9 CAD (coronary artery disease) I25.10 CKD (chronic kidney disease) stage 3, GFR 30-59 ml/min N18.3 GERD (gastroesophageal reflux disease) K21.9 DVT (deep venous thrombosis) I82.409 Open abdominal wall wound S31.109A Weakness R53.1 Discharge planning issues Z02.9 DVT prophylaxis Z29.9
--- NOTE | 2021-05-24 20:31 | Billing Data ---
Date of Service May 24, 2021 Coding Level of Care Code 70700 Subseq Hosp Care Lvl 2
[2021-05-24] MEDS: FAMOTIDINE 40 MG TABLET PO SCH (21:57)
[2021-05-25] MEDS: PIPERACILLIN/TAZOBACTAM 3.375 GM in DEXTROSE 5% 100 ML IV SCH (05:30)
--- NOTE | 2021-05-25 08:10 | Surgery Progress Note ---
Date of Service May 25, 2021 Assessment & Plan (1) Hematoma: Plan: H&H stabilized can change to po abx prior to d/c waiting for bed at [facility], possibly Thursday Admission and Anticipated Discharge Date Admission Date: May 22, 2021 Subjective feels about the same, not OOB much, bowels moving Physical Exam Gastrointestinal (Abdomen): Inspection/Auscultation: + visible herniation Percussion/Palpation: + abdomen tender (mild, unchanged) and abdomen soft Results & Data ([place]) Vital Signs (Past 12 Hours) Vital Signs Temp Pulse Pulse Resp BP Pulse Ox 05/25/21 06:42 36.5 C 79 16 162/79 H 97 05/24/21 22:42 36.3 C L 87 16 146/80 H 97 05/24/21 21:57 94 H 125/79 PG Care Time/CCT Total # of Minutes Spent Total Time Spent with Patient: Total time spent is greater than 50% in coordination of care (as documented) at patient's floor/unit and/or counseling patient: Coding Level of Care Code 83636 Subseq Hosp Care Lvl 1 Diagnoses Hematoma T14.8XXA
[2021-05-25] MEDS: METOPROLOL TARTRATE 50 MG TAB PO SCH ×2 (08:27→21:25)
[2021-05-25] MEDS: ESCITALOPRAM OXALATE 10 MG TAB PO SCH (08:28)
[2021-05-25] MEDS: allopurinoL 300 MG TAB PO SCH (08:28)
[2021-05-25] MEDS: SPIRONOLACTONE 25 MG TAB PO SCH (08:28)
[2021-05-25] MEDS: FUROSEMIDE 40 MG TAB PO SCH (08:28)
[2021-05-25] MEDS: COLCHICINE 0.6 MG TAB PO SCH (08:29)
[2021-05-25] MEDS: cilostazoL 100 MG TAB PO SCH ×2 (08:29→21:25)
[2021-05-25] MEDS: AMOXICILLIN/CLAVULANATE 875 MG TAB PO SCH (17:43)
--- NOTE | 2021-05-25 17:59 | Hospitalist Progress Note ---
Date of Service May 25, 2021 Assessment & Plan (1) Hernia: Plan: Abdominal pain appears to be from infected hematoma in the hernia sacfortunately no incarceration, no clear need for surgical intervention at this time. Anticoagulation reversed, continue antibiotics, appears stable for discharge in this regardnow on Augmentin Did have a degree of acute blood loss anemia with thisrequired 1 unit transfusion, has appeared stable since. (2) Dyslipidemia: Plan: Outpatient management (3) Congestive heart failure: Plan: Clinically compensated at this time. To clarifyall of her cardiology care appears to take place at outside facilities, and we do not have records to clarify what type of CHF she has. Fortunately most importantly, it is compensated (4) CAD (coronary artery disease): Plan: No angina (5) CKD (chronic kidney disease) stage 3, GFR 30-59 ml/min: Plan: As expected, kidney function improved with transfusion (6) GERD (gastroesophageal reflux disease): Plan: no complaints of this today (7) DVT (deep venous thrombosis): Plan: DVT was about 4 months agoobviously would be better off with ongoing anticoagulation from a clotting standpoint, but currently the bleeding is the acute issueanticoagulation on hold/reversed. Once it is clear the abdominal situation has improved, then we can resume Coumadin. Fortunately venous Doppler negative. Given her weakness and immobility considering low-dose heparin for DVT prophylaxis, for now we will just observation, but likely will need to resume anticoagulation reasonably soon given her clotting riskand just follow closely (8) Open abdominal wall wound: Plan: Appreciate surgery inputno need for urgent debridement. Continue local wound care (9) Weakness: Plan: For rehab at [facility] it seems that it probably will not be till Thursday. (10) Discharge planning issues: Plan: Thursday. (11) DVT prophylaxis: Plan: See abovenow that her bleeding has clearly stopped and clinically she is improving, likely will want to start at least DVT prophylaxis dosing of something quick/reversible like heparin, and follow closely. In the near future resume Coumadin as well. Admission and Anticipated Discharge Date Admission Date: May 22, 2021 Subjective Sleeping comfortably. No new issues identified. Physical Exam Physical Exam: In general she is resting comfortably no distress. HEENT normocephalic atraumatic. Breathing unlabored no accessory muscle use. Skin without rashes or pallor or icterus. Neuro with no focal deficits or asymmetry at rest Results & Data Results & Data ([facility]) Vital Signs (Past 12 Hours) Vital Signs Temp Pulse Resp BP Pulse Ox 05/25/21 15:29 97.9 F 87 16 171/81 H 98 05/25/21 06:42 97.7 F 79 16 162/79 H 97 PG Care Time/CCT Total # of Minutes Spent Total Time Spent with Patient: Total time spent is greater than 50% in coordination of care (as documented) at patient's floor/unit and/or counseling patient: Coding Level of Care Code 56071 Subseq Hosp Care Lvl 1 Diagnoses Hernia K46.9 Dyslipidemia E78.5 Congestive heart failure I50.9 CAD (coronary artery disease) I25.10 CKD (chronic kidney disease) stage 3, GFR 30-59 ml/min N18.3 GERD (gastroesophageal reflux disease) K21.9 DVT (deep venous thrombosis) I82.409 Open abdominal wall wound S31.109A Weakness R53.1 Discharge planning issues Z02.9 DVT prophylaxis Z29.9
[2021-05-25] MEDS: ACETAMINOPHEN 500 MG TAB PO PRN (21:25)
[2021-05-25] MEDS: FAMOTIDINE 40 MG TABLET PO SCH (21:25)
[2021-05-25] MEDS: HEPARIN SOD 5,000 UNIT/0.5 ML VIAL SQ SCH ×2 (21:25→21:42)
[2021-05-26] MEDS: CALCIUM CARBONATE 500 MG CHEWABLE TAB PO PRN (00:58)
[2021-05-26 06:40] LABS: Basophils # (auto) 0.01 K/uL (0-0.2); Basophils % (auto) 0.1 %; Eosinophils # (auto) 0.19 K/uL (0-0.5); Eosinophils % (auto) 2.5 %; Hematocrit (blood only) 28.1 % (37-47); Hemoglobin 10.2 g/dL (12.0-16.0); Immature Granulocytes # (auto) 0.06 K/uL (0.00-0.02); Immature Granulocytes % (auto) 0.8 %; Lymphocytes # (auto) 1.41 K/uL (1.2-3.4); Lymphocytes % (auto) 18.8 %; Mean Corpuscular Hemoglobin 34.5 pg (25-34); Mean Corpuscular Hgb Conc 36.3 g/dL (32-36); Mean Corpuscular Volume 94.9 fL (80-100); Mean Platelet Volume 10.5 fL (7.4-10.4); Monocytes # (auto) 1.16 K/uL (0.11-0.59); Monocytes % (auto) 15.5 %; Neutrophils # (auto) 4.67 K/uL (1.4-6.5); Neutrophils % (auto) 62.3 %; Platelet Count 493 K/uL (130-400); RDW Coefficient of Variation 15.1 % (11.5-14.5); Red Blood Count 2.96 M/uL (4.2-5.4)
[2021-05-26 07:14] LABS: BUN Creatinine Ratio 16.7 (10-20); Calcium 9.5 mg/dl (8.5-10.1); Creatinine Clr Calc Pharmacy 34.9 ml/min; Est GFR (African American) 49.1 ml/min; Est GFR (Non-African American) 42.3 ml/min; Potassium 3.7 mmol/L (3.5-5.1)
[2021-05-26] MEDS: cilostazoL 100 MG TAB PO SCH ×2 (08:11→20:42)
[2021-05-26] MEDS: METOPROLOL TARTRATE 50 MG TAB PO SCH ×2 (08:11→20:42)
[2021-05-26] MEDS: ESCITALOPRAM OXALATE 10 MG TAB PO SCH (08:12)
[2021-05-26] MEDS: allopurinoL 300 MG TAB PO SCH (08:12)
[2021-05-26] MEDS: AMOXICILLIN/CLAVULANATE 875 MG TAB PO SCH ×2 (08:13→17:55)
[2021-05-26] MEDS: COLCHICINE 0.6 MG TAB PO SCH (08:13)
[2021-05-26] MEDS: FUROSEMIDE 40 MG TAB PO SCH (08:13)
[2021-05-26] MEDS: SPIRONOLACTONE 25 MG TAB PO SCH (08:13)
[2021-05-26] MEDS: HEPARIN SOD 5,000 UNIT/0.5 ML VIAL SQ SCH (08:14)
[2021-05-26] MEDS: APIXABAN 2.5 MG TAB PO SCH (14:17)
--- NOTE | 2021-05-26 17:29 | Hospitalist Progress Note ---
Date of Service May 26, 2021 Assessment & Plan (1) Hernia: Plan: Abdominal pain appears to be from infected hematoma in the hernia sacfortunately no incarceration, no clear need for surgical intervention at this time. Anticoagulation reversed, treat for probably 2 weeks total with antibioticsnow on Augmentin Did have a degree of acute blood loss anemia with thisrequired 1 unit transfusion, has appeared stable since. (2) Dyslipidemia: Plan: Outpatient management (3) Congestive heart failure: Plan: Clinically compensated at this time. To clarifyall of her cardiology care appears to take place at outside facilities, and we do not have records to clarify what type of CHF she has. Fortunately most importantly, it is compensated (4) CAD (coronary artery disease): Plan: No angina (5) CKD (chronic kidney disease) stage 3, GFR 30-59 ml/min: Plan: As expected, kidney function improved with transfusion, follow periodic basic metabolic panel (6) GERD (gastroesophageal reflux disease): Plan: no complaints of this today (7) DVT (deep venous thrombosis): Plan: DVT was about 4 months agoobviously would be better off with ongoing anticoagulation from a clotting standpoint, but currently the bleeding is the acute issueanticoagulation on hold/reversed. Given that she is now very stable, and is really had 4 days of stable hemoglobins and improving exams, and given from a clot risk she is very weak and immobile, seems most prudent to start at least prophylaxis type dosing for anticoagulation, and escalate as long as she is doing well. Patient declines subcu heparingiven that she had abdominal wounds from subcu injections, this does seem quite reasonablewe discussed that the main reason for that was its short half-life and quick reversibility, but we will utilize low-dose apixaban for the short half- lifediscussed it may be harder to reverse, but discussed that overall I doubt that we are going to run into significant bleeding. We will continue at prophylaxis range dosing for now, can escalate to therapeutic dosing if needed, but also would want to coordinate with surgery on timing for hernia repair. CBC in the morning to ensure no follow-up blood loss, and would definitely want serial exams and serial CBCs once she is rehabbing at [facility]. (8) Open abdominal wall wound: Plan: Appreciate surgery inputno need for urgent debridement. Continue local wound care (9) Weakness: Plan: For rehab at [facility] tomorrow (10) Discharge planning issues: Plan: Thursday, hopefully (11) DVT prophylaxis: Plan: See abovestarting apixaban 2.5 mg daily, follow CBC. Admission and Anticipated Discharge Date Admission Date: May 22, 2021 Subjective feeling okay. Did not want subcu heparinnotes that she had some of her abdominal wound start from subcu injections. And discussion of alternate ways to give trial to resuming anticoagulation/prevent DVT, we discussed low-dose DOAC, patient expressed understanding but wanted me to discuss the situation with her daughter first. Called daughter, updated, she expressed good understanding of the goals, risk/benefit and consented to proceed. Review of Systems Review of Systems: All systems reviewed & are unremarkable except as noted in HPI & below Physical Exam Physical Exam: In general she is awake and alert no distress. HEENT normocephalic atraumatic mucous membranes moist. Abdomen is soft she has a large ventral hernia but without erythema bruising tenderness guarding rebound rigidity. No focal neuro deficits. Results & Data Results & Data ([facility]) Vital Signs (Past 12 Hours) Vital Signs Temp Pulse Resp BP Pulse Ox 05/26/21 16:01 98.1 F 84 16 151/83 H 93 05/26/21 07:35 97.9 F 83 16 172/90 H 98 PG Care Time/CCT Total # of Minutes Spent Total Time Spent with Patient: Total time spent is greater than 50% in coordination of care (as documented) at patient's floor/unit and/or counseling patient: Coding Level of Care Code 29823 Subseq Hosp Care Lvl 3 Diagnoses Hernia K46.9 Dyslipidemia E78.5 Congestive heart failure I50.9 CAD (coronary artery disease) I25.10 CKD (chronic kidney disease) stage 3, GFR 30-59 ml/min N18.3 GERD (gastroesophageal reflux disease) K21.9 DVT (deep venous thrombosis) I82.409 Open abdominal wall wound S31.109A Weakness R53.1 Discharge planning issues Z02.9 DVT prophylaxis Z29.9
[2021-05-26] MEDS: FAMOTIDINE 40 MG TABLET PO SCH (20:42)
[2021-05-26] MEDS: ACETAMINOPHEN 500 MG TAB PO PRN (20:43)
[2021-05-27] MEDS: CALCIUM CARBONATE 500 MG CHEWABLE TAB PO PRN (01:00)
[2021-05-27 05:57] LABS: Basophils # (auto) 0.02 K/uL (0-0.2); Basophils % (auto) 0.2 %; Eosinophils # (auto) 0.21 K/uL (0-0.5); Eosinophils % (auto) 2.6 %; Hemoglobin 9.8 g/dL (12.0-16.0); Immature Granulocytes # (auto) 0.09 K/uL (0.00-0.02); Immature Granulocytes % (auto) 1.1 %; Lymphocytes # (auto) 1.35 K/uL (1.2-3.4); Lymphocytes % (auto) 16.8 %; Mean Corpuscular Hemoglobin 30.5 pg (25-34); Mean Corpuscular Hgb Conc 32.7 g/dL (32-36); Mean Corpuscular Volume 93.5 fL (80-100); Mean Platelet Volume 10.3 fL (7.4-10.4); Monocytes # (auto) 1.14 K/uL (0.11-0.59); Monocytes % (auto) 14.2 %; Neutrophils # (auto) 5.22 K/uL (1.4-6.5); Neutrophils % (auto) 65.1 %; Platelet Count 493 K/uL (130-400); RDW Coefficient of Variation 15.2 % (11.5-14.5); RDW Standard Deviation 52.2 fL (36.4-46.3); Red Blood Count 3.21 M/uL (4.2-5.4); White Blood Count 8.03 K/uL (4.8-10.8)
[2021-05-27 08:06] LABS: BUN Creatinine Ratio 15.9 (10-20); Calcium 10.3 mg/dl (8.5-10.1); Creatinine Clr Calc Pharmacy 31.6 ml/min; Est GFR (African American) 43.5 ml/min; Est GFR (Non-African American) 37.6 ml/min; Potassium 3.6 mmol/L (3.5-5.1)
--- NOTE | 2021-05-27 08:08 | Hospitalist Progress Note ---
Date of Service May 27, 2021 Assessment & Plan (1) Hernia: Plan: Ally Thompson is a 75-year-old female with past medical history of DVT, dyslipidemia, CAD, CKD 3, abdominal hernia, depression/anxiety who came to [facility] due to nausea, vomiting, and abdominal pain. She was found to have an infected hematoma in her previously existing abdominal hernia. Infected hematoma in abdominal wall hernia -Now s/p transfusion with 1 unit PRBCs due to acute blood loss anemia in the setting of her hematoma -General surgery consulted no recommendation for surgical intervention currently -Initially treated with IV Zosyn, now on Augmentin 875 mg p.o. twice daily for total of 14 days of antibiotics (today is day 8 out of 14) -Trend CBC -Had single episode of vomiting today but no further issues since then--possibly vasovagal symptoms?. -mild abd pain well controlled with Tylenol -Continue to monitor Acute blood loss anemia -As above now status post transfusion with 1 unit PRBCs -H&H has been stable since then -Continue to monitor DVT -History of this about 4 months ago -Previously treated with Coumadin, which was held due to blood loss anemia as above -H&H stable since then, yesterday started on low-dose prophylactic Eliquis at 2.5 mg p.o. daily -Continue for now CKD stage III -Initially had ELDON, likely prerenal due to acute blood loss -Improved back to baseline with transfusion -Follow BMP Open abdominal wound -Continue wound care Weakness -PT/OT consulted -Recommended rehab at [facility] -Placement at [facility] on 05/28 Depression/anxiety -Continue home escitalopram GERD -Continue home famotidine CAD/CHF - Currently well compensated, continue home regimen with spironolactone, furosemide, ASA< cilostazol Gout -Continue home allopurinol, colchicine DVT ppx: Eliquis as above FEN/GI: Heart healthy, famotidine Dispo: Med/Surg, placement at SNF tomorrow Code: FULL CODE (2) Hematoma: (3) Weakness: (4) DVT (deep venous thrombosis): (5) CKD (chronic kidney disease) stage 3, GFR 30-59 ml/min: (6) Incisional hernia: (7) Anxiety and depression: (8) CAD (coronary artery disease): (9) GERD (gastroesophageal reflux disease): Admission and Anticipated Discharge Date Admission Date: May 22, 2021 Supervising Physician Co-Signing Physician Notes Resident Physician Supervision Note: I independently interviewed and examined the patient and verified the lance history and physical, reviewed labs and image studies and agree with resident Dr. Batista findings and care plan. Subjective Patient seen at bedside this morning. She does mention having mild abd pain well controlled with Tylenol. Per discussion with attending, patient did have an episode of vomiting shortly after my visit. Monitoring and has been tolerating PO since. Review of Systems Review of Systems: Denies fever, chills, CP, palp, cough, SOB, n/v, abd pain, diarrhea. Physical Exam Physical Exam: GENERAL: A&Ox3. NAD. CHEST/LUNGS: CTAB A/P. No crackles, wheezes, rales, rhonchi. HEART: RRR. No m/g/r. No carotid bruits. ABDOMEN: NT/ND, soft. BS+ x4 EXTREMITIES: No cyanosis, no clubbing, no edema. PSYCHIATRIC: Euthymic affect, no SI, no pressured speech, no hallucinations NEUROLOGIC: No focal neurologic deficits. Results & Data Results & Data ([facility]) Vital Signs (Past 12 Hours) Vital Signs Temp Pulse Resp BP Pulse Ox 05/27/21 07:14 36.5 C 89 16 169/85 H 97 05/26/21 22:28 36.6 C 94 H 18 151/80 H 96 Resident Activity Tracking Resident Involvement: Resident Care Provided Care Provided: Adult Hospital Medicine
[2021-05-27] MEDS: COLCHICINE 0.6 MG TAB PO SCH (08:43)
[2021-05-27] MEDS: METOPROLOL TARTRATE 50 MG TAB PO SCH ×2 (08:43→20:02)
[2021-05-27] MEDS: SPIRONOLACTONE 25 MG TAB PO SCH (08:44)
[2021-05-27] MEDS: FUROSEMIDE 40 MG TAB PO SCH (08:44)
[2021-05-27] MEDS: AMOXICILLIN/CLAVULANATE 875 MG TAB PO SCH ×2 (08:44→17:26)
[2021-05-27] MEDS: cilostazoL 100 MG TAB PO SCH ×2 (08:44→20:03)
[2021-05-27] MEDS: allopurinoL 300 MG TAB PO SCH (08:45)
[2021-05-27] MEDS: APIXABAN 2.5 MG TAB PO SCH (08:45)
[2021-05-27] MEDS: ESCITALOPRAM OXALATE 10 MG TAB PO SCH (08:45)
[2021-05-27 12:53] LABS: Hematocrit (blood only) 32.8 % (37-47); Hemoglobin 10.8 g/dL (12.0-16.0)
[2021-05-27] MEDS: ACETAMINOPHEN 500 MG TAB PO PRN (20:02)
[2021-05-27] MEDS: FAMOTIDINE 40 MG TABLET PO SCH (20:03)
--- NOTE | 2021-05-28 07:49 | Discharge Summary ---
Date of Service May 28, 2021 Admission HPI Per Admitting Provider This is a 75-year-old female with past medical history of large abdominal hernia, previous DVT now on Coumadin, dyslipidemia, CAD, CKD stage III. Patient is a somewhat limited historian but has family member in room with her. Patient has had ongoing issues with a large hernia in her lower abdomen. She was apparently doing well with this and following with general surgery. Starting 2 days ago she started to have some nausea vomiting. She had diminished appetite was only able to tolerate small amount of yogurt last night. She did have a bowel movements that were normal. Pain became more severe. She does deny any fevers or chills. She was unable to tolerate any food or liquid and this is what prompted her to come to the emergency room. In the ER, she underwent a CT scan of the belly. This showed a large hernia without evidence of obstruction or strangulation. There was a fluid collection that was concerning for abscess. The patient is already been seen by general surgery and was felt that this may represent a collection of blood, possible brought on by her ongoing use of blood thinners. They recommended antibiotics and observation overnight but had no plans for immediate surgical intervention. Discharge Data Allergies Allergy/AdvReac Type Severity Reaction Status Date / Time Sulfa (Sulfonamide Allergy Mild skin turns Verified 05/20/21 09:59 Antibiotics) red, itchy, throat swelling sulfamethoxazole Allergy Mild skin turns Verified 05/20/21 09:59 red trimethoprim Allergy Mild skin turns Verified 05/20/21 09:59 red atorvastatin Allergy Verified 05/20/21 09:59 grass pollen Allergy Verified 05/20/21 09:59 latex Allergy unsure ?? Verified 05/20/21 09:59 Consultations 05/20/21 15:08 ED Decision to Admit Stat 05/20/21 16:20 Consult General Surgery Routine Ordered Studies 05/20/21 10:34 CT abd pelvis oral con only Stat 05/20/21 16:20 US venous doppler LE Routine Hospital Course (1) Hernia: Ally Thompson is a 75-year-old female with past medical history of DVT, dyslipidemia, CAD, CKD 3, abdominal hernia, depression/anxiety who came to [facility] due to nausea, vomiting, and abdominal pain. She was found to have an infected hematoma in her previously existing abdominal hernia. Infected hematoma in abdominal wall hernia -Now s/p transfusion with 1 unit PRBCs due to acute blood loss anemia in the setting of her hematoma -General surgery consulted no recommendation for surgical intervention currently -Initially treated with IV Zosyn, now on Augmentin 875 mg p.o. twice daily for total of 14 days of antibiotics (today is day 8 out of 14) -Trend CBC - Had single episode of vomiting today but no further issues since then--mild abd pain well controlled with Tylenol -Continue to monitor Acute blood loss anemia -As above now status post transfusion with 1 unit PRBCs -H&H has been stable since then -Continue to monitor DVT -History of this about 4 months ago -Previously treated with Coumadin, which was held due to blood loss anemia as above -H&H stable since then, yesterday started on low-dose prophylactic Eliquis at 2.5 mg p.o. daily -Continue for now CKD stage III -Initially had ELDON, likely prerenal due to acute blood loss -Improved back to baseline with transfusion -Follow BMP Open abdominal wound -Continue wound care Weakness -PT/OT consulted -Recommended rehab at [facility] -Placement at [facility] on 05/28 Depression/anxiety -Continue home escitalopram GERD -Continue home famotidine CAD/CHF - Currently well compensated, continue home regimen with spironolactone, furosemide, ASA< cilostazol Gout -Continue home allopurinol, colchicine DVT ppx: Eliquis as above FEN/GI: Heart healthy, famotidine Dispo: Med/Surg, placement at SNF tomorrow Code: FULL CODE (2) Hematoma: (3) Weakness: (4) DVT (deep venous thrombosis): (5) CKD (chronic kidney disease) stage 3, GFR 30-59 ml/min: (6) Incisional hernia: (7) Anxiety and depression: (8) CAD (coronary artery disease): (9) GERD (gastroesophageal reflux disease): Discharge Plan Discharge Items Patient Disposition: Transfer Longterm Fac Reason For Visit: HERNIA, ANEMIA Discharge Diagnosis: Hernia, acute blood loss anemia Activity: Per Instructions section Non-emergency contact: Primary Care Provider and Surgeon Follow-up/Referrals: Sabina Lilly MD [Primary Care Provider] - Rishi Vásquez, [Surgeon] - (Please call to schedule in 1-2 weeks to discuss hernia repair) Diet: Heart Healthy Addtl Attending Provider Instructions: Acute blood loss anemia/bleeding into herniafortunately this has been stable. Restarted anticoagulation at prophylaxis dosing (given the DVT was only about 4 months agomost recent Dopplers are negative, but with recent clot and immobility, patient would be high risk for forming a new clot) -Please continue anticoagulation with -Please follow serial examswhen she was first bleeding she had abdominal bruising around the hernia, obviously there is none now -Please follow serial CBC to trend her hemoglobin Infection -The hematoma appeared to have gotten infected based on inflammatory findings. She was initially treated with Zosyn, now transitioned to Augmentinplease continue this course of treatment through the end of the day 06/03, unless otherwise clinically warranted Hernia -She continues to [facility] follow with [facility] surgicalthey have intentions of repairing hernia in the near future, obviously coordination with the timing of this will also play a role in dosing of her blood thinners. -Her left lower abdominal wounds will be ongoing evaluation at the [facility] wound clinic and [facility] general surgeryand they noted that if debridement needs to be done, it likely could be done at the time of hernia repair. Stand-Alone Forms: My [facility] Medications and DC Order Prescriptions: No Action allopurinol 300 mg tablet 300 mg PO QAM RF: 0 warfarin 5 mg tablet See Rx Instructions PO DAILY RF: 0 furosemide [Lasix] 40 mg Tablet 40 mg PO QAM Qty: 0 RF: 0 cholecalciferol (vitamin D3) [Vitamin D3] 2,000 unit Capsule 6,000 unit PO QAM Qty: 0 RF: 0 diclofenac sodium 1 % gel 2 g topical QID PRN (Reason: joint pain) RF: 0 (DME) Shower Chair Misc See Rx Instructions .Route Qty: 1 RF: 0 metoprolol tartrate 50 mg tablet 50 mg PO BID Qty: 60 RF: 11 aspirin 81 mg tablet,delayed release (DR/EC) 81 mg PO QAM RF: 0 nitroglycerin 0.4 mg tablet, sublingual 0.4 mg SL Q5M PRN (Reason: chest pain) Qty: 25 RF: 0 cilostazol 100 mg tablet 100 mg PO BID RF: 0 famotidine 40 mg tablet 40 mg PO HS RF: 0 spironolactone 50 mg tablet 50 mg PO QAM RF: 0 acetaminophen [Tylenol Extra Strength] 500 mg Tablet 1,000 mg PO Q6H PRN (Reason: Pain) RF: 0 colchicine 0.6 mg tablet 0.6 mg PO QAM RF: 0 escitalopram oxalate 5 mg tablet 5 mg PO QAM RF: 0 Admission Data Admit Date/Time: 05/22/21 18:17 Attending Provider: Libby Branch Admit Provider: Alexys Randhawa Primary Care Provider: Saibna Lilly Other Providers: Johan England Jr ; Alexys Randhawa ; [facility] ; Moni Vigil [facility]
[2021-05-28] MEDS: cilostazoL 100 MG TAB PO SCH ×2 (08:58→21:13)
[2021-05-28] MEDS: ESCITALOPRAM OXALATE 10 MG TAB PO SCH (08:58)
[2021-05-28] MEDS: allopurinoL 300 MG TAB PO SCH (08:59)
[2021-05-28] MEDS: SPIRONOLACTONE 25 MG TAB PO SCH (08:59)
[2021-05-28] MEDS: AMOXICILLIN/CLAVULANATE 875 MG TAB PO SCH ×2 (08:59→17:12)
[2021-05-28] MEDS: COLCHICINE 0.6 MG TAB PO SCH (08:59)
[2021-05-28] MEDS: METOPROLOL TARTRATE 50 MG TAB PO SCH ×2 (08:59→21:14)
[2021-05-28] MEDS: FUROSEMIDE 40 MG TAB PO SCH (09:00)
[2021-05-28] MEDS: APIXABAN 2.5 MG TAB PO SCH ×2 (09:00→21:13)
--- NOTE | 2021-05-28 10:49 | Hospitalist Progress Note ---
Date of Service May 28, 2021 Assessment & Plan (1) Hernia: Plan: Ally Thompson is a 75-year-old female with past medical history of DVT, dyslipidemia, CAD, CKD 3, abdominal hernia, depression/anxiety who came to [facility] due to nausea, vomiting, and abdominal pain. She was found to have an infected hematoma in her previously existing abdominal hernia. Infected hematoma in abdominal wall hernia -Now s/p transfusion with 1 unit PRBCs due to acute blood loss anemia in the setting of her hematoma -General surgery consulted no recommendation for surgical intervention currently -Initially treated with IV Zosyn, now on Augmentin 875 mg p.o. twice daily for total of 14 days of antibiotics (today is day 8 out of 14) -Trend CBC -Had single episode of vomiting today but no further issues since then--likely vasovagal symptoms. -mild abd pain well controlled with Tylenol -Continue to monitor Acute blood loss anemia -As above now status post transfusion with 1 unit PRBCs -H&H has been stable since then -Continue to monitor DVT -History of this about 4 months ago -Previously treated with Coumadin, which was held due to blood loss anemia as above -H&H stable since then, 05/26 started on low-dose prophylactic Eliquis at 2.5 mg p.o. daily -Per telephone discussion with Dr. Anderson, reasonable to dose Eliquis for prophylaxis at 2.5 mg twice daily despite patient not completing full 3 month anticoagulation in the setting of her bleed -Increase Eliquis to 2.5 mg p.o. twice daily -Will make changes according to her recs CKD stage III -Initially had ELDON, likely prerenal due to acute blood loss -Improved back to baseline with transfusion -Follow BMP Open abdominal wound -Continue wound care Weakness -PT/OT consulted -Recommended rehab at [facility] -Initially set up for transfer to [facility] 05/28 but subsequently rejected by facility due to issues with patient's family at previous admission -Placement pending per Case Management Depression/anxiety -Continue home escitalopram GERD -Continue home famotidine CAD/CHF -Currently well compensated, continue home regimen with spironolactone, furosemide, ASA< cilostazol Gout -Continue home allopurinol, colchicine DVT ppx: Eliquis as above FEN/GI: Heart healthy, famotidine Dispo: Med/Surg, placement at [facility] tomorrow Code: FULL CODE (2) Hematoma: (3) DVT (deep venous thrombosis): (4) CKD (chronic kidney disease) stage 3, GFR 30-59 ml/min: (5) CAD (coronary artery disease): (6) GERD (gastroesophageal reflux disease): (7) Hyperlipemia: Admission and Anticipated Discharge Date Admission Date: May 22, 2021 Supervising Physician Co-Signing Physician Notes Resident Physician Supervision Note: I independently interviewed and examined the patient and verified the lance history and physical, reviewed labs and image studies and agree with resident Dr. Batista findings and care plan. Subjective Seen at bedside this AM. Patient has no concerns. Denies nausea or vomiting since yesterday after I saw her. Review of Systems Review of Systems: Denies fever, chills, CP, palp, cough, SOB, n/v, abd pain, diarrhea. Physical Exam Physical Exam: GENERAL: A&Ox3. NAD. CHEST/LUNGS: CTAB A/P. No crackles, wheezes, rales, rhonchi. HEART: RRR. No m/g/r. No carotid bruits. ABDOMEN: NT/ND, soft. BS+ x4 EXTREMITIES: No cyanosis, no clubbing, no edema. PSYCHIATRIC: Euthymic affect, no SI, no pressured speech, no hallucinations NEUROLOGIC: No focal neurologic deficits. Results & Data Results & Data ([facility]) Vital Signs (Past 12 Hours) Vital Signs Temp Pulse Resp BP Pulse Ox 05/28/21 07:09 36.3 C L 96 H 16 149/77 H 95 Resident Activity Tracking Resident Involvement: Resident Care Provided Care Provided: Adult Hospital Medicine
[2021-05-28] MEDS: FAMOTIDINE 40 MG TABLET PO SCH (21:14)
[2021-05-29 06:02] LABS: Hematocrit (blood only) 29.3 % (37-47); Hemoglobin 9.4 g/dL (12.0-16.0)
[2021-05-29 06:37] LABS: BUN Creatinine Ratio 16.7 (10-20); Creatinine Clr Calc Pharmacy 36.4 ml/min; Est GFR (African American) 51.6 ml/min; Est GFR (Non-African American) 44.5 ml/min; Potassium 3.6 mmol/L (3.5-5.1)
--- NOTE | 2021-05-29 08:04 | Hospitalist Progress Note ---
Date of Service May 29, 2021 Assessment & Plan (1) Hernia: Plan: Ally Thompson is a 75-year-old female with past medical history of DVT, dyslipidemia, CAD, CKD 3, abdominal hernia, depression/anxiety who came to [facility] due to nausea, vomiting, and abdominal pain. She was found to have an infected hematoma in her previously existing abdominal hernia. Infected hematoma in abdominal wall hernia -Now s/p transfusion with 1 unit PRBCs due to acute blood loss anemia in the setting of her hematoma -General surgery consulted no recommendation for surgical intervention currently -Initially treated with IV Zosyn, now on Augmentin 875 mg p.o. twice daily for total of 14 days of antibiotics (today is day 10 out of 14) -Trend CBC -mild abd pain well controlled with Tylenol -Continue to monitor Vomiting -Vomited on 05/27 - one episode. Again 05/29 - one episode. both times when she was sitting up. - ? sec to pain from hematoma/antibiotic side effect/orthostasis/vasovagal symptoms. -Vitals stable. Follow closely. Acute blood loss anemia -As above now status post transfusion with 1 unit PRBCs -H&H has been stable since then -Continue to monitor DVT -History of this about 4 months ago -Previously treated with Coumadin, which was held due to blood loss anemia as above -H&H stable since then, 05/26 started on low-dose prophylactic Eliquis at 2.5 mg p.o. daily -Per telephone discussion with Dr. Anderson, reasonable to dose Eliquis for prophylaxis at 2.5 mg twice daily despite patient not completing full 3 month anticoagulation in the setting of her bleed -Continue Eliquis to 2.5 mg p.o. twice daily CKD stage III -Initially had ELDON, likely prerenal due to acute blood loss -Improved back to baseline with transfusion -Follow BMP Open abdominal wound -Continue wound care Weakness -PT/OT consulted -Recommended rehab at [facility] -Initially set up for transfer to [facility] 05/28 but subsequently rejected by facility due to issues with patient's family at previous admission -Placement pending per Case Management -- referral out to [facility] Depression/anxiety -Continue home escitalopram GERD -Continue home famotidine CAD/CHF -Currently well compensated, continue home regimen with spironolactone, furosemide, ASA, cilostazol Gout -Continue home allopurinol, colchicine DVT ppx: Eliquis as above FEN/GI: Heart healthy, famotidine Dispo: Med/Surg, placement at SNF pending Code: FULL CODE (2) Hematoma: (3) DVT (deep venous thrombosis): (4) CKD (chronic kidney disease) stage 3, GFR 30-59 ml/min: (5) CAD (coronary artery disease): (6) GERD (gastroesophageal reflux disease): (7) Hyperlipemia: Admission and Anticipated Discharge Date Admission Date: May 22, 2021 Supervising Physician Co-Signing Physician Notes Resident Physician Supervision Note: I independently interviewed and examined the patient and verified the lance history and physical, reviewed labs and image studies and agree with resident Dr. Batista findings and care plan. Subjective Seen at bedside this AM. Patient has no concerns. Mild abd pain well managed with pain meds. Denies nausea or vomiting since 2 days ago. Review of Systems Review of Systems: Denies fever, chills, CP, palp, cough, SOB, n/v, abd pain, diarrhea. Physical Exam Physical Exam: GENERAL: A&Ox3. NAD. CHEST/LUNGS: CTAB A/P. No crackles, wheezes, rales, rhonchi. HEART: RRR. No m/g/r. No carotid bruits. ABDOMEN: NT/ND, soft. BS+ x4 EXTREMITIES: No cyanosis, no clubbing, no edema. PSYCHIATRIC: Euthymic affect, no SI, no pressured speech, no hallucinations NEUROLOGIC: No focal neurologic deficits. Results & Data Results & Data ([facility]) Vital Signs (Past 12 Hours) Vital Signs Temp Pulse Pulse Resp BP BP Pulse Ox 05/29/21 07:39 36.5 C 85 17 134/74 92 05/28/21 23:05 36.4 C L 88 14 162/88 H 95 05/28/21 21:10 05/28/21 21:07 105 H 168/93 H Pulse Ox 05/29/21 07:39 05/28/21 23:05 05/28/21 21:10 97 05/28/21 21:07 Resident Activity Tracking Resident Involvement: Resident Care Provided Care Provided: Adult [facility]
[2021-05-29] MEDS: FUROSEMIDE 40 MG TAB PO SCH (08:58)
[2021-05-29] MEDS: allopurinoL 300 MG TAB PO SCH (08:59)
[2021-05-29] MEDS: SPIRONOLACTONE 25 MG TAB PO SCH (08:59)
[2021-05-29] MEDS: ESCITALOPRAM OXALATE 10 MG TAB PO SCH (08:59)
[2021-05-29] MEDS: METOPROLOL TARTRATE 50 MG TAB PO SCH ×2 (08:59→20:34)
[2021-05-29] MEDS: AMOXICILLIN/CLAVULANATE 875 MG TAB PO SCH ×2 (08:59→17:38)
[2021-05-29] MEDS: COLCHICINE 0.6 MG TAB PO SCH (08:59)
[2021-05-29] MEDS: APIXABAN 2.5 MG TAB PO SCH ×2 (09:00→20:33)
[2021-05-29] MEDS: cilostazoL 100 MG TAB PO SCH ×2 (09:00→20:34)
[2021-05-29] MEDS: ONDANSETRON INJ 2 MG/ML 2 ML VIAL IV PRN (13:05)
[2021-05-29] MEDS: FAMOTIDINE 40 MG TABLET PO SCH (20:34)
[2021-05-30 06:35] LABS: Basophils # (auto) 0.02 K/uL (0-0.2); Basophils % (auto) 0.2 %; Eosinophils # (auto) 0.15 K/uL (0-0.5); Eosinophils % (auto) 1.4 %; Hematocrit (blood only) 31.2 % (37-47); Hemoglobin 10.2 g/dL (12.0-16.0); Immature Granulocytes # (auto) 0.07 K/uL (0.00-0.02); Immature Granulocytes % (auto) 0.7 %; Lymphocytes # (auto) 1.45 K/uL (1.2-3.4); Mean Corpuscular Hemoglobin 30.5 pg (25-34); Mean Corpuscular Hgb Conc 32.7 g/dL (32-36); Mean Corpuscular Volume 93.4 fL (80-100); Monocytes # (auto) 1.19 K/uL (0.11-0.59); Monocytes % (auto) 11.5 %; Neutrophils # (auto) 7.48 K/uL (1.4-6.5); Neutrophils % (auto) 72.2 %; Platelet Count 559 K/uL (130-400); RDW Coefficient of Variation 15.2 % (11.5-14.5); Red Blood Count 3.34 M/uL (4.2-5.4); White Blood Count 10.36 K/uL (4.8-10.8)
[2021-05-30 07:05] LABS: BUN Creatinine Ratio 15.3 (10-20); Calcium 10.3 mg/dl (8.5-10.1); Creatinine Clr Calc Pharmacy 30.5 ml/min; Est GFR (African American) 41.7 ml/min; Potassium 3.7 mmol/L (3.5-5.1)
--- NOTE | 2021-05-30 08:19 | Hospitalist Progress Note ---
Date of Service May 30, 2021 Assessment & Plan (1) Hernia: Plan: Ally Thompson is a 75-year-old female with past medical history of DVT, dyslipidemia, CAD, CKD 3, abdominal hernia, depression/anxiety who came to [facility] due to nausea, vomiting, and abdominal pain. She was found to have an infected hematoma in her previously existing abdominal hernia. Infected hematoma in abdominal wall hernia -Now s/p transfusion with 1 unit PRBCs due to acute blood loss anemia in the setting of her hematoma -General surgery consulted no recommendation for surgical intervention currently -Initially treated with IV Zosyn, now on Augmentin 875 mg p.o. twice daily for total of 14 days of antibiotics (today is day 10 out of 14) -Trend CBC -mild abd pain well controlled with Tylenol -Continue to monitor Vomiting -Vomited on 05/27 - one episode. Again 05/29 - one episode. both times when she was sitting up. - ? sec to pain from hematoma/antibiotic side effect/orthostasis/vasovagal symptoms. - Did have positive orthostatics with 20mmHg drop in systolic BP and >10mmHg drop in diastolic BP - Have reached out to surgery team re: possibility of antibiotic discontinuation as she has received 11/14 days and vomiting could be due to abx side effect - Awaiting response, recs appreciated -Vitals stable. Follow closely. Acute blood loss anemia -As above now status post transfusion with 1 unit PRBCs -H&H has been stable since then -Continue to monitor DVT -History of this about 4 months ago -Previously treated with Coumadin, which was held due to blood loss anemia as above -H&H stable since then, 05/26 started on low-dose prophylactic Eliquis at 2.5 mg p.o. daily -Per telephone discussion with Dr. Anderson, reasonable to dose Eliquis for prophylaxis at 2.5 mg twice daily despite patient not completing full 3 month anticoagulation in the setting of her bleed -Continue Eliquis to 2.5 mg p.o. twice daily CKD stage III -Initially had ELDON, likely prerenal due to acute blood loss -Improved back to baseline with transfusion -Follow BMP Open abdominal wound -Continue wound care Weakness -PT/OT consulted -Recommended rehab at [facility] -Initially set up for transfer to [facility] 05/28 but subsequently rejected by facility due to issues with patient's family at previous admission -Placement pending per Case Management -- referrals out to [facility] and [facility] per CM Depression/anxiety -Continue home escitalopram GERD -Continue home famotidine CAD/CHF -Currently well compensated, continue home regimen with spironolactone, furosemide, ASA, cilostazol Gout -Continue home allopurinol, colchicine DVT ppx: Eliquis as above FEN/GI: Heart healthy, famotidine Dispo: Med/Surg, placement at SNF pending Code: FULL CODE (2) Hematoma: (3) DVT (deep venous thrombosis): (4) CKD (chronic kidney disease) stage 3, GFR 30-59 ml/min: (5) CAD (coronary artery disease): (6) GERD (gastroesophageal reflux disease): (7) Hyperlipemia: Admission and Anticipated Discharge Date Admission Date: May 22, 2021 Supervising Physician Co-Signing Physician Notes Resident Physician Supervision Note: I independently interviewed and examined the patient and verified the lance history and physical, reviewed labs and image studies and agree with resident Dr. Batista findings and care plan. Subjective Patient seen at bedside this AM. No acute events overnight. She did have one episode of vomiting yesterday shortly after lunch, when she had gotten up to work with physical therapy. Reports no nausea or vomiting since then. Her mild abdominal pain remains but is well managed with Tylenol. No other complaints or concerns. Review of Systems Review of Systems: Denies fever, chills, CP, palp, cough, SOB, n/v, diarrhea. Physical Exam Physical Exam: GENERAL: A&Ox3. NAD. CHEST/LUNGS: CTAB A/P. No crackles, wheezes, rales, rhonchi. HEART: RRR. No m/g/r. No carotid bruits. ABDOMEN: NT/ND, soft. BS+ x4 EXTREMITIES: No cyanosis, no clubbing, no edema. PSYCHIATRIC: Euthymic affect, no SI, no pressured speech, no hallucinations NEUROLOGIC: No focal neurologic deficits. Results & Data Results & Data ([facility]) Vital Signs (Past 12 Hours) Vital Signs Temp Pulse Pulse Resp BP BP Pulse Ox 05/30/21 07:42 36.3 C L 90 17 156/75 H 95 05/29/21 23:09 36.3 C L 88 17 130/77 96 05/29/21 20:32 36.7 C 100 H 14 135/85 96 05/29/21 20:30 Pulse Ox 05/30/21 07:42 05/29/21 23:09 05/29/21 20:32 05/29/21 20:30 96 Resident Activity Tracking Resident Involvement: Resident Care Provided Care Provided: Adult Hospital Medicine
[2021-05-30] MEDS: AMOXICILLIN/CLAVULANATE 875 MG TAB PO SCH ×2 (09:09→15:53)
[2021-05-30] MEDS: APIXABAN 2.5 MG TAB PO SCH ×2 (09:10→20:56)
[2021-05-30] MEDS: FUROSEMIDE 40 MG TAB PO SCH (09:10)
[2021-05-30] MEDS: ESCITALOPRAM OXALATE 10 MG TAB PO SCH (09:10)
[2021-05-30] MEDS: SPIRONOLACTONE 25 MG TAB PO SCH (09:10)
[2021-05-30] MEDS: COLCHICINE 0.6 MG TAB PO SCH (09:10)
[2021-05-30] MEDS: METOPROLOL TARTRATE 50 MG TAB PO SCH ×2 (09:10→20:56)
[2021-05-30] MEDS: cilostazoL 100 MG TAB PO SCH ×2 (09:11→20:57)
[2021-05-30] MEDS: allopurinoL 300 MG TAB PO SCH (09:11)
[2021-05-30] MEDS: ACETAMINOPHEN 500 MG TAB PO PRN (15:52)
[2021-05-30] MEDS: ONDANSETRON INJ 2 MG/ML 2 ML VIAL IV PRN (16:52)
[2021-05-30] MEDS: SODIUM CHLORIDE 0.9% 1000ML 1,000 ML IV SCH (20:54)
[2021-05-30] MEDS: FAMOTIDINE 40 MG TABLET PO SCH (20:56)
[2021-05-31 06:32] LABS: Basophils # (auto) 0.03 K/uL (0-0.2); Basophils % (auto) 0.4 %; Eosinophils # (auto) 0.13 K/uL (0-0.5); Eosinophils % (auto) 1.7 %; Hematocrit (blood only) 28.2 % (37-47); Hemoglobin 9.2 g/dL (12.0-16.0); Immature Granulocytes # (auto) 0.04 K/uL (0.00-0.02); Immature Granulocytes % (auto) 0.5 %; Lymphocytes # (auto) 0.94 K/uL (1.2-3.4); Mean Corpuscular Hemoglobin 30.6 pg (25-34); Mean Corpuscular Hgb Conc 32.6 g/dL (32-36); Mean Corpuscular Volume 93.7 fL (80-100); Mean Platelet Volume 10.4 fL (7.4-10.4); Monocytes # (auto) 0.97 K/uL (0.11-0.59); Monocytes % (auto) 12.4 %; Neutrophils # (auto) 5.71 K/uL (1.4-6.5); Platelet Count 503 K/uL (130-400); RDW Coefficient of Variation 15.1 % (11.5-14.5); RDW Standard Deviation 51.7 fL (36.4-46.3); Red Blood Count 3.01 M/uL (4.2-5.4); White Blood Count 7.82 K/uL (4.8-10.8)
[2021-05-31 07:08] LABS: BUN Creatinine Ratio 15.8 (10-20); Calcium 9.4 mg/dl (8.5-10.1); Creatinine Clr Calc Pharmacy 32.1 ml/min; Est GFR (African American) 44.3 ml/min; Est GFR (Non-African American) 38.2 ml/min; Potassium 3.5 mmol/L (3.5-5.1)
[2021-05-31] MEDS: ESCITALOPRAM OXALATE 10 MG TAB PO SCH (08:15)
[2021-05-31] MEDS: APIXABAN 2.5 MG TAB PO SCH ×2 (08:15→20:40)
[2021-05-31] MEDS: COLCHICINE 0.6 MG TAB PO SCH (08:15)
[2021-05-31] MEDS: cilostazoL 100 MG TAB PO SCH ×2 (08:16→20:41)
[2021-05-31] MEDS: SPIRONOLACTONE 25 MG TAB PO SCH (08:16)
[2021-05-31] MEDS: METOPROLOL TARTRATE 50 MG TAB PO SCH ×2 (08:16→20:41)
[2021-05-31] MEDS: allopurinoL 300 MG TAB PO SCH (08:16)
[2021-05-31] MEDS: FUROSEMIDE 40 MG TAB PO SCH (08:16)
[2021-05-31] MEDS: SODIUM CHLORIDE 0.9% 1000ML 1,000 ML IV SCH (09:03)
--- NOTE | 2021-05-31 10:26 | Hospitalist Progress Note ---
Date of Service May 31, 2021 Assessment & Plan (1) Hernia: Plan: Ally Thompson is a 75-year-old female with past medical history of DVT, dyslipidemia, CAD, CKD 3, abdominal hernia, depression/anxiety who came to [facility] due to nausea, vomiting, and abdominal pain. She was found to have an infected hematoma in her previously existing abdominal hernia. Infected hematoma in abdominal wall hernia -Now s/p transfusion with 1 unit PRBCs due to acute blood loss anemia in the setting of her hematoma -General surgery consulted no recommendation for surgical intervention currently -Initially treated with IV Zosyn, then transitioned to Augmentin 875mg PO BID -- received 11 total days of abx and stopped as below -Trend CBC -mild abd pain well controlled with Tylenol -Continue to monitor Vomiting -Vomited on 05/27 - one episode. Again 05/29 - one episode. Again 05/30 afternoon. Sitting up all 3 times - ? sec to pain from hematoma/antibiotic side effect/orthostasis/vasovagal symptoms. - Did have positive orthostatics with 20mmHg drop in systolic BP and >10mmHg drop in diastolic BP - Per discussion with surgery, ok to stop abx as this seems likely a side effect of Augmentin -- has loose stool as well for past few days - Improving since stopping Augmentin - Vitals stable. Follow closely. Acute blood loss anemia -As above now status post transfusion with 1 unit PRBCs -H&H has been stable since then -Continue to monitor DVT -History of this about 4 months ago -Previously treated with Coumadin, which was held due to blood loss anemia as above -H&H stable since then, 05/26 started on low-dose prophylactic Eliquis at 2.5 mg p.o. daily -Per telephone discussion with Dr. Anderson, reasonable to dose Eliquis for prophylaxis at 2.5 mg twice daily despite patient not completing full 3 month anticoagulation in the setting of her bleed -Continue Eliquis to 2.5 mg p.o. twice daily CKD stage III -Initially had ELDON, likely prerenal due to acute blood loss -Improved back to baseline with transfusion -Follow BMP Open abdominal wound -Continue wound care Weakness -PT/OT consulted -Recommended rehab at [facility] -Initially set up for transfer to [facility] 05/28 but subsequently rejected by facility due to issues with patient's family at previous admission -Placement pending per Case Management -- referrals out to [facility] and [facility] per CM Depression/anxiety -Continue home escitalopram GERD -Continue home famotidine CAD/CHF -Currently well compensated, continue home regimen with spironolactone, furosemide, ASA, cilostazol Gout -Continue home allopurinol, colchicine DVT ppx: Eliquis as above FEN/GI: Heart healthy, famotidine Dispo: Med/Surg, placement at SNF pending Code: FULL CODE (2) Hematoma: (3) DVT (deep venous thrombosis): (4) CKD (chronic kidney disease) stage 3, GFR 30-59 ml/min: (5) CAD (coronary artery disease): (6) GERD (gastroesophageal reflux disease): (7) Hyperlipemia: Admission and Anticipated Discharge Date Admission Date: May 22, 2021 Supervising Physician Co-Signing Physician Notes Resident Physician Supervision Note: I independently interviewed and examined the patient and verified the lance history and physical, reviewed labs and image studies and agree with resident Dr. Batista findings and care plan. Subjective Patient reports feeling well this morning. No acute events overnight. Her nausea has improved since stopping antibiotic. Tolerated breakfast well. Denies fever, chills, headache, nausea, vomiting, shortness of breath, chest pain, palpitations. Review of Systems Review of Systems: All systems reviewed & are unremarkable except as noted in Subjective Physical Exam Physical Exam: GENERAL: A&Ox3. NAD. CHEST/LUNGS: CTAB A/P. No crackles, wheezes, rales, rhonchi. HEART: RRR. No m/g/r. ABDOMEN: NT/ND, soft. BS+ x4 NEUROLOGIC: No focal neurologic deficits. Results & Data Results & Data ([facility]) Vital Signs (Past 12 Hours) Vital Signs Temp Pulse Resp BP Pulse Ox 05/31/21 07:58 36.3 C L 97 H 16 145/75 H 96 Resident Activity Tracking Resident Involvement: Resident Care Provided Care Provided: Adult Hospital Medicine
[2021-05-31] MEDS: FAMOTIDINE 40 MG TABLET PO SCH (20:40)
[2021-06-01] MEDS: ESCITALOPRAM OXALATE 10 MG TAB PO SCH (08:51)
[2021-06-01] MEDS: allopurinoL 300 MG TAB PO SCH (08:51)
[2021-06-01] MEDS: METOPROLOL TARTRATE 50 MG TAB PO SCH ×2 (08:51→19:46)
[2021-06-01] MEDS: COLCHICINE 0.6 MG TAB PO SCH (08:51)
[2021-06-01] MEDS: FUROSEMIDE 40 MG TAB PO SCH (08:51)
[2021-06-01] MEDS: SPIRONOLACTONE 25 MG TAB PO SCH (08:51)
[2021-06-01] MEDS: APIXABAN 2.5 MG TAB PO SCH ×2 (08:51→19:47)
[2021-06-01] MEDS: cilostazoL 100 MG TAB PO SCH ×2 (08:52→19:47)
--- NOTE | 2021-06-01 10:47 | Hospitalist Progress Note ---
Date of Service June 01, 2021 Assessment & Plan (1) Hernia: Plan: Ally Thompson is a 75-year-old female with past medical history of DVT, dyslipidemia, CAD, CKD 3, abdominal hernia, depression/anxiety who came to [facility] due to nausea, vomiting, and abdominal pain. She was found to have an infected hematoma in her previously existing abdominal hernia. Infected hematoma in abdominal wall hernia -Now s/p transfusion with 1 unit PRBCs due to acute blood loss anemia in the setting of her hematoma -General surgery consulted no recommendation for surgical intervention currently -Initially treated with IV Zosyn, then transitioned to Augmentin 875mg PO BID -- received 11 total days of abx and stopped as below -Trend CBC -mild abd pain well controlled with Tylenol -Continue to monitor Vomiting - improving since stopping Augmentin, no further episodes -Vomited on 05/27 - one episode. Again 05/29 - one episode. Again 05/30 afternoon. Sitting up all 3 times - ? sec to pain from hematoma/antibiotic side effect/orthostasis/vasovagal symptoms. - Did have positive orthostatics with 20mmHg drop in systolic BP and >10mmHg drop in diastolic BP - Per discussion with surgery, ok to stop abx as this seems likely a side effect of Augmentin - Vitals stable. Follow closely. Acute blood loss anemia -As above now status post transfusion with 1 unit PRBCs -H&H has been stable since then -Continue to monitor DVT -History of this about 4 months ago -Previously treated with Coumadin, which was held due to blood loss anemia as a chasity -H&H stable since then, 05/26 started on low-dose prophylactic Eliquis at 2.5 mg p.o. daily -Per telephone discussion with Dr. Anderson, reasonable to dose Eliquis for prophylaxis at 2.5 mg twice daily despite patient not completing full 3 month anticoagulation in the setting of her bleed -Continue Eliquis to 2.5 mg p.o. twice daily CKD stage III -Initially had ELDON, likely prerenal due to acute blood loss -Improved back to baseline Open abdominal wound -Continue wound care Weakness/Deconditioning -PT/OT consulted -Recommended rehab at [facility] -Initially set up for transfer to [facility] 05/28 but subsequently rejected by facility due to issues with patient's family at previous admission -Placement pending per Case Management -- referrals out to [facility] per CM - [facility] unable to take patient until next week, [facility] cannot take over weekend. [facility] to give further info Thursday. Depression/anxiety -Continue home escitalopram GERD -Continue home famotidine CAD/CHF -Currently well compensated, continue home regimen with spironolactone, furosemide, ASA, cilostazol Gout -Continue home allopurinol, colchicine DVT ppx: Eliquis as above FEN/GI: Heart healthy, famotidine Dispo: Med/Surg, placement at SNF pending Code: FULL CODE (2) Hematoma: (3) DVT (deep venous thrombosis): (4) CKD (chronic kidney disease) stage 3, GFR 30-59 ml/min: (5) CAD (coronary artery disease): (6) GERD (gastroesophageal reflux disease): (7) Hyperlipemia: Admission and Anticipated Discharge Date Admission Date: May 22, 2021 Supervising Physician Co-Signing Physician Notes Resident Physician Supervision Note: I independently interviewed and examined the patient and verified the lance history and physical, reviewed labs and image studies and agree with resident Dr. Batista findings and care plan. Subjective Pt seen at bedside this AM. Just finished breakfast without issues. Denies n/v since 05/30. Per RN loose stools less frequently now -- also improving since stopping abx. Otherwise no complaints/concerns. Updated on referral status. Review of Systems Review of Systems: Denies fever, chills, CP, palp, cough, SOB, n/v. Physical Exam Physical Exam: GENERAL: A&Ox3. NAD. CHEST/LUNGS: CTAB A/P. No crackles, wheezes, rales, rhonchi. HEART: RRR. No m/g/r. ABDOMEN: NT/ND, soft. BS+ x4 NEUROLOGIC: No focal neurologic deficits. Results & Data Results & Data ([facility]) Vital Signs (Past 12 Hours) Vital Signs Temp Pulse Resp BP BP Pulse Ox 06/01/21 06:28 36.5 C 93 H 16 145/76 H 98 05/31/21 23:25 36.4 C L 88 16 170/78 H 95 Resident Activity Tracking Resident Involvement: Resident Care Provided Care Provided: Adult Hospital Medicine
[2021-06-01] MEDS: CALCIUM CARBONATE 500 MG CHEWABLE TAB PO PRN (11:59)
[2021-06-01] MEDS: ONDANSETRON INJ 2 MG/ML 2 ML VIAL IV PRN (11:59)
[2021-06-01] MEDS: FAMOTIDINE 40 MG TABLET PO SCH (19:46)
[2021-06-02] MEDS: COLCHICINE 0.6 MG TAB PO SCH (08:45)
[2021-06-02] MEDS: cilostazoL 100 MG TAB PO SCH ×2 (08:46→20:22)
[2021-06-02] MEDS: APIXABAN 2.5 MG TAB PO SCH ×2 (08:46→20:22)
[2021-06-02] MEDS: METOPROLOL TARTRATE 50 MG TAB PO SCH ×2 (08:46→20:22)
[2021-06-02] MEDS: ESCITALOPRAM OXALATE 10 MG TAB PO SCH (08:47)
[2021-06-02] MEDS: FUROSEMIDE 40 MG TAB PO SCH (08:47)
[2021-06-02] MEDS: allopurinoL 300 MG TAB PO SCH (08:48)
[2021-06-02] MEDS: SPIRONOLACTONE 25 MG TAB PO SCH (08:48)
--- NOTE | 2021-06-02 10:12 | Hospitalist Progress Note ---
Date of Service June 02, 2021 Assessment & Plan (1) Hernia: Plan: Ally Thompson is a 75-year-old female with past medical history of DVT, dyslipidemia, CAD, CKD 3, abdominal hernia, depression/anxiety who came to [facility] due to nausea, vomiting, and abdominal pain. She was found to have an infected hematoma in her previously existing abdominal hernia. Infected hematoma in abdominal wall hernia -Now s/p transfusion with 1 unit PRBCs due to acute blood loss anemia in the setting of her hematoma -General surgery consulted no recommendation for surgical intervention currently -Initially treated with IV Zosyn, then transitioned to Augmentin 875mg PO BID -- received 11 total days of abx and stopped as below -Trend CBC -mild abd pain well controlled with Tylenol -Continue to monitor Vomiting - improved since stopping Augmentin, no further episodes -Vomited on 05/27 - one episode. Again 05/29 - one episode. Again 05/30 afternoon. Sitting up all 3 times - ? sec to pain from hematoma/antibiotic side effect/orthostasis/vasovagal symptoms. - Did have positive orthostatics with 20mmHg drop in systolic BP and >10mmHg drop in diastolic BP - to get up slowly. - Per discussion with surgery, ok to stop abx as this seems likely a side effect of Augmentin - Follow closely. Acute blood loss anemia -As above now status post transfusion with 1 unit PRBCs -H&H has been stable since then -Continue to monitor DVT -History of this about 4 months ago -Previously treated with Coumadin, which was held due to blood loss anemia as above -H&H stable since then, 05/26 started on low-dose prophylactic Eliquis at 2.5 mg p.o. daily -Per telephone discussion with Dr. Anderson, reasonable to dose Eliquis for prophylaxis at 2.5 mg twice daily despite patient not completing full 3 month anticoagulation in the setting of her bleed -Continue Eliquis to 2.5 mg p.o. twice daily CKD stage III -Initially had ELDON, likely prerenal due to acute blood loss -Improved back to baseline Open abdominal wound -Continue wound care Weakness/Deconditioning -PT/OT consulted -Recommended rehab at [facility] -Initially set up for transfer to [facility] 05/28 but subsequently rejected by facility due to issues with patient's family at previous admission -Placement pending per Case Management -- referrals out to [facility] per CM - [facility] unable to take patient until next week, [facility] cannot take over weekend. [facility] to give further info Thursday. Depression/anxiety -Continue home escitalopram GERD -Continue home famotidine CAD/CHF -Currently well compensated, continue home regimen with spironolactone, furosemide, ASA, cilostazol Gout -Continue home allopurinol, colchicine DVT ppx: Eliquis as above FEN/GI: Heart healthy, famotidine Dispo: Med/Surg, placement at SNF pending Code: FULL CODE (2) Hematoma: (3) DVT (deep venous thrombosis): (4) CKD (chronic kidney disease) stage 3, GFR 30-59 ml/min: (5) CAD (coronary artery disease): (6) GERD (gastroesophageal reflux disease): (7) Hyperlipemia: Admission and Anticipated Discharge Date Admission Date: May 22, 2021 Supervising Physician Co-Signing Physician Notes Resident Physician Supervision Note: I independently interviewed and examined the patient and verified the lance history and physical, reviewed labs and image studies and agree with resident Dr. Batista findings and care plan. Subjective Patient continues to feel well this AM. Has done well with meals. She denies further n/v. No fever, chills, SOB. Review of Systems Review of Systems: Denies fever, chills, CP, palp, cough, SOB, n/v. Physical Exam 2 Physical Exam: GENERAL: A&Ox3. NAD. CHEST/LUNGS: CTAB A/P. No crackles, wheezes, rales, rhonchi. HEART: RRR. No m/g/r. ABDOMEN: NT/ND, soft. BS+ x4 Results & Data Results & Data ([facility]) Vital Signs (Past 12 Hours) Vital Signs Temp Pulse Resp BP Pulse Ox 06/02/21 07:04 36.5 C 93 H 16 162/85 H 93 06/01/21 22:25 36.4 C L 104 H 16 161/85 H 96 Resident Activity Tracking Resident Involvement: Resident Care Provided Care Provided: Adult Hospital Medicine
[2021-06-02 10:39] LABS: Basophils # (auto) 0.03 K/uL (0-0.2); Basophils % (auto) 0.4 %; Eosinophils # (auto) 0.09 K/uL (0-0.5); Eosinophils % (auto) 1.2 %; Hematocrit (blood only) 30.1 % (37-47); Hemoglobin 9.8 g/dL (12.0-16.0); Immature Granulocytes # (auto) 0.02 K/uL (0.00-0.02); Immature Granulocytes % (auto) 0.3 %; Lymphocytes # (auto) 0.93 K/uL (1.2-3.4); Mean Corpuscular Hemoglobin 30.2 pg (25-34); Mean Corpuscular Hgb Conc 32.6 g/dL (32-36); Mean Corpuscular Volume 92.9 fL (80-100); Monocytes # (auto) 0.76 K/uL (0.11-0.59); Monocytes % (auto) 9.8 %; Neutrophils # (auto) 5.95 K/uL (1.4-6.5); Neutrophils % (auto) 76.3 %; Platelet Count 494 K/uL (130-400); RDW Coefficient of Variation 15.2 % (11.5-14.5); RDW Standard Deviation 52.1 fL (36.4-46.3); Red Blood Count 3.24 M/uL (4.2-5.4); White Blood Count 7.78 K/uL (4.8-10.8)
[2021-06-02] MEDS: FAMOTIDINE 40 MG TABLET PO SCH (20:22)
[2021-06-03] MEDS: allopurinoL 300 MG TAB PO SCH (09:40)
[2021-06-03] MEDS: COLCHICINE 0.6 MG TAB PO SCH (09:40)
[2021-06-03] MEDS: ESCITALOPRAM OXALATE 10 MG TAB PO SCH (09:41)
[2021-06-03] MEDS: FUROSEMIDE 40 MG TAB PO SCH (09:42)
[2021-06-03] MEDS: SPIRONOLACTONE 25 MG TAB PO SCH (09:42)
[2021-06-03] MEDS: METOPROLOL TARTRATE 50 MG TAB PO SCH ×2 (09:43→20:35)
[2021-06-03] MEDS: APIXABAN 2.5 MG TAB PO SCH ×2 (09:43→20:34)
[2021-06-03] MEDS: cilostazoL 100 MG TAB PO SCH ×2 (09:43→20:35)
--- NOTE | 2021-06-03 15:37 | Hospitalist Progress Note ---
Date of Service June 03, 2021 Assessment & Plan (1) Hernia: Plan: Ally Thompson is a 75-year-old female with past medical history of DVT, dyslipidemia, CAD, CKD 3, abdominal hernia, depression/anxiety who came to [facility] due to nausea, vomiting, and abdominal pain. She was found to have an infected hematoma in her previously existing abdominal hernia. Infected hematoma in abdominal wall hernia -Now s/p transfusion with 1 unit PRBCs due to acute blood loss anemia in the setting of her hematoma -General surgery consulted no recommendation for surgical intervention currently -Initially treated with IV Zosyn, then transitioned to Augmentin 875mg PO BID -- received 11 total days of abx and stopped as below -Trend CBC -mild abd pain well controlled with Tylenol, pain is unchanged -Continue to monitor Vomiting - resolved since stopping Augmentin, no further episodes - Vomited on 05/27 - one episode. Again 05/29 - one episode. Again 05/30 afternoon. Sitting up all 3 times - ? sec to pain from hematoma/antibiotic side effect/orthostasis/vasovagal symptoms. - Did have positive orthostatics with 20mmHg drop in systolic BP and >10mmHg drop in diastolic BP - Per discussion with surgery, ok to stop abx as this seems likely a side effect of Augmentin - Vitals stable. Follow closely. Acute blood loss anemia -As above now status post transfusion with 1 unit PRBCs -H&H has been stable since then -Continue to monitor DVT -History of this about 4 months ago -Previously treated with Coumadin, which was held due to blood loss anemia as above -H&H stable since then, 05/26 started on low-dose prophylactic Eliquis at 2.5 mg p.o. daily -Per telephone discussion with Dr. Anderson, reasonable to dose Eliquis for prop hylaxis at 2.5 mg twice daily despite patient not completing full 3 month anticoagulation in the setting of her bleed -Continue Eliquis to 2.5 mg p.o. twice daily CKD stage III -Initially had ELDON, likely prerenal due to acute blood loss -Improved back to baseline Open abdominal wound -Continue wound care Weakness/Deconditioning -PT/OT consulted -Recommended rehab at [facility] -Initially set up for transfer to [facility] 05/28 but subsequently rejected by facility due to issues with patient's family at previous admission -Placement pending per Case Management -- referrals out to [facility] and [facility] per CM. Pending placement. Depression/anxiety -Continue home escitalopram GERD -Continue home famotidine CAD/CHF -Currently well compensated, continue home regimen with spironolactone, furosemide, ASA, cilostazol Gout -Continue home allopurinol, colchicine DVT ppx: Eliquis as above FEN/GI: Heart healthy, famotidine Dispo: Med/Surg, placement at SNF pending Code: FULL CODE (2) Hematoma: (3) DVT (deep venous thrombosis): (4) CKD (chronic kidney disease) stage 3, GFR 30-59 ml/min: (5) CAD (coronary artery disease): (6) GERD (gastroesophageal reflux disease): (7) Hyperlipemia: Admission and Anticipated Discharge Date Admission Date: May 22, 2021 Supervising Physician Co-Signing Physician Notes I personally examined the patient and verified all lance points of history and exam, discussed case, and agree with decision making with Dr Rodríguez Feeling okay. Just waiting on SNF. Discussed with case managementnowhere available yet. Vitals noted, in general she is awake and alert pleasant no distress. HEENT normocephalic atraumatic mucous membranes moist. Breathing unlabored no accessory muscle use good effort. Skin shows no rashes no pallor or icterus. Neuro without focal deficits. Abdominal pain from infected hematoma and hernia sacnow stable. Did require transfusion earlier in hospital stay, now appears very stable. As it relates to her DVTwe have escalated to apixaban 2.5 twice daily doing well on this. Continue to follow. For SNF once approved/bed available. Subjective Patient seen and evaluated at bedside this morning. No acute events overnight. Continues to feel well with no specific acute complaints. Eating well w/o increase in abd pain, nausea, or vomiting. Sleeping well. Denies fever, chills, SOB, CP, leg pain, or leg swelling. Review of Systems Review of Systems: See HPI Physical Exam Physical Exam: GENERAL: No acute distress. Well developed and well nourished. Vital signs reviewed as above. Sitting in chair at bedside. EYES: EOMI. Anicteric sclerae. HENT: Moist mucous membranes. RESPIRATORY: Clear to auscultation bilaterally. No wheezing, rales, or rhonchi. CARDIOVASCULAR: Regular rate and rhythm. No murmurs. ABDOMEN: Soft. Normal bowel sounds. Large ventral hematoma but without tenderness, rigidity, erythema, ecchymosis, or tenderness. EXTREMITIES: No edema. Non-tender. SKIN: Warm, dry. No rashes or lesions. NEUROLOGIC: A/O x3. No focal neurological deficits. PSYCHIATRIC: Cooperative. Appropriate mood and affect. Results & Data Results & Data ([facility]) Vital Signs (Past 12 Hours) Vital Signs Temp Pulse Resp BP Pulse Ox 06/03/21 15:29 36.6 C 96 H 18 142/82 H 95 06/03/21 07:05 36.7 C 93 H 18 148/79 H 93 Resident Activity Tracking Resident Involvement: Resident Care Provided Care Provided: Adult Hospital Medicine
[2021-06-03] MEDS: ONDANSETRON INJ 2 MG/ML 2 ML VIAL IV PRN (17:48)
--- NOTE | 2021-06-03 18:19 | Billing Data ---
Date of Service June 03, 2021 Coding Level of Care Code 92688 Subseq Hosp Care Lvl 2
[2021-06-03] MEDS: FAMOTIDINE 40 MG TABLET PO SCH (20:35)
[2021-06-04] MEDS: cilostazoL 100 MG TAB PO SCH ×2 (09:01→20:20)
[2021-06-04] MEDS: METOPROLOL TARTRATE 50 MG TAB PO SCH ×2 (09:01→20:20)
[2021-06-04] MEDS: APIXABAN 2.5 MG TAB PO SCH ×2 (09:02→20:20)
[2021-06-04] MEDS: COLCHICINE 0.6 MG TAB PO SCH (09:02)
[2021-06-04] MEDS: allopurinoL 300 MG TAB PO SCH (09:03)
[2021-06-04] MEDS: FUROSEMIDE 40 MG TAB PO SCH (09:03)
[2021-06-04] MEDS: SPIRONOLACTONE 25 MG TAB PO SCH (09:03)
[2021-06-04] MEDS: ESCITALOPRAM OXALATE 10 MG TAB PO SCH (09:04)
--- NOTE | 2021-06-04 10:31 | Hospitalist Progress Note ---
Date of Service June 04, 2021 Assessment & Plan (1) Hernia: Plan: Ally Thompson is a 75-year-old female with past medical history of DVT, dyslipidemia, CAD, CKD 3, abdominal hernia, depression/anxiety who came to [facility] due to nausea, vomiting, and abdominal pain. She was found to have an infected hematoma in her previously existing abdominal hernia. Weakness/Deconditioning -PT/OT consulted -Recommended rehab at [facility] -Initially set up for transfer to [facility] 05/28 but subsequently rejected by facility due to issues with patient's family at previous admission -Placement pending per Case Management -- referrals out to [facility] and [facility] per CM. Pending placement. Infected hematoma in abdominal wall hernia -Now s/p transfusion with 1 unit PRBCs due to acute blood loss anemia in the setting of her hematoma -General surgery consulted no recommendation for surgical intervention currently -Initially treated with IV Zosyn, then transitioned to Augmentin 875mg PO BID -- received 11 total days of abx and stopped as below -Mild abd pain well controlled with Tylenol, pain is unchanged -Continue to monitor Vomiting - resolved since stopping Augmentin, no further episodes - Vomited on 05/27 - one episode. Again 05/29 - one episode. Again 05/30 afternoon. Sitting up all 3 times - ? sec to pain from hematoma/antibiotic side effect/orthostasis/vasovagal symptoms. - Did have positive orthostatics with 20mmHg drop in systolic BP and >10mmHg drop in diastolic BP - Per discussion with surgery, ok to stop abx as this seems likely a side effect of Augmentin - Vitals stable. Follow closely. Acute blood loss anemia -As above now status post transfusion with 1 unit PRBCs -H&H has been stable since then -Continue to monitor DVT -History of this about 4 months ago -Previously treated with Coumadin, which was held due to blood loss anemia as above -H&H stable since then, 05/26 started on low-dose prophylactic Eliquis at 2.5 mg p.o. daily -Per telephone discussion with Dr. Anderson, reasonable to dose Eliquis for prophylaxis at 2.5 mg twice daily despite patient not completing full 3 month anticoagulation in the setting of her bleed -Continue Eliquis to 2.5 mg p.o. twice daily CKD stage III -Initially had ELDON, likely prerenal due to acute blood loss -Improved back to baseline Open abdominal wound -Continue wound care Depression/anxiety -Continue home escitalopram GERD -Continue home famotidine CAD/CHF -Currently well compensated, continue home regimen with spironolactone, furosemide, ASA, cilostazol Gout -Continue home allopurinol, colchicine DVT ppx: Eliquis as above FEN/GI: Heart healthy, famotidine Dispo: Med/Surg, placement at SNF pending Code: FULL CODE (2) Hematoma: (3) DVT (deep venous thrombosis): (4) CKD (chronic kidney disease) stage 3, GFR 30-59 ml/min: (5) CAD (coronary artery disease): (6) GERD (gastroesophageal reflux disease): (7) Hyperlipemia: Admission and Anticipated Discharge Date Admission Date: May 22, 2021 Supervising Physician Co-Signing Physician Notes I personally examined the patient and verified all lance points of history and exam, discussed case, and agree with decision making with Dr Rodríguez no new complaints, still waiting on placement approval Vitals noted, in general she is awake and alert pleasant no distress. HEENT normocephalic atraumatic mucous membranes moist. Breathing unlabored no accessory muscle use good effort. Skin shows no rashes no pallor or icterus. Neuro without focal deficits. Abdominal pain from infected hematoma and hernia sacnow stable. Did require transfusion earlier in hospital stay, now appears very stable. As it relates to her DVTwe have escalated to apixaban 2.5 twice daily doing well on this. Continue to follow periodic labs (ordered for tomorrow). For SNF once approved/bed available. Subjective Patient seen and evaluated at bedside this morning. No acute events overnight. No current complaints or concerns. Eating well and sleeping well. Review of Systems Constitutional: no fever and no chills Respiratory: no cough and no dyspnea Cardiovascular: no chest pain Gastrointestinal: no abdominal pain, no nausea and no vomiting Genitourinary: no problem reported Physical Exam Physical Exam: GENERAL: No acute distress. Well developed and well nourished. Vital signs reviewed as above. Sitting in chair at bedside, eating breakfast. EYES: EOMI. Anicteric sclerae. HENT: Moist mucous membranes. RESPIRATORY: No acute respiratory distress. EXTREMITIES: No edema. Non-tender. SKIN: Warm, dry. No rashes or lesions. NEUROLOGIC: A/O x3. PSYCHIATRIC: Cooperative. Appropriate mood and affect. Results & Data Results & Data ([facility]) Vital Signs (Past 12 Hours) Vital Signs Temp Pulse Resp BP Pulse Ox 06/04/21 07:44 36.5 C 95 H 18 147/77 H 96 Resident Activity Tracking Resident Involvement: Resident Care Provided Care Provided: Adult Hospital Medicine
--- NOTE | 2021-06-04 12:46 | Billing Data ---
Date of Service June 04, 2021 Coding Level of Care Code 55169 Subseq Hosp Care Lvl 1
[2021-06-04] MEDS: ACETAMINOPHEN 500 MG TAB PO PRN (14:27)
[2021-06-04] MEDS: FAMOTIDINE 40 MG TABLET PO SCH (20:20)
[2021-06-05 06:12] LABS: Basophils # (auto) 0.01 K/uL (0-0.2); Basophils % (auto) 0.1 %; Eosinophils % (auto) 1.5 %; Hemoglobin 9.5 g/dL (12.0-16.0); Immature Granulocytes # (auto) 0.03 K/uL (0.00-0.02); Immature Granulocytes % (auto) 0.4 %; Lymphocytes % (auto) 14.9 %; Mean Corpuscular Hemoglobin 30.3 pg (25-34); Mean Corpuscular Hgb Conc 32.8 g/dL (32-36); Mean Corpuscular Volume 92.4 fL (80-100); Monocytes # (auto) 0.85 K/uL (0.11-0.59); Monocytes % (auto) 12.7 %; Neutrophils % (auto) 70.4 %; Platelet Count 431 K/uL (130-400); RDW Coefficient of Variation 15.3 % (11.5-14.5); RDW Standard Deviation 51.7 fL (36.4-46.3); Red Blood Count 3.14 M/uL (4.2-5.4); White Blood Count 6.69 K/uL (4.8-10.8)
[2021-06-05 06:53] LABS: Est GFR (African American) 40.3 ml/min; Potassium 3.5 mmol/L (3.5-5.1)
[2021-06-05 06:54] LABS: Calcium 9.9 mg/dl (8.5-10.1); Creatinine Clr Calc Pharmacy 29.7 ml/min; Est GFR (Non-African American) 34.8 ml/min
[2021-06-05] MEDS: COLCHICINE 0.6 MG TAB PO SCH (08:25)
[2021-06-05] MEDS: SPIRONOLACTONE 25 MG TAB PO SCH (08:25)
[2021-06-05] MEDS: FUROSEMIDE 40 MG TAB PO SCH (08:25)
[2021-06-05] MEDS: ESCITALOPRAM OXALATE 10 MG TAB PO SCH (08:25)
[2021-06-05] MEDS: METOPROLOL TARTRATE 50 MG TAB PO SCH ×2 (08:25→20:36)
[2021-06-05] MEDS: cilostazoL 100 MG TAB PO SCH ×2 (08:25→20:36)
[2021-06-05] MEDS: allopurinoL 300 MG TAB PO SCH (08:25)
[2021-06-05] MEDS: APIXABAN 2.5 MG TAB PO SCH ×2 (08:25→20:37)
--- NOTE | 2021-06-05 11:47 | Hospitalist Progress Note ---
Date of Service June 05, 2021 Assessment & Plan (1) Hernia: Plan: Ally Thompson is a 75-year-old female with past medical history of DVT, dyslipidemia, CAD, CKD 3, abdominal hernia, depression/anxiety who came to [facility] due to nausea, vomiting, and abdominal pain. She was found to have an infected hematoma in her previously existing abdominal hernia. Weakness/Deconditioning -PT/OT consulted -Recommended rehab at [facility] -Initially set up for transfer to [facility] 05/28 but subsequently rejected by facility due to issues with patient's family at previous admission -Placement pending per Case Management -- referrals out to [facility] and [facility] per CM. Pending placement. Infected hematoma in abdominal wall hernia -Now s/p transfusion with 1 unit PRBCs due to acute blood loss anemia in the setting of her hematoma -General surgery consulted no recommendation for surgical intervention currently -Initially treated with IV Zosyn, then transitioned to Augmentin 875mg PO BID -- received 11 total days of abx and stopped as below -Mild abd pain well controlled with Tylenol, pain is unchanged -Continue to monitor Vomiting - resolved since stopping Augmentin, no further episodes - Vomited on 05/27 - one episode. Again 05/29 - one episode. Again 05/30 afternoon. Sitting up all 3 times - ? sec to pain from hematoma/antibiotic side effect/orthostasis/vasovagal symptoms. - Did have positive orthostatics with 20mmHg drop in systolic BP and >10mmHg drop in diastolic BP - Per discussion with surgery, ok to stop abx as this seems likely a side effect of Augmentin - Vitals stable. Follow closely. Acute blood loss anemia -As above now status post transfusion with 1 unit PRBCs -H&H has been stable since then -Continue to monitor DVT -History of this about 4 months ago -Previously treated with Coumadin, which was held due to blood loss anemia as above -H&H stable since then, 05/26 started on low-dose prophylactic Eliquis at 2.5 mg p.o. daily -Per telephone discussion with Dr. Anderson, reasonable to dose Eliquis for prophylaxis at 2.5 mg twice daily despite patient not completing full 3 month anticoagulation in the setting of her bleed -Continue Eliquis to 2.5 mg p.o. twice daily CKD stage III -Initially had ELDON, likely prerenal due to acute blood loss -Improved back to baseline Open abdominal wound -Continue wound care Depression/anxiety -Continue home escitalopram GERD -Continue home famotidine CAD/CHF -Currently well compensated, continue home regimen with spironolactone, furosemide, ASA, cilostazol Gout -Continue home allopurinol, colchicine DVT ppx: Eliquis as above FEN/GI: Heart healthy, famotidine Dispo: Med/Surg, placement at SNF pending Code: FULL CODE (2) Hematoma: (3) DVT (deep venous thrombosis): (4) CKD (chronic kidney disease) stage 3, GFR 30-59 ml/min: (5) CAD (coronary artery disease): (6) GERD (gastroesophageal reflux disease): (7) Hyperlipemia: Admission and Anticipated Discharge Date Admission Date: May 22, 2021 Supervising Physician Co-Signing Physician Notes I personally examined the patient and verified all lance points of history and exam, discussed case, and agree with decision making with Dr Rodríguez no new complaints, still struggling to find placement. Fortunately seems to be progressing with PT per discussion with nursing. Vitals noted, in general she is awake and alert pleasant no distress. HEENT normocephalic atraumatic mucous membranes moist. Breathing unlabored no accessory muscle use good effort. Skin shows no rashes no pallor or icterus. Neuro without focal deficits. Abdominal pain from infected hematoma and hernia sacnow stable. Did require transfusion earlier in hospital stay, now appears very stable. As it relates to her DVTwe have escalated to apixaban 2.5 twice daily doing well on this. For SNF once approved/bed available. Subjective Patient seen and evaluated at bedside this morning. No acute events overnight. No current complaints or concerns. Eating well and sleeping well. Still awaiting placement. Denies fever, chills, CP, SOB, change in abd pain, nausea, vomiting, diarrhea, leg pain, leg swelling, CHEN, dizziness, or lightheadedness. Review of Systems Review of Systems: See HPI Physical Exam Physical Exam: GENERAL: No acute distress. Well developed and well nourished. Vital signs reviewed as above. Sitting in chair at bedside, eating breakfast. EYES: EOMI. Anicteric sclerae. HENT: Moist mucous membranes. RESPIRATORY: No acute respiratory distress. EXTREMITIES: No edema. Non-tender. SKIN: Warm, dry. No rashes or lesions. NEUROLOGIC: A/O x3. PSYCHIATRIC: Cooperative. Appropriate mood and affect. Results & Data Results & Data ([facility]) Vital Signs (Past 12 Hours) Vital Signs Temp Pulse Resp BP Pulse Ox 06/05/21 07:58 36.6 C 88 16 154/82 H 96 Resident Activity Tracking Resident Involvement: Resident Care Provided Care Provided: Adult Hospital Medicine
[2021-06-05] MEDS: ONDANSETRON INJ 2 MG/ML 2 ML VIAL IV PRN (13:31)
--- NOTE | 2021-06-05 18:15 | Billing Data ---
Date of Service June 05, 2021 Coding Level of Care Code 02768 Subseq Hosp Care Lvl 1
[2021-06-05] MEDS: FAMOTIDINE 40 MG TABLET PO SCH (20:36)
[2021-06-06] MEDS: METOPROLOL TARTRATE 50 MG TAB PO SCH ×2 (07:58→20:59)
[2021-06-06] MEDS: FUROSEMIDE 40 MG TAB PO SCH (07:58)
[2021-06-06] MEDS: cilostazoL 100 MG TAB PO SCH ×2 (07:58→20:58)
[2021-06-06] MEDS: allopurinoL 300 MG TAB PO SCH (07:58)
[2021-06-06] MEDS: SPIRONOLACTONE 25 MG TAB PO SCH (07:58)
[2021-06-06] MEDS: COLCHICINE 0.6 MG TAB PO SCH (07:58)
[2021-06-06] MEDS: ESCITALOPRAM OXALATE 10 MG TAB PO SCH (07:58)
[2021-06-06] MEDS: APIXABAN 2.5 MG TAB PO SCH ×2 (07:58→20:59)
--- NOTE | 2021-06-06 18:10 | Hospitalist Progress Note ---
Date of Service June 06, 2021 Assessment & Plan (1) Hernia: Plan: Ally Thompson is a 75-year-old female with past medical history of DVT, dyslipidemia, CAD, CKD 3, abdominal hernia, depression/anxiety who came to [facility] due to nausea, vomiting, and abdominal pain. She was found to have an infected hematoma in her previously existing abdominal hernia. Weakness/Deconditioning -PT/OT consulted; continues to recommend rehab at [facility] -Initially set up for transfer to [facility] 05/28 but subsequently rejected by facility due to issues with patient's family at previous admission -Placement pending per Case Management -- referrals out to [facility] and [facility] per . Per , [facility] with no available beds until next week and [facility] currently closed to admission due to COVID outbreak. Patient is pending placement. Infected hematoma in abdominal wall hernia -Received transfusion with 1 unit PRBCs during hospitalization due to acute blood loss anemia in the setting of her hematoma, now resolved -General surgery consulted no indication for surgical intervention -Initially treated with IV Zosyn, then transitioned to Augmentin 875mg PO BID -- received 11 total days of abx and stopped as below -Mild abd pain well controlled with Tylenol, pain is unchanged -Continue to monitor Vomiting - resolved since stopping Augmentin, no further episodes - Vomited on 05/27 - one episode. Again 05/29 - one episode. Again 05/30 afternoon. Sitting up all 3 times - ? sec to pain from hematoma/antibiotic side effect/orthostasis/vasovagal symptoms. - Did have positive orthostatics with 20mmHg drop in systolic BP and >10mmHg drop in diastolic BP - After discussion with surgery, ok to stop abx as this seems likely a side effect of Augmentin - Vitals stable. Continue to monitor. Acute blood loss anemia -As above now status post transfusion with 1 unit PRBCs -H&H has been stable since then -Continue to monitor DVT -History of this about 4 months ago -Previously treated with Coumadin, which was held due to blood loss anemia as above -H&H stable since then, 05/26 started on low-dose prophylactic Eliquis at 2.5 mg p.o. daily -Per telephone discussion with Dr. Anderson, reasonable to dose Eliquis for prophylaxis at 2.5 mg twice daily despite patient not completing full 3 month anticoagulation in the setting of her bleed -Continue Eliquis to 2.5 mg p.o. twice daily CKD stage III -Initially had ELDON, likely prerenal due to acute blood loss -Improved back to baseline Open abdominal wound -Continue wound care Depression/anxiety -Continue home escitalopram GERD -Continue home famotidine CAD/CHF -Currently well compensated, continue home regimen with spironolactone, furosemide, ASA, cilostazol Gout -Continue home allopurinol, colchicine DVT ppx: Eliquis as above FEN/GI: Heart healthy, famotidine Dispo: Med/Surg, placement at SNF pending Code: FULL CODE (2) Hematoma: (3) DVT (deep venous thrombosis): (4) CKD (chronic kidney disease) stage 3, GFR 30-59 ml/min: (5) CAD (coronary artery disease): (6) GERD (gastroesophageal reflux disease): (7) Hyperlipemia: Admission and Anticipated Discharge Date Admission Date: May 22, 2021 Supervising Physician Co-Signing Physician Notes I personally examined the patient and verified all lance points of history and exam, discussed case, and agree with decision making with Dr Rodríguez No new complaints. Placement probably not until next week. Vitals noted, in general she is awake and alert pleasant no distress. HEENT normocephalic atraumatic mucous membranes moist. Breathing unlabored no accessory muscle use good effort. Skin shows no rashes no pallor or icterus. Neuro without focal deficits. Abdominal pain from infected hematoma and hernia sacnow stable. Did require transfusion earlier in hospital stay, now appears very stable. As it relates to her DVTcontinue apixaban 2.5 twice daily, doing well on this. For SNF once approved/bed available. Unfortunately this will likely still be several days out Subjective Patient seen and evaluated at bedside this morning. On evaluation, she was standing out of the bedside chair to ambulate to the bathroom. Per nursing, patient with no acute events overnight. No current complaints or concerns. Eating well and sleeping well. Patient continues to await placement. Review of Systems Review of Systems: See HPI Physical Exam 2 Physical Exam: GENERAL: No acute distress. Vital signs reviewed as above. Ambulating to bathroom with walker/assistive device and nursing staff. EYES: EOMI. HENT: Moist mucous membranes. RESPIRATORY: No acute respiratory distress. NEUROLOGIC: A/O x3. PSYCHIATRIC: Cooperative. Appropriate mood and affect. Results & Data Results & Data ([facility]) Vital Signs (Past 12 Hours) Vital Signs Temp Pulse Resp BP Pulse Ox 06/06/21 15:48 36.7 C 83 16 143/83 H 98 06/06/21 08:18 36.7 C 91 H 16 145/76 H 95 Resident Activity Tracking Resident Involvement: Resident Care Provided Care Provided: Adult Hospital Medicine
--- NOTE | 2021-06-06 20:39 | Billing Data ---
Date of Service June 06, 2021 Coding Level of Care Code 77370 Subseq Hosp Care Lvl 1
[2021-06-06] MEDS: FAMOTIDINE 40 MG TABLET PO SCH (20:58)
[2021-06-07] MEDS: APIXABAN 2.5 MG TAB PO SCH ×2 (07:52→21:29)
[2021-06-07] MEDS: COLCHICINE 0.6 MG TAB PO SCH (07:52)
[2021-06-07] MEDS: ESCITALOPRAM OXALATE 10 MG TAB PO SCH (07:52)
[2021-06-07] MEDS: FUROSEMIDE 40 MG TAB PO SCH (07:53)
[2021-06-07] MEDS: allopurinoL 300 MG TAB PO SCH (07:53)
[2021-06-07] MEDS: SPIRONOLACTONE 25 MG TAB PO SCH (07:53)
[2021-06-07] MEDS: cilostazoL 100 MG TAB PO SCH ×2 (07:53→21:29)
[2021-06-07] MEDS: METOPROLOL TARTRATE 50 MG TAB PO SCH ×2 (07:53→21:28)
[2021-06-07] MEDS: ONDANSETRON INJ 2 MG/ML 2 ML VIAL IV PRN (11:00)
--- NOTE | 2021-06-07 16:25 | Hospitalist Progress Note ---
Date of Service June 07, 2021 Assessment & Plan (1) Hernia: Plan: Ally Thompson is a 75-year-old female with past medical history of DVT, dyslipidemia, CAD, CKD 3, abdominal hernia, depression/anxiety who came to [facility] due to nausea, vomiting, and abdominal pain. She was found to have an infected hematoma in her previously existing abdominal hernia. Weakness/Deconditioning -PT/OT consulted; continues to recommend rehab at [facility] -Initially set up for transfer to [facility] 05/28 but subsequently rejected by facility due to issues with patient's family at previous admission -Placement pending per Case Management -- referrals out to [facility] and [facility] per . Per , [facility] with no available beds until next week and [facility] currently closed to admission due to COVID outbreak. Patient is pending placement. Infected hematoma in abdominal wall hernia -Received transfusion with 1 unit PRBCs during hospitalization due to acute blood loss anemia in the setting of her hematoma, now resolved -General surgery consulted no indication for surgical intervention -Initially treated with IV Zosyn, then transitioned to Augmentin 875mg PO BID -- received 11 total days of abx and stopped as below -Mild abd pain well controlled with Tylenol, pain is unchanged -Continue to monitor Vomiting - resolved since stopping Augmentin, no further episodes - Vomited on 05/27 - one episode. Again 05/29 - one episode. Again 05/30 afternoon. Sitting up all 3 times - ? sec to pain from hematoma/antibiotic side effect/orthostasis/vasovagal symptoms. - Did have positive orthostatics with 20mmHg drop in systolic BP and >10mmHg drop in diastolic BP - After discussion with surgery, ok to stop abx as this seems likely a side effect of Augmentin - Vitals stable. Continue to monitor. Acute blood loss anemia -As above now status post transfusion with 1 unit PRBCs -H&H has been stable since then -Continue to monitor DVT -History of this about 4 months ago -Previously treated with Coumadin, which was held due to blood loss anemia as above -H&H stable since then, 05/26 started on low-dose prophylactic Eliquis at 2.5 mg p.o. daily -Per telephone discussion with Dr. Anderson, reasonable to dose Eliquis for prophylaxis at 2.5 mg twice daily despite patient not completing full 3 month anticoagulation in the setting of her bleed -Continue Eliquis to 2.5 mg p.o. twice daily CKD stage III -Initially had ELDON, likely prerenal due to acute blood loss -Improved back to baseline Open abdominal wound -Continue wound care Depression/anxiety -Continue home escitalopram GERD -Continue home famotidine CAD/CHF -Currently well compensated, continue home regimen with spironolactone, furosemide, ASA, cilostazol Gout -Continue home allopurinol, colchicine DVT ppx: Eliquis as above FEN/GI: Heart healthy, famotidine Dispo: Med/Surg, placement at SNF pending Code: FULL CODE (2) Hematoma: (3) DVT (deep venous thrombosis): (4) CKD (chronic kidney disease) stage 3, GFR 30-59 ml/min: (5) CAD (coronary artery disease): (6) GERD (gastroesophageal reflux disease): (7) Hyperlipemia: Admission and Anticipated Discharge Date Admission Date: May 22, 2021 Supervising Physician Co-Signing Physician Notes I personally examined the patient and verified all lance points of history and exam, discussed case, and agree with decision making with Dr Rodríguez Resting comfortably no distress Vitals noted, in general she is awake and alert pleasant no distress. HEENT normocephalic atraumatic mucous membranes moist. Breathing unlabored no accessory muscle use good effort. Skin shows no rashes no pallor or icterus. Neuro without focal deficits. Abdominal pain from infected hematoma and hernia sacnow stable. Did require transfusion earlier in hospital stay, now appears very stable overall, but noted late in the day a little bit of tachycardiawill follow up a CBC given that its been a few days. As it relates to her DVTcontinue apixaban 2.5 twice daily, doing well on this, of course with deference paid to her hemoglobin on CBC recheck. For SNF once approved/bed available. Unfortunately this will likely still be several days out Subjective Patient seen and evaluated at bedside this morning. She was sitting in bed eating breakfast. No acute events overnight. No current complaints or concerns. States that she is eating well w/o increased abdominal pain, nausea, or vomiting. Review of Systems Review of Systems: See HPI Physical Exam Physical Exam: GENERAL: No acute distress. Vital signs reviewed as above. EYES: EOMI. HENT: Moist mucous membranes. RESPIRATORY: No acute respiratory distress. NEUROLOGIC: A/O x3. PSYCHIATRIC: Cooperative. Appropriate mood and affect. Results & Data Results & Data ([facility]) Vital Signs (Past 12 Hours) Vital Signs Temp Pulse Pulse Resp BP BP Pulse Ox 06/07/21 15:50 36.3 C L 108 H 16 144/85 H 95 06/07/21 06:27 36.6 C 95 H 97 H 18 161/79 H 95 Resident Activity Tracking Resident Involvement: Resident Care Provided Care Provided: Adult Hospital Medicine
[2021-06-07] MEDS: ACETAMINOPHEN 500 MG TAB PO PRN (19:22)
--- NOTE | 2021-06-07 19:59 | Billing Data ---
Date of Service June 07, 2021 Coding Level of Care Code 76687 Subseq Hosp Care Lvl 1
[2021-06-07] MEDS: FAMOTIDINE 40 MG TABLET PO SCH (21:29)
[2021-06-08] MEDS: COLCHICINE 0.6 MG TAB PO SCH (08:26)
[2021-06-08] MEDS: ESCITALOPRAM OXALATE 10 MG TAB PO SCH (08:26)
[2021-06-08] MEDS: METOPROLOL TARTRATE 50 MG TAB PO SCH ×2 (08:27→20:46)
[2021-06-08] MEDS: FUROSEMIDE 40 MG TAB PO SCH (08:27)
[2021-06-08] MEDS: allopurinoL 300 MG TAB PO SCH (08:27)
[2021-06-08] MEDS: cilostazoL 100 MG TAB PO SCH ×2 (08:27→20:47)
[2021-06-08] MEDS: APIXABAN 2.5 MG TAB PO SCH ×2 (08:27→20:47)
[2021-06-08] MEDS: SPIRONOLACTONE 25 MG TAB PO SCH (08:27)
[2021-06-08 08:35] LABS: Basophils # (auto) 0.02 K/uL (0-0.2); Basophils % (auto) 0.3 %; Eosinophils # (auto) 0.13 K/uL (0-0.5); Eosinophils % (auto) 2.2 %; Hematocrit (blood only) 28.1 % (37-47); Hemoglobin 9.3 g/dL (12.0-16.0); Immature Granulocytes # (auto) 0.01 K/uL (0.00-0.02); Immature Granulocytes % (auto) 0.2 %; Lymphocytes # (auto) 0.89 K/uL (1.2-3.4); Lymphocytes % (auto) 15.3 %; Mean Corpuscular Hemoglobin 29.8 pg (25-34); Mean Corpuscular Hgb Conc 33.1 g/dL (32-36); Mean Corpuscular Volume 90.1 fL (80-100); Mean Platelet Volume 10.4 fL (7.4-10.4); Monocytes # (auto) 0.84 K/uL (0.11-0.59); Monocytes % (auto) 14.5 %; Neutrophils # (auto) 3.91 K/uL (1.4-6.5); Neutrophils % (auto) 67.5 %; Platelet Count 385 K/uL (130-400); RDW Coefficient of Variation 15.4 % (11.5-14.5); RDW Standard Deviation 50.8 fL (36.4-46.3); Red Blood Count 3.12 M/uL (4.2-5.4)
[2021-06-08 08:59] LABS: Calcium 9.9 mg/dl (8.5-10.1); Creatinine Clr Calc Pharmacy 29.3 ml/min; Est GFR (African American) 39.7 ml/min; Est GFR (Non-African American) 34.2 ml/min; Potassium 3.4 mmol/L (3.5-5.1)
--- NOTE | 2021-06-08 19:21 | Hospitalist Progress Note ---
Date of Service June 08, 2021 Assessment & Plan (1) Hernia: Plan: Ally Thompson is a 75-year-old female with past medical history of DVT, dyslipidemia, CAD, CKD 3, abdominal hernia, depression/anxiety who came to [facility] due to nausea, vomiting, and abdominal pain. She was found to have an infected hematoma in her previously existing abdominal hernia. Tachycardia auscultates is sinus, no symptoms, labs are stable, other vitals are stable. Check EKG to eval rhythm, otherwise does not seem overly concerning. Weakness/Deconditioning -PT/OT consulted; continues to recommend rehab at [facility] -Initially set up for transfer to [facility] 05/28 but subsequently rejected by facility due to issues with patient's family at previous admission -Placement pending per Case Management -- referrals out to [facility] and [facility] per . Per , [facility] with no available beds until next week and [facility] currently closed to admission due to COVID outbreak. Patient is pending placement. Infected hematoma in abdominal wall hernia with acute blood loss anemia prior in hospitalization -Received transfusion with 1 unit PRBCs during hospitalization due to acute blood loss anemia in the setting of her hematoma, now resolved -Had no need for surgery, resolved nicely with antibiotics. Is now off of antibiotics several days. Abdominal wall wound/ulcerationcontinue local wound care, surgery has noted in discussions that should it require debridement, they will likely go ahead with that whenever they are ready to repair the hernia Vomiting - resolved since stopping Augmentin, no further episodes Acute blood loss anemia -As above now status post transfusion with 1 unit PRBCs -H&H has been stable since then -Continue to monitor DVT -History of this about 4 months ago -Now doing well on low-dose Eliquis, no new clots, but also no new bleeding. CKD stage III -Initially had ELDON, likely prerenal due to acute blood loss -Improved back to baseline Open abdominal wound -Continue wound care Depression/anxiety -Continue home escitalopram GERD -Continue home famotidine CAD/CHF -Currently well compensated, continue home regimen with spironolactone, furosemide, ASA, cilostazol Gout -Continue home allopurinol, colchicine DVT ppx: Eliquis as above FEN/GI: Heart healthy, famotidine Dispo: Med/Surg, placement at [facility] pending Code: FULL CODE (2) Hematoma: (3) DVT (deep venous thrombosis): (4) CKD (chronic kidney disease) stage 3, GFR 30-59 ml/min: (5) CAD (coronary artery disease): (6) GERD (gastroesophageal reflux disease): (7) Hyperlipemia: Admission and Anticipated Discharge Date Admission Date: May 22, 2021 Subjective Feeling fine. No abdominal pain. No new symptoms at all. Generally feels well, just a week, is working hard with therapy and showing progress. Review of Systems Review of Systems: All systems reviewed & are unremarkable except as noted in HPI & below Physical Exam Physical Exam: In general she is awake and alert pleasant no distress. HEENT normocephalic atraumatic mucous membranes moist. Breathing unlabored no accessory muscle use good effort. Skin shows no rashes no pallor or icterus. Cardio is slightly tachycardic regular no rubs murmurs or gallops noted somewhat distant. Neuro without focal deficits. Results & Data Results & Data ([facility]) Vital Signs (Past 12 Hours) Vital Signs Temp Pulse Resp BP Pulse Ox 06/08/21 15:35 98.1 F 112 H 18 163/79 H 98 PG Care Time/CCT Total # of Minutes Spent Total Time Spent with Patient: Total time spent is greater than 50% in coordination of care (as documented) at patient's floor/unit and/or counseling patient: Coding Level of Care Code 36200 Subseq Hosp Care Lvl 2 Diagnoses Hernia K46.9 Hematoma T14.8XXA DVT (deep venous thrombosis) I82.409 CKD (chronic kidney disease) stage 3, GFR 30-59 ml/min N18.3 CAD (coronary artery disease) I25.10 GERD (gastroesophageal reflux disease) K21.9 Hyperlipemia E78.5
[2021-06-08] MEDS: FAMOTIDINE 40 MG TABLET PO SCH (20:46)
[2021-06-09] MEDS: ESCITALOPRAM OXALATE 10 MG TAB PO SCH (08:23)
[2021-06-09] MEDS: APIXABAN 2.5 MG TAB PO SCH ×2 (08:23→20:23)
[2021-06-09] MEDS: COLCHICINE 0.6 MG TAB PO SCH (08:23)
[2021-06-09] MEDS: METOPROLOL TARTRATE 50 MG TAB PO SCH ×2 (08:24→20:23)
[2021-06-09] MEDS: FUROSEMIDE 40 MG TAB PO SCH (08:24)
[2021-06-09] MEDS: allopurinoL 300 MG TAB PO SCH (08:24)
[2021-06-09] MEDS: cilostazoL 100 MG TAB PO SCH ×2 (08:24→20:23)
[2021-06-09] MEDS: SPIRONOLACTONE 25 MG TAB PO SCH (08:24)
--- NOTE | 2021-06-09 16:30 | Hospitalist Progress Note ---
Date of Service June 09, 2021 Assessment & Plan (1) Hernia: Plan: Ally Thompson is a 75-year-old female with past medical history of DVT, dyslipidemia, CAD, CKD 3, abdominal hernia, depression/anxiety who came to [facility] due to nausea, vomiting, and abdominal pain. She was found to have an infected hematoma in her previously existing abdominal hernia. Tachycardia low-grade sinus tach without any other clear-cut reason. Asymptomatic. Monitor periodically. Weakness/Deconditioning -PT/OT consulted; c for rehab at [facility] -Initially set up for transfer to [facility] 05/28 but subsequently rejected by facility due to issues with patient's family at previous admission -Placement pending per Case Management -- referrals out to [facility] and [facility] per . Per , [facility] with no available beds until next week and [facility] currently closed to admission due to COVID outbreak. Patient is pending placement. Infected hematoma in abdominal wall hernia with acute blood loss anemia prior in hospitalization -Received transfusion with 1 unit PRBCs during hospitalization due to acute blood loss anemia in the setting of her hematoma, now resolved -Had no need for surgery, resolved nicely with antibiotics. Is now off of antibiotics several days and appearing stable. Abdominal wall wound/ulcerationcontinue local wound care, surgery has noted in discussions that should it require debridement, they will likely go ahead with that whenever they are ready to repair the hernia Vomiting - resolved since stopping Augmentin, no further episodes Acute blood loss anemia -As above now status post transfusion with 1 unit PRBCs -H&H has been stable since then -Continue to monitor periodically DVT -History of this about 4 months ago -Now doing well on low-dose Eliquis, no new clots, but also no new bleeding. CKD stage III -Initially had ELDON, likely prerenal due to acute blood loss -Improved back to baseline Open abdominal wound -Continue wound care Depression/anxiety -Continue home escitalopram GERD -Continue home famotidine CAD/CHF -Currently well compensated, continue home regimen with spironolactone, furosemide, ASA, cilostazol Gout -Continue home allopurinol, colchicine DVT ppx: Eliquis as above FEN/GI: Heart healthy, famotidine Dispo: Med/Surg, placement at [facility] pending Code: FULL CODE (2) Hematoma: (3) DVT (deep venous thrombosis): (4) CKD (chronic kidney disease) stage 3, GFR 30-59 ml/min: (5) CAD (coronary artery disease): (6) GERD (gastroesophageal reflux disease): (7) Hyperlipemia: Admission and Anticipated Discharge Date Admission Date: May 22, 2021 Subjective Still feeling okay. No pain. Still waiting on placement. Review of Systems Review of Systems: All systems reviewed & are unremarkable except as noted in HPI & below Physical Exam Physical Exam: In general she is awake and alert pleasant no distress. HEENT normocephalic atraumatic mucous membranes moist. Breathing unlabored no accessory muscle use good effort. Skin shows no rashes no pallor or icterus. Neuro without focal deficits. EKG was unchangedsinus with right bundle and first-degree AV block Results & Data Results & Data ([facility]) Vital Signs (Past 12 Hours) Vital Signs Temp Pulse Resp BP Pulse Ox 06/09/21 07:22 98.1 F 91 H 16 146/81 H 94 PG Care Time/CCT Total # of Minutes Spent Total Time Spent with Patient: Total time spent is greater than 50% in coordination of care (as documented) at patient's floor/unit and/or counseling patient: Coding Level of Care Code 29701 Subseq Hosp Care Lvl 1 Diagnoses Hernia K46.9 Hematoma T14.8XXA DVT (deep venous thrombosis) I82.409 CKD (chronic kidney disease) stage 3, GFR 30-59 ml/min N18.3 CAD (coronary artery disease) I25.10 GERD (gastroesophageal reflux disease) K21.9 Hyperlipemia E78.5
--- NOTE | 2021-06-09 19:50 | Electrocardiogram Report ---
Test Reason : Blood Pressure : / mmHG Vent. Rate : 103 BPM Atrial Rate : 103 BPM P-R Int : 200 ms QRS Dur : 128 ms QT Int : 350 ms P-R-T Axes : 085 -50 013 degrees QTc Int : 458 ms Sinus tachycardia Right bundle branch block Left anterior fascicular block Bifascicular block Possible Lateral infarct (cited on or before 03-MAR-2021) Abnormal ECG When compared with ECG of 20-MAY-2021 09:14, No significant change was found Confirmed by Surya Solano ([id number]) on 06/09/2021 7:49:31 PM Referred By: REFERRED SELF Confirmed By:Surya Solano
[2021-06-09] MEDS: FAMOTIDINE 40 MG TABLET PO SCH (20:23)
[2021-06-10] MEDS: METOPROLOL TARTRATE 50 MG TAB PO SCH ×2 (08:05→20:20)
[2021-06-10] MEDS: cilostazoL 100 MG TAB PO SCH ×2 (08:05→20:20)
[2021-06-10] MEDS: FUROSEMIDE 40 MG TAB PO SCH (08:05)
[2021-06-10] MEDS: SPIRONOLACTONE 25 MG TAB PO SCH (08:05)
[2021-06-10] MEDS: APIXABAN 2.5 MG TAB PO SCH ×2 (08:05→20:20)
[2021-06-10] MEDS: COLCHICINE 0.6 MG TAB PO SCH (08:05)
[2021-06-10] MEDS: ESCITALOPRAM OXALATE 10 MG TAB PO SCH (08:05)
[2021-06-10] MEDS: allopurinoL 300 MG TAB PO SCH (08:06)
[2021-06-10] MEDS ORDERED: POTASSIUM CHLORIDE CRTAB 20 MEQ TABCR PO STA (08:14)
[2021-06-10] MEDS: ONDANSETRON INJ 2 MG/ML 2 ML VIAL IV PRN (09:25)
--- NOTE | 2021-06-10 10:38 | Hospitalist Progress Note ---
Date of Service June 10, 2021 Assessment & Plan (1) Hernia: Plan: Ally Thompson is a 75-year-old female with past medical history of DVT, dyslipidemia, CAD, CKD 3, abdominal hernia, depression/anxiety who came to [facility] due to nausea, vomiting, and abdominal pain. She was found to have an infected hematoma in her previously existing abdominal hernia. Tachycardia low-grade sinus tach without any other clear-cut reason. Asymptomatic. Monitor periodically. today basically resolved. Weakness/Deconditioning -PT/OT consulted; c for rehab at SNF -Initially set up for transfer to [facility] 05/28 but subsequently rejected by facility due to issues with patient's family at previous admission -still pending placement, Infected hematoma in abdominal wall hernia with acute blood loss anemia prior in hospitalization -Received transfusion with 1 unit PRBCs during hospitalization due to acute blood loss anemia in the setting of her hematoma, now resolved -Had no need for surgery, resolved nicely with antibiotics. Is now off of antibiotics several days and appearing stable. Abdominal wall wound/ulcerationcontinue local wound care, surgery has noted in discussions that should it require debridement, they will likely go ahead with that whenever they are ready to repair the hernia - while there's no acute toni cation for this emergently, given the unprecedented circmstances surrounding being unable to get her to snf/rehab i did reach out to surgery given that her "pending placement" situation has gone into around when they would have been planning to electively take care of the hernia/wound Vomiting - resolved since stopping Augmentin, no further episodes Acute blood loss anemia -As above now status post transfusion with 1 unit PRBCs -H&H has been stable since then -Continue to monitor periodically DVT -History of this about 4 months ago -Now doing well on low-dose Eliquis, no new clots, but also no new bleeding. If there is any plan for surgery, it would be okay to hold the Eliquis temporarily CKD stage III -Initially had ELDON, likely prerenal due to acute blood loss -Improved back to baseline Open abdominal wound -Continue wound care Depression/anxiety -Continue home escitalopram GERD -Continue home famotidine CAD/CHF -Currently well compensated, continue home regimen with spironolactone, furosemide, ASA, cilostazol Gout -Continue home allopurinol, colchicine DVT ppx: Eliquis as above FEN/GI: Heart healthy, famotidine Dispo: Med/Surg, placement at SNF pending Code: FULL CODE (2) Hematoma: (3) DVT (deep venous thrombosis): (4) CKD (chronic kidney disease) stage 3, GFR 30-59 ml/min: (5) CAD (coronary artery disease): (6) GERD (gastroesophageal reflux disease): (7) Hyperlipemia: Admission and Anticipated Discharge Date Admission Date: May 22, 2021 Subjective No new complaints. Did get out of bed this morning, but notes she was fairly weak. While she is waiting on SNF for rehab, she contemplates going home again, but now seems more aware of how weak she is and fall risk. Encouraged to work as hard as she can with therapy and do as much as she safely can even when therapy is not working with her. Review of Systems Review of Systems: All systems reviewed & are unremarkable except as noted in HPI & below Physical Exam Physical Exam: Vitals noted, in general she is awake and alert pleasant no distress. HEENT normocephalic atraumatic mucous membranes moist. Breathing unlabored no accessory muscle use good effort. Skin shows no rashes no pallor or icterus. Neuro without focal deficits. Results & Data Results & Data ([facility]) Vital Signs (Past 12 Hours) Vital Signs Temp Pulse Resp BP Pulse Ox 06/10/21 07:29 97.9 F 74 16 155/84 H 96 06/09/21 22:47 97.9 F 82 16 132/89 98 PG Care Time/CCT Total # of Minutes Spent Total Time Spent with Patient: Total time spent is greater than 50% in coordination of care (as documented) at patient's floor/unit and/or counseling patient: Coding Level of Care Code 15042 Subseq Hosp Care Lvl 1 Diagnoses Hernia K46.9 Hematoma T14.8XXA DVT (deep venous thrombosis) I82.409 CKD (chronic kidney disease) stage 3, GFR 30-59 ml/min N18.3 CAD (coronary artery disease) I25.10 GERD (gastroesophageal reflux disease) K21.9 Hyperlipemia E78.5
[2021-06-10] MEDS: FAMOTIDINE 40 MG TABLET PO SCH (20:20)
[2021-06-11 06:25] LABS: Basophils # (auto) 0.02 K/uL (0-0.2); Basophils % (auto) 0.3 %; Eosinophils # (auto) 0.19 K/uL (0-0.5); Eosinophils % (auto) 2.8 %; Hematocrit (blood only) 29.2 % (37-47); Hemoglobin 9.5 g/dL (12.0-16.0); Immature Granulocytes # (auto) 0.03 K/uL (0.00-0.02); Immature Granulocytes % (auto) 0.4 %; Lymphocytes # (auto) 1.48 K/uL (1.2-3.4); Lymphocytes % (auto) 21.8 %; Mean Corpuscular Hemoglobin 29.6 pg (25-34); Mean Corpuscular Hgb Conc 32.5 g/dL (32-36); Mean Platelet Volume 10.3 fL (7.4-10.4); Monocytes # (auto) 0.87 K/uL (0.11-0.59); Monocytes % (auto) 12.8 %; Neutrophils # (auto) 4.19 K/uL (1.4-6.5); Neutrophils % (auto) 61.9 %; Platelet Count 376 K/uL (130-400); RDW Coefficient of Variation 15.5 % (11.5-14.5); RDW Standard Deviation 51.8 fL (36.4-46.3); Red Blood Count 3.21 M/uL (4.2-5.4); White Blood Count 6.78 K/uL (4.8-10.8)
[2021-06-11 07:10] LABS: BUN Creatinine Ratio 12.7 (10-20); Calcium 10.2 mg/dl (8.5-10.1); Creatinine Clr Calc Pharmacy 28.2 ml/min; Est GFR (African American) 37.8 ml/min; Est GFR (Non-African American) 32.6 ml/min; Potassium 3.4 mmol/L (3.5-5.1)
[2021-06-11] MEDS: APIXABAN 2.5 MG TAB PO SCH ×2 (08:28→20:36)
[2021-06-11] MEDS: METOPROLOL TARTRATE 50 MG TAB PO SCH ×2 (08:28→20:36)
[2021-06-11] MEDS: cilostazoL 100 MG TAB PO SCH ×2 (08:29→20:36)
[2021-06-11] MEDS: SPIRONOLACTONE 25 MG TAB PO SCH (08:29)
[2021-06-11] MEDS: ESCITALOPRAM OXALATE 10 MG TAB PO SCH (08:29)
[2021-06-11] MEDS: FUROSEMIDE 40 MG TAB PO SCH (08:29)
[2021-06-11] MEDS: allopurinoL 300 MG TAB PO SCH (08:29)
[2021-06-11] MEDS: COLCHICINE 0.6 MG TAB PO SCH (08:30)
--- NOTE | 2021-06-11 10:56 | Surgery Progress Note ---
Date of Service June 11, 2021 Assessment & Plan (1) Abdominal hernia: Plan: Clearly this is a hernia that will need to be repaired as I do not think she can reasonably live with this as is. I do have some concerns with her overall deconditioning malnutrition etc. She has not been doing great with physical therapy. It appears as though the infected hematoma has dramatically improved and she is exhibiting no signs of current infection. This would be a multi hour surgery requiring possibly component separation and a biologic mesh as well as debridement of her small open wound in the left lower quadrant. She would be at least a moderate possibly high postoperative risk for complications considering her comorbidities. While there is nothing urgent currently about the hernia, I am wondering how much more we can optimize her if we delay surgery. 1 thing I want to do is order an albumin and prealbumin. Her most recent one was about 3 weeks ago and was low. If her prealbumin and albumin are showing signs of malnutrition I would probably put the surgery on hold for several weeks until we can optimize this. If her nutritional labs are reasonable we would need to hold her blood thinners for several days and probably anticipate surgery next week. I did discuss the surgery briefly with her and she would like to have it repaired if possible while she is here. I will discuss with her either tomorrow or pending the results of the lab work. I will also discussed with the primary service. (2) Open abdominal wall wound: (3) CKD (chronic kidney disease) stage 3, GFR 30-59 ml/min: (4) CAD (coronary artery disease): Admission and Anticipated Discharge Date Admission Date: May 22, 2021 Subjective Patient still in hospital awaiting transfer to rehab facility when bed are available. Asked by primary service to reevaluate for possible hernia repair while in the hospital. She has been eating okay and her bowels have been moving. The hernia does bother her intermittently with certain activities. She currently does not have signs and symptoms of a bowel obstruction or bowel injury. Physical Exam Constitutional: WD/WN, vitals as above no acute distress and not ill appearing Eyes: PERRL, conjunctivae normal, anicteric sclerae EOM intact bilaterally ENMT: external ear and nose normal, oropharynx normal Ears: no hearing impairment Neck: trachea midline, no thyromegaly Respiratory: normal respiratory effort; no respiratory distress and does not use accessory muscles Cardiovascular: Rate/Rhythm: regular rate and regular rhythm Gastrointestinal (Abdomen): Soft. Minimally tender. Large lower abdominal central hernia. Too large to reduce. No skin color changes. Clinically the hernia has slightly increased in size since I last seen her. Skin: no rashes, warm and dry Psychiatric: Orientation: alert, oriented x 3 and cooperative Results & Data ([facility]) Vital Signs (Past 12 Hours) Vital Signs Temp Pulse Resp BP Pulse Ox 06/11/21 07:24 36.7 C 88 18 155/81 H 96 PG Care Time/CCT Total # of Minutes Spent Total Time Spent with Patient: Total time spent is greater than 50% in co ordination of care (as documented) at patient's floor/unit and/or counseling patient: Coding Level of Care Code 22291 Subseq Hosp Care Lvl 3 Diagnoses Abdominal hernia K46.9 Open abdominal wall wound S31.109A CKD (chronic kidney disease) stage 3, GFR 30-59 ml/min N18.3 CAD (coronary artery disease) I25.10
--- NOTE | 2021-06-11 20:18 | Hospitalist Progress Note ---
Date of Service June 11, 2021 Assessment & Plan (1) Hernia: Plan: Ally Thompson is a 75-year-old female with past medical history of DVT, dyslipidemia, CAD, CKD 3, abdominal hernia, depression/anxiety who came to [facility] due to nausea, vomiting, and abdominal pain. She was found to have an infected hematoma in her previously existing abdominal hernia. Tachycardia low-grade sinus tach without any other clear-cut reason. Asymptomatic. Monitor periodically. today basically resolved. Weakness/Deconditioning -PT/OT consulted; c for rehab at SNF -Initially set up for transfer to [facility] 05/28 but subsequently rejected by facility due to issues with patient's family at previous admission -still pending placement, -surgery is looking into perhaps operating the hernia and will recheck her albumin level in the AM. Infected hematoma in abdominal wall hernia with acute blood loss anemia prior in hospitalization -Received transfusion with 1 unit PRBCs during hospitalization due to acute blood loss anemia in the setting of her hematoma, now resolved -Had no need for surgery, resolved nicely with antibiotics. Is now off of antibiotics several days and appearing stable. Abdominal wall wound/ulcerationcontinue local wound care, surgery has noted in discussions that should it require debridement, they will likely go ahead with that whenever they are ready to repair the hernia - while there's no acute indication for this emergently, given the unprecedented circmstances surrounding being unable to get her to snf/rehab i did reach out to surgery given that her "pending placement" situation has gone into around when they would have been planning to electively take care of the hernia/wound Vomiting - resolved since stopping Augmentin, no further episodes Acute blood loss anemia -As above now status post transfusion with 1 unit PRBCs -H&H has been stable since then -Continue to monitor periodically DVT -History of this about 4 months ago -Now doing well on low-dose Eliquis, no new clots, but also no new bleeding. If there is any plan for surgery, it would be okay to hold the Eliquis temporarily CKD stage III -Initially had ELDON, likely prerenal due to acute blood loss -Improved back to baseline Open abdominal wound -Continue wound care Depression/anxiety -Continue home escitalopram GERD -Continue home famotidine CAD/CHF -Currently well compensated, continue home regimen with spironolactone, furosemide, ASA, cilostazol Gout -Continue home allopurinol, colchicine DVT ppx: Eliquis as above FEN/GI: Heart healthy, famotidine Dispo: Med/Surg, placement at SNF pending Code: FULL CODE (2) Hematoma: (3) DVT (deep venous thrombosis): (4) CKD (chronic kidney disease) stage 3, GFR 30-59 ml/min: (5) CAD (coronary artery disease): (6) GERD (gastroesophageal reflux disease): (7) Hyperlipemia: Admission and Anticipated Discharge Date Admission Date: May 22, 2021 Subjective 75 yo female reports no new symptoms today. Review of Systems Review of Systems: All systems reviewed & are unremarkable except as noted in HPI & below Physical Exam Physical Exam: GENERAL: No acute distress. Vital signs reviewed as above. Ambulating to bathroom with walker/assistive device and nursing staff. EYES: EOMI. HENT: Moist mucous membranes. RESPIRATORY: No acute respiratory distress. NEUROLOGIC: A/O x3. PSYCHIATRIC: Cooperative. Appropriate mood and affect. Results & Data Results & Data ([facility]) Vital Signs (Past 12 Hours) Vital Signs Temp Pulse Resp BP Pulse Ox 06/11/21 14:28 37.1 C 115 H 18 175/91 H 96 PG Care Time/CCT Total # of Minutes Spent Total Time Spent with Patient: Total time spent is greater than 50% in coordination of care (as documented) at patient's floor/unit and/or counseling patient: Coding Level of Care Code 40571 Subseq Hosp Care Lvl 2 Diagnoses Hernia K46.9 Hematoma T14.8XXA DVT (deep venous thrombosis) I82.409 CKD (chronic kidney disease) stage 3, GFR 30-59 ml/min N18.3 CAD (coronary artery disease) I25.10 GERD (gastroesophageal reflux disease) K21.9 Hyperlipemia E78.5
[2021-06-11] MEDS: POTASSIUM CHLORIDE CRTAB 20 MEQ TABCR PO SCH (20:36)
[2021-06-11] MEDS: FAMOTIDINE 40 MG TABLET PO SCH (20:36)
[2021-06-12 07:11] LABS: Prealbumin 8.6 mg/dl (20-40)
[2021-06-12 09:00] LABS: BUN Creatinine Ratio 13.7 (10-20); Bilirubin Direct 0.1 mg/dl (0-0.2); Bilirubin,Total 0.5 mg/dl (0.2-1); Creatinine Clr Calc Pharmacy 27.8 ml/min; Est GFR (African American) 37.3 ml/min; Est GFR (Non-African American) 32.1 ml/min; Potassium 3.6 mmol/L (3.5-5.1)
[2021-06-12] MEDS: ESCITALOPRAM OXALATE 10 MG TAB PO SCH (09:02)
[2021-06-12] MEDS: SPIRONOLACTONE 25 MG TAB PO SCH (09:02)
[2021-06-12] MEDS: POTASSIUM CHLORIDE CRTAB 20 MEQ TABCR PO SCH ×2 (09:02→20:34)
[2021-06-12] MEDS: METOPROLOL TARTRATE 50 MG TAB PO SCH ×2 (09:03→20:35)
[2021-06-12] MEDS: FUROSEMIDE 40 MG TAB PO SCH (09:03)
[2021-06-12] MEDS: APIXABAN 2.5 MG TAB PO SCH ×2 (09:03→20:34)
[2021-06-12] MEDS: cilostazoL 100 MG TAB PO SCH ×2 (09:03→20:34)
[2021-06-12] MEDS: allopurinoL 300 MG TAB PO SCH (09:03)
[2021-06-12] MEDS: COLCHICINE 0.6 MG TAB PO SCH (09:03)
[2021-06-12] MEDS: ACETAMINOPHEN 500 MG TAB PO PRN (12:28)
[2021-06-12] MEDS: FAMOTIDINE 40 MG TABLET PO SCH (20:34)
--- NOTE | 2021-06-12 20:59 | Hospitalist Progress Note ---
Date of Service June 12, 2021 Assessment & Plan (1) Hernia: Plan: Ally Thompson is a 75-year-old female with past medical history of DVT, dyslipidemia, CAD, CKD 3, abdominal hernia, depression/anxiety who came to [facility] due to nausea, vomiting, and abdominal pain. She was found to have an infected hematoma in her previously existing abdominal hernia. Tachycardia low-grade sinus tach without any other clear-cut reason. Asymptomatic. Monitor periodically. today basically resolved. Weakness/Deconditioning -PT/OT consulted; c for rehab at SNF -Initially set up for transfer to [facility] 05/28 but subsequently rejected by facility due to issues with patient's family at previous admission -still pending placement, -surgery is looking into perhaps operating the hernia and if albumin level was normal. This will likely be postponed as albumin level was low. Infected hematoma in abdominal wall hernia with acute blood loss anemia prior in hospitalization -Received transfusion with 1 unit PRBCs during hospitalization due to acute blood loss anemia in the setting of her hematoma, now resolved -Had no need for surgery, resolved nicely with antibiotics. Is now off of antibiotics several days and appearing stable. Abdominal wall wound/ulcerationcontinue local wound care, surgery has noted in discussions that should it require debridement, they will likely go ahead with that whenever they are ready to repair the hernia - while there's no acute indication for this emergently, given the unprecedented circmstances surrounding being unable to get her to snf/rehab i did reach out to surgery given that her "pending placement" situation has gone into around when they would have been planning to electively take care of the hernia/wound Vomiting - resolved since stopping Augmentin, no further episodes Acute blood loss anemia -As above now status post transfusion with 1 unit PRBCs -H&H has been stable since then -Continue to monitor periodically DVT -History of this about 4 months ago -Now doing well on low-dose Eliquis, no new clots, but also no new bleeding. If there is any plan for surgery, it would be okay to hold the Eliquis temporarily CKD stage III -Initially had ELDON, likely prerenal due to acute blood loss -Improved back to baseline Open abdominal wound -Continue wound care Depression/anxiety -Continue home escitalopram GERD -Continue home famotidine CAD/CHF -Currently well compensated, continue home regimen with spironolactone, furosemide, ASA, cilostazol Gout -Continue home allopurinol, colchicine DVT ppx: Eliquis as above FEN/GI: Heart healthy, famotidine Dispo: Med/Surg, placement at SNF pending Code: FULL CODE (2) Hematoma: (3) DVT (deep venous thrombosis): (4) CKD (chronic kidney disease) stage 3, GFR 30-59 ml/min: (5) CAD (coronary artery disease): (6) GERD (gastroesophageal reflux disease): (7) Hyperlipemia: Admission and Anticipated Discharge Date Admission Date: May 22, 2021 Subjective Patient reports no new symptoms. Updated daughter on the phone. Answered all of her questions Review of Systems Review of Systems: All systems reviewed & are unremarkable except as noted in HPI & below Physical Exam Physical Exam: GENERAL: No acute distress. Vital signs reviewed as above. Ambulating to bathroom with walker/assistive device and nursing staff. EYES: EOMI. HENT: Moist mucous membranes. RESPIRATORY: No acute respiratory distress. NEUROLOGIC: A/O x3. PSYCHIATRIC: Cooperative. Appropriate mood and affect. Results & Data Results & Data ([facility]) Vital Signs (Past 12 Hours) Vital Signs Temp Pulse Resp BP BP Pulse Ox 06/12/21 20:35 36.6 C 93 H 16 178/98 H 92 06/12/21 14:50 36.5 C 83 16 132/75 96 PG Care Time/CCT Total # of Minutes Spent Total Time Spent with Patient: Total time spent is greater than 50% in coordination of care (as documented) at patient's floor/unit and/or counseling patient: Coding Level of Care Code 20515 Subseq Hosp Care Lvl 3 Diagnoses Hernia K46.9 Hematoma T14.8XXA DVT (deep venous thrombosis) I82.409 CKD (chronic kidney disease) stage 3, GFR 30-59 ml/min N18.3 CAD (coronary artery disease) I25.10 GERD (gastroesophageal reflux disease) K21.9 Hyperlipemia E78.5 Time Spent (min) 35
[2021-06-13] MEDS: ESCITALOPRAM OXALATE 10 MG TAB PO SCH (08:42)
[2021-06-13] MEDS: POTASSIUM CHLORIDE CRTAB 20 MEQ TABCR PO SCH ×2 (08:42→22:06)
[2021-06-13] MEDS: COLCHICINE 0.6 MG TAB PO SCH (08:42)
[2021-06-13] MEDS: APIXABAN 2.5 MG TAB PO SCH ×2 (08:42→22:07)
[2021-06-13] MEDS: cilostazoL 100 MG TAB PO SCH ×2 (08:43→22:05)
[2021-06-13] MEDS: SPIRONOLACTONE 25 MG TAB PO SCH (08:43)
[2021-06-13] MEDS: FUROSEMIDE 40 MG TAB PO SCH (08:43)
[2021-06-13] MEDS: allopurinoL 300 MG TAB PO SCH (08:43)
[2021-06-13] MEDS: METOPROLOL TARTRATE 50 MG TAB PO SCH ×2 (08:43→22:06)
--- NOTE | 2021-06-13 20:45 | Hospitalist Progress Note ---
Date of Service June 13, 2021 Assessment & Plan (1) Hernia: Plan: Ally Thompson is a 75-year-old female with past medical history of DVT, dyslipidemia, CAD, CKD 3, abdominal hernia, depression/anxiety who came to [facility] due to nausea, vomiting, and abdominal pain. She was found to have an infected hematoma in her previously existing abdominal hernia. Tachycardia low-grade sinus tach without any other clear-cut reason. Asymptomatic. Monitor periodically. today basically resolved. Weakness/Deconditioning -PT/OT consulted; c for rehab at SNF -Initially set up for transfer to [facility] 05/28 but subsequently rejected by facility due to issues with patient's family at previous admission -still pending placement, -surgery is looking into perhaps operating the hernia and if albumin level was normal. This will likely be postponed as albumin level was low. Infected hematoma in abdominal wall hernia with acute blood loss anemia prior in hospitalization -Received transfusion with 1 unit PRBCs during hospitalization due to acute blood loss anemia in the setting of her hematoma, now resolved -Had no need for surgery, resolved nicely with antibiotics. Is now off of antibiotics several days and appearing stable. Abdominal wall wound/ulcerationcontinue local wound care, surgery has noted in discussions that should it require debridement, they will likely go ahead with that whenever they are ready to repair the hernia - while there's no acute indication for this emergently, given the unprecedented circmstances surrounding being unable to get her to snf/rehab i did reach out to surgery given that her "pending placement" situation has gone into around when they would have been planning to electively take care of the hernia/wound Vomiting - resolved since stopping Augmentin, no further episodes Acute blood loss anemia -As above now status post transfusion with 1 unit PRBCs -H&H has been stable since then -Continue to monitor periodically DVT -History of this about 4 months ago -Now doing well on low-dose Eliquis, no new clots, but also no new bleeding. If there is any plan for surgery, it would be okay to hold the Eliquis temporarily CKD stage III -Initially had ELDON, likely prerenal due to acute blood loss -Improved back to baseline Open abdominal wound -Continue wound care Depression/anxiety -Continue home escitalopram GERD -Continue home famotidine CAD/CHF -Currently well compensated, continue home regimen with spironolactone, furosemide, ASA, cilostazol Gout -Continue home allopurinol, colchicine DVT ppx: Eliquis as above FEN/GI: Heart healthy, famotidine Dispo: Med/Surg, placement at SNF pending Code: FULL CODE (2) Hematoma: (3) DVT (deep venous thrombosis): (4) CKD (chronic kidney disease) stage 3, GFR 30-59 ml/min: (5) CAD (coronary artery disease): (6) GERD (gastroesophageal reflux disease): (7) Hyperlipemia: Admission and Anticipated Discharge Date Admission Date: May 22, 2021 Subjective 75 yo female reports no new complaints. Review of Systems Review of Systems: All systems reviewed & are unremarkable except as noted in HPI & below Physical Exam Physical Exam: GENERAL: No acute distress. Vital signs reviewed as above. Ambulating to bathroom with walker/assistive device and nursing staff. EYES: EOMI. HENT: Moist mucous membranes. RESPIRATORY: No acute respiratory distress. NEUROLOGIC: A/O x3. PSYCHIATRIC: Cooperative. Appropriate mood and affect. Results & Data Results & Data ([facility]) Vital Signs (Past 12 Hours) Vital Signs Temp Pulse Pulse Pulse Resp BP BP 06/13/21 15:25 36.6 C 91 H 16 158/91 H 06/13/21 13:42 36.9 C 101 H 98 H 81 16 132/75 154/83 H 06/13/21 09:49 36.9 C 81 16 154/83 H Pulse Ox 06/13/21 15:25 96 06/13/21 13:42 94 06/13/21 09:49 94 PG Care Time/CCT Total # of Minutes Spent Total Time Spent with Patient: Total time spent is greater than 50% in coordination of care (as documented) at patient's floor/unit and/or counseling patient: Coding Level of Care Code 86726 Subseq Hosp Care Lvl 2 Diagnoses Hernia K46.9 Hematoma T14.8XXA DVT (deep venous thrombosis) I82.409 CKD (chronic kidney disease) stage 3, GFR 30-59 ml/min N18.3 CAD (coronary artery disease) I25.10 GERD (gastroesophageal reflux disease) K21.9 Hyperlipemia E78.5
[2021-06-13] MEDS: ONDANSETRON INJ 2 MG/ML 2 ML VIAL IV PRN (21:45)
[2021-06-13] MEDS: FAMOTIDINE 40 MG TABLET PO SCH (22:07)
--- NOTE | 2021-06-14 08:28 | Surgery Progress Note ---
Date of Service June 14, 2021 Assessment & Plan (1) Abdominal hernia: Plan: repair is not currently urgent or emergent pt high risk with poor nutritional indices. nutritional supplements ordered would recheck pre-albumin and albumin in 4 weeks and reassess timing of repair would like to see in office after d/c Admission and Anticipated Discharge Date Admission Date: May 22, 2021 Subjective pt seen. 06/13/2021 but forgot to document....pt had no clinical changes. Physical Exam Constitutional: WD/WN, vitals as above no acute distress and not ill appearing Eyes: PERRL, conjunctivae normal, anicteric sclerae EOM intact bilaterally ENMT: external ear and nose normal, oropharynx normal Ears: no hearing impairment Neck: trachea midline, no thyromegaly Respiratory: normal respiratory effort; no respiratory distress and does not use accessory muscles Cardiovascular: Rate/Rhythm: regular rate and regular rhythm Gastrointestinal (Abdomen): soft. +obvious large lower abdominal hernia. no skin color changes. minimal tenderness. Skin: no rashes, warm and dry Psychiatric: Orientation: alert, oriented x 3 and cooperative Results & Data ([facility]) Vital Signs (Past 12 Hours) Vital Signs Temp Pulse Resp BP BP Pulse Ox 06/14/21 07:10 36.4 C L 86 16 163/81 H 95 06/13/21 22:01 36.7 C 99 H 16 164/103 H 97 PG Care Time/CCT Total # of Minutes Spent Total Time Spent with Patient: Total time spent is greater than 50% in coordination of care (as documented) at patient's floor/unit and/or counseling patient: Coding Level of Care Code 55060 Subseq Hosp Care Lvl 3 Diagnoses Abdominal hernia K46.9
[2021-06-14] MEDS ORDERED: PROCHLORPERAZINE 5 MG in SYRINGE 4 ML IV PRN (09:23)
[2021-06-14] MEDS: METOPROLOL TARTRATE 50 MG TAB PO SCH (09:30)
[2021-06-14] MEDS: FUROSEMIDE 40 MG TAB PO SCH (09:30)
[2021-06-14] MEDS: cilostazoL 100 MG TAB PO SCH (09:30)
[2021-06-14] MEDS: allopurinoL 300 MG TAB PO SCH (09:30)
[2021-06-14] MEDS: SPIRONOLACTONE 25 MG TAB PO SCH (09:30)
[2021-06-14] MEDS: POTASSIUM CHLORIDE CRTAB 20 MEQ TABCR PO SCH (09:30)
[2021-06-14] MEDS: APIXABAN 2.5 MG TAB PO SCH (09:31)
[2021-06-14] MEDS: ESCITALOPRAM OXALATE 10 MG TAB PO SCH (09:31)
[2021-06-14] MEDS: COLCHICINE 0.6 MG TAB PO SCH (09:31)
[2021-06-14] MEDS ORDERED: PROCHLORPERAZINE MALEATE 5 MG TAB PO ONE (09:45)
--- NOTE | 2021-06-16 07:26 | Discharge Summary ---
Date of Service June 14, 2021 Principal Diagnosis hernia Discharge Exam GENERAL: No acute distress. Vital signs reviewed as above. Ambulating to bathroom with walker/assistive device and nursing staff. EYES: EOMI. HENT: Moist mucous membranes. RESPIRATORY: No acute respiratory distress. NEUROLOGIC: A/O x3. PSYCHIATRIC: Cooperative. Appropriate mood and affect. Discharge Data Allergies Allergy/AdvReac Type Severity Reaction Status Date / Time Sulfa (Sulfonamide Allergy Mild skin turns Verified 05/20/21 09:59 Antibiotics) red, itchy, throat swelling sulfamethoxazole Allergy Mild skin turns Verified 05/20/21 09:59 red trimethoprim Allergy Mild skin turns Verified 05/20/21 09:59 red atorvastatin Allergy Verified 05/20/21 09:59 grass pollen Allergy Verified 05/20/21 09:59 latex Allergy unsure ?? Verified 05/20/21 09:59 Consultations 05/20/21 15:08 ED Decision to Admit Stat 05/20/21 16:20 Consult General Surgery Routine Ordered Studies 05/20/21 10:34 CT abd pelvis oral con only Stat 05/20/21 16:20 US venous doppler LE Routine Hospital Course (1) Hernia: Ally Thompson is a 75-year-old female with past medical history of DVT, dyslipidemia, CAD, CKD 3, abdominal hernia, depression/anxiety who came to [facility] due to nausea, vomiting, and abdominal pain. She was found to have an infected hematoma in her previously existing abdominal hernia. Tachycardia low-grade sinus tach without any other clear-cut reason. Asymptomatic. Monitor periodically. today basically resolved. Weakness/Deconditioning -PT/OT consulted; c for rehab at [facility] -Initially set up for transfer to [facility] 05/28 but subsequently rejected by facility due to issues with patient's family at previous admission -still pending placement, -surgery is looking into perhaps operating the hernia and if albumin level was normal. This will likely be postponed as albumin level was low. Family is also undecided if they will persue surgery or not. Plan is to have patient improve her diet, have her albumin level increase and then reassess. Appreciate input from Gen Surgery: repair is not currently urgent or emergent pt high risk with poor nutritional indices. nutritional supplements ordered would recheck pre-albumin and albumin in 4 weeks and reassess timing of repair would like to see in office after d/c Infected hematoma in abdominal wall hernia with acute blood loss anemia prior in hospitalization -Received transfusion with 1 unit PRBCs during hospitalization due to acute blood loss anemia in the setting of her hematoma, now resolved -Had no need for surgery, resolved nicely with antibiotics. Is now off of antibiotics several days and appearing stable. Abdominal wall wound/ulcerationcontinue local wound care, surgery has noted in discussions that should it require debridement, they will likely go ahead with that whenever they are ready to repair the hernia - while there's no acute indication for this emergently, given the unprecedented circmstances surrounding being unable to get her to snf/rehab i did reach out to surgery given that her "pending placement" situation has gone into around when they would have been planning to electively take care of the hernia/wound Vomiting - resolved since stopping Augmentin, no further episodes Acute blood loss anemia -As above now status post transfusion with 1 unit PRBCs -H&H has been stable since then -Continue to monitor periodically DVT -History of this about 4 months ago -Now doing well on low-dose Eliquis, no new clots, but also no new bleeding. If there is any plan for surgery, it would be okay to hold the Eliquis temporarily CKD stage III -Initially had ELDON, likely prerenal due to acute blood loss -Improved back to baseline Open abdominal wound -Continue wound care Depression/anxiety -Continue home escitalopram GERD -Continue home famotidine CAD/CHF -Currently well compensated, continue home regimen with spironolactone, furosemide, ASA, cilostazol Gout -Continue home allopurinol, colchicine DVT ppx: Eliquis as above FEN/GI: Heart healthy, famotidine Dispo: Med/Surg, placement at SNF pending Code: FULL CODE (2) Hematoma: (3) DVT (deep venous thrombosis): (4) CKD (chronic kidney disease) stage 3, GFR 30-59 ml/min: (5) CAD (coronary artery disease): (6) GERD (gastroesophageal reflux disease): (7) Hyperlipemia: Total Time Total Time Spent Total Time Spent (In Minutes): 32 Discharge Plan Discharge Items Patient Disposition: Transfer Jail Fac Reason For Visit: HERNIA, ANEMIA Discharge Diagnosis: Hernia, acute blood loss anemia Activity: Per Instructions section Non-emergency contact: Primary Care Provider and Surgeon Call non-emergency contact if: you have any medication questions Follow-up/Referrals: Sabina Lilly MD [Primary Care Provider] - Rishi Vásquez, [Surgeon] - (Please call to schedule in 1-2 weeks to discuss hernia repair) Diet: Heart Healthy Addtl Attending Provider Instructions: Acute blood loss anemia/bleeding into herniafortunately this has been stable. Restarted anticoagulation at prophylaxis dosing (given the DVT was only about 4 months agomost recent Dopplers are negative, but with recent clot and immobility, patient would be high risk for forming a new clot) -Please continue anticoagulation with Eliquis 2.5mg orally twice daily -Please follow serial examswhen she was first bleeding she had abdominal bruising around the hernia, obviously there is none now -Please follow serial CBC to trend her hemoglobin Infection -The hematoma appeared to have gotten infected based on inflammatory findings. She was treated with antibiotics. Her treatment has kiko completed. Hernia -She continues to actively follow with [facility] surgicalthey have intentions of repairing hernia in the near future, obviously coordination with the timing of this will also play a role in dosing of her blood thinners. -Her left lower abdominal wounds will be ongoing evaluation at the [facility] wound clinic and [facility] general surgeryand they noted that if debridement needs to be done, it likely could be done at the time of hernia repair. Pending Studies at Discharge: No Stand-Alone Forms: My [facility] Skilled Items Patient informed of condition?: Yes DNR: No Discharge Level of Care: Skilled Communicable Disease: No Discharge Prognosis: Stable Lines: None Urinary Catheter: No Medications and DC Order Prescriptions: New Eliquis 2.5 mg Tablet 2.5 mg PO BID 30 Days Qty: 60 RF: 0 Continued allopurinol 300 mg tablet 300 mg PO QAM RF: 0 furosemide [Lasix] 40 mg Tablet 40 mg PO QAM Qty: 0 RF: 0 cholecalciferol (vitamin D3) [Vitamin D3] 2,000 unit Capsule 6,000 unit PO QAM Qty: 0 RF: 0 diclofenac sodium 1 % gel 2 g topical QID PRN (Reason: joint pain) RF: 0 (DME) Shower Chair Misc See Rx Instructions .Route Qty: 1 RF: 0 metoprolol tartrate 50 mg tablet 50 mg PO BID Qty: 60 RF: 11 aspirin 81 mg tablet,delayed release (DR/EC) 81 mg PO QAM RF: 0 nitroglycerin 0.4 mg tablet, sublingual 0.4 mg SL Q5M PRN (Reason: chest pain) Qty: 25 RF: 0 cilostazol 100 mg tablet 100 mg PO BID RF: 0 famotidine 40 mg tablet 40 mg PO HS RF: 0 spironolactone 50 mg tablet 50 mg PO QAM RF: 0 acetaminophen [Tylenol Extra Strength] 500 mg Tablet 1,000 mg PO Q6H PRN (Reason: Pain) RF: 0 colchicine 0.6 mg tablet 0.6 mg PO QAM RF: 0 escitalopram oxalate 5 mg tablet 5 mg PO QAM RF: 0 Discontinued warfarin 5 mg tablet See Rx Instructions PO DAILY RF: 0 Discharge Orders: Discharge Order (Routine); Ordered 06/14/21 Ordered By: Scott Rowland Admission Data Admit Date/Time: 05/22/21 18:17 Attending Provider: Scott Rowland Admit Provider: Alexys Randhawa Primary Care Provider: Sabina Lilly Other Providers: Johan England Jr ; Alexys Randhawa ; [facility] ; [facility] ; [facility] ; [facility] ; Lizz Aguilar ; [facility] Other Interventions: Discharge Summary Assessment (RN) Last Done: 06/14/21 15:28 Coding Level of Care Code D/C DAY MANAGEMENT >30 MINS Diagnoses Hernia K46.9 Hematoma T14.8XXA DVT (deep venous thrombosis) I82.409 CKD (chronic kidney disease) stage 3, GFR 30-59 ml/min N18.3 CAD (coronary artery disease) I25.10 GERD (gastroesophageal reflux disease) K21.9 Hyperlipemia E78.5
== END 2021-06-14 15:49 | DRG 603 ==
LOC: ED 09:05 → 2W 09:05 → SUATTDRO 16:20 → 2W 19:05 → SUATTDRO 05-22 18:17 → 3E 05-22 23:12
DX: Z91.040 Latex allergy status; R11.10 Vomiting, unspecified; I13.0 Hypertensive heart and chronic kidney disease with heart failure and stage 1 through stage 4 chronic kidney disease, or unspecified chronic kidney disease; Z88.1 Allergy status to other antibiotic agents; Z79.899 Other long term (current) drug therapy; T36.0X5A Adverse effect of penicillins, initial encounter; Z95.1 Presence of aortocoronary bypass graft; Z88.2 Allergy status to sulfonamides; F32.9 Major depressive disorder, single episode, unspecified; K21.9 Gastro-esophageal reflux disease without esophagitis; S31.109A Unspecified open wound of abdominal wall, unspecified quadrant without penetration into peritoneal cavity, initial encounter; E87.6 Hypokalemia; R00.0 Tachycardia, unspecified; Z79.02 Long term (current) use of antithrombotics/antiplatelets; L98.499 Non-pressure chronic ulcer of skin of other sites with unspecified severity; Z79.82 Long term (current) use of aspirin; Z79.01 Long term (current) use of anticoagulants; I95.1 Orthostatic hypotension; N18.30 Chronic kidney disease, stage 3 unspecified; R79.89 Other specified abnormal findings of blood chemistry; Y92.239 Unspecified place in hospital as the place of occurrence of the external cause; Z91.09 Other allergy status, other than to drugs and biological substances; D62 Acute posthemorrhagic anemia; M10.9 Gout, unspecified; X58.XXXA Exposure to other specified factors, initial encounter; R53.1 Weakness; M19.90 Unspecified osteoarthritis, unspecified site; I25.10 Atherosclerotic heart disease of native coronary artery without angina pectoris; E78.5 Hyperlipidemia, unspecified; Z86.718 Personal history of other venous thrombosis and embolism; M79.81 Nontraumatic hematoma of soft tissue; K43.9 Ventral hernia without obstruction or gangrene; Z88.8 Allergy status to other drugs, medicaments and biological substances; R19.7 Diarrhea, unspecified; N17.9 Acute kidney failure, unspecified; M81.0 Age-related osteoporosis without current pathological fracture; C88.4 Extranodal marginal zone B-cell lymphoma of mucosa-associated lymphoid tissue [MALT-lymphoma]; Z87.891 Personal history of nicotine dependence; F41.9 Anxiety disorder, unspecified; L08.9 Local infection of the skin and subcutaneous tissue, unspecified; I50.9 Heart failure, unspecified; Z82.49 Family history of ischemic heart disease and other diseases of the circulatory system